=== PATIENT | male | born 1935 | race Caucasian/White ===

== ENCOUNTER → 2016-08-14 | Outpatient (CLI) | payer BC ==
[~2016-08-14] MED LIST: ACET-1257 PO; AMLO-110 PO; ASPI81TA28 PO; CHOL1CAP67 PO; CLOP1TAB15 PO; CYAN10005 PO; DXY100 PO; GLIM1TAB2 PO; KETO1DRO13 OPB; LISI-787 PO; LPT40 PO; NTRGSL/4 UT; NXM/40 PO; RIVA1TAB4 PO; SILD100T PO; TPRSR/50 PO; TPRSR100 PO
[2016-08-14 11:56] LABS: HEMATOCRIT 40.6 % (42-52); MEAN CELL VOLUME 89.2 fL (80-100); MEAN CORPUSCULAR HEMOGLOBIN 30.1 pg (25-34); MEAN CORPUSCULAR HGB CONC 33.7 g/dl (32-36); MEAN PLATELET VOLUME 9.7 fL (7.4-10.4); PLATELET COUNT 181 K/uL (130-400); RED BLOOD COUNT 4.55 M/uL (4.7-6.1); WHITE BLOOD COUNT 7.52 K/uL (4.8-10.8)
[2016-08-14 12:28] LABS: ESTIMATED AVERAGE GLUCOSE 148 mg/dl; HA1C FLAG Normal (Normal)
[2016-08-14 12:29] LABS: BLOOD UREA NITROGEN 26 mg/dl (7-18); BUN/CREATININE RATIO 18.2 (10-20); CALCIUM 8.6 mg/dl (8.5-10.1); CARBON DIOXIDE 28 mmol/L (21-32); CHLORIDE 108 mmol/L (98-107); GLUCOSE 213 mg/dl (70-99); POTASSIUM 4.2 mmol/L (3.5-5.1); SODIUM 144 mmol/L (136-145)
== END | disposition home or self-care (01) ==
LOC: C.LAB 10:25
PROVIDERS: ATTEND Internal Medicine Geriatric Medicine
DX: I48.91 Unspecified atrial fibrillation (principal); Z79.01 Long term (current) use of anticoagulants; I12.9 Hypertensive chronic kidney disease with stage 1 through stage 4 chronic kidney disease, or unspecified chronic kidney disease; N18.3 Chronic kidney disease, stage 3 (moderate); E11.9 Type 2 diabetes mellitus without complications; E55.9 Vitamin D deficiency, unspecified

== ENCOUNTER 2016-08-17 06:31 | Observation (INO) | payer BC ==
[2016-08-14 12:04] LABS: INR 1.3 (0.9-1.1); PARTIAL THROMBOPLASTIN RATIO 1.2; PROTHROMBIN TIME (PATIENT) 14.4 SECONDS (9.0-12.0)
[2016-08-17] VITALS (14 sets, daily range): BP systolic 118–187; BP diastolic 67–90; PULSE 61–102; TEMP 36.5–37.3; O2SAT 94–97; Ht 182.9 cm; Wt 85.4 kg
[~2016-08-17] VITALS: Ht 182.9 cm; Wt 85.4 kg
[~2016-08-17 06:31] MED LIST changes: +CEFAZOLIN 1000MG/55 ML D5W IV SCH; -KETO1DRO13 OPB; +LACTATED RINGER'S 1000ML 1,000 ML IV SCH; -TPRSR100 PO
[2016-08-17] MEDS ORDERED: KETO1DRO13 OPB (07:28)
[2016-08-17] MEDS ORDERED: BACITRACIN OINT 0.9 GM PKT ONE (07:42)
[2016-08-17] MEDS ORDERED: BACITRACIN 50000 UNIT VIAL ONE (07:43)
[2016-08-17] MEDS ORDERED: LIDOCAINE HCL 1% 20 ML VIAL ONE (07:43)
[2016-08-17] MEDS ORDERED: KEFZOL SPECIAL PROCEDURE STOCK 1 GM ADDVIAL IV ONE (08:36)
[2016-08-17] MEDS ORDERED: FENTANYL CITRATE INJ 50 MCG/1 ML 2 ML VIAL ONE ×2 (08:36→09:08)
[2016-08-17] MEDS ORDERED: MIDAZOLAM HCL 1 MG/ML 2ML VIAL ONE (08:36)
--- NOTE | 2016-08-17 08:56 | Procedure Note ---
Pre-Mod Sedation Assessment General Date of Moderate Sedation: Aug 17, 2016. Vital Signs: Vital Signs Past 12 Hours Date Time Temp Pulse Resp B/P Pulse Ox O2 Delivery O2 Flow Rate FiO2 08/17/16 07:05 36.9 20 135/83 96 Room Air Review Cardiovascular: + irregularly irregular Abdomen: normal bowel sounds Lungs: lungs clear Pre-Sedation Airway Assessment Oral Cavity: Chipped Teeth Smoking Status: Never Smoker Procedure Planning Contraindications-for Mod Sed: None Yes Notes The planned sedation has been discussed with the patient and consent obtained. I have identified the patient, determined the appropriateness of sedation and have assessed the patient immediately prior to the procedure. All medicine(s) and interventions are by my order.
--- NOTE | 2016-08-17 08:57 | History & Physical Bridge Note ---
H&P Re-Evaluation Bridge Note: I have examined the patient, reviewed the History & Physical and in the interval since the performance of the History & Physical I have noted the following changes of clinical significance: No changes noted. I reviewed the indications, procedure, risks and alternatives with him and he understands and agrees to proceed. Consent obtained.
--- NOTE | 2016-08-17 09:52 | Procedure Note ---
Post-Mod Sedation Assessment General Date of Moderate Sedation Aug 17, 2016. Vital Signs: Vital Signs Past 12 Hours Date Time Temp Pulse Resp B/P Pulse Ox O2 Delivery O2 Flow Rate FiO2 08/17/16 07:05 36.9 20 135/83 96 Room Air Review - Discharge Criteria Vital Signs Stable: Yes Alert/Oriented/Conversant: Yes Returned to Baseline Mental St: Yes Nausea Absent/Minimal: Yes Pain/Discomfort/Absent/Minimal: Yes Normal/Baseline Respirations: Yes Active Bleeding?: No
--- NOTE | 2016-08-17 09:54 | Cardiology Procedure Brief Nt ---
Preliminary Cardiology Note Procedure Date Aug 17, 2016. Pre-Procedure Diagnosis atrial fibrillation with pauses Post-Procedure Diagnosis same Procedure(s) Performed Single-chamber pacemaker implantation Rating Examiner Dr. Canales Overlock Sleeve Setter(s) none Estimated Blood Loss 50 cc Preliminary Findings Good lead position, good measurements Recommendations Monitor overnight Specimens None Anesthesia local with sedation Complication(s) None Disposition PCU
[2016-08-17] MEDS ORDERED: KETOROLAC TROMETHAMINE 10 MG TAB PO PRN (10:00)
[2016-08-17] MEDS ORDERED: ACETAMINOPHEN 325 MG TAB PO PRN (10:00)
[2016-08-17] MEDS ORDERED: NITROGLYCERIN 0.4 MG SL PER TAB CHARGE UT PRN (10:00)
[2016-08-17] MEDS: METOPROLOL SUCC 50MG EXT REL TAB PO SCH ×2 (10:00→13:36)
--- NOTE | 2016-08-17 11:14 | OPERATIVE REPORT ---
DATE OF OPERATION: 08/17/2016 PREOPERATIVE DIAGNOSIS: Atrial fibrillation with pauses. POSTOPERATIVE DIAGNOSIS: Same. PROCEDURE: Single chamber pacemaker implantation. SURGEON: Lyndon Canales M.D. ANESTHESIA: Local with sedation. HISTORY OF PRESENT ILLNESS: This is an 81-year-old gentleman who has a history of permanent atrial fibrillation and very frequent premature ventricular beats. When treated with beta blockade. The premature beats were suppressed; however, he developed significant pauses of approaching 3 seconds and the concern was to maintain beta blockade in the setting of a slow heart rate. He underwent attempt at PVC ablation, but this was unsuccessful on 06/01/2016. We therefore are going to implant a pacemaker to prevent the pauses and add beta blockade. 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 After obtaining informed consent for the procedure, he was brought to the laboratory on the morning of 08/17/2016 being NPO after midnight. He was identified in the laboratory, prepped and draped in standard sterile manner for a left-sided pacemaker implantation. The left prepectoral region was anesthetized with 1% lidocaine local anesthetic and left subclavian venipuncture was performed by percutaneous technique and a guidewire placed through the left subclavian vein into the superior vena cava. The area was further infiltrated with 1% lidocaine local anesthetic and a 5 cm incision was made parallel to the left clavicle and 2 cm below it and carried down to the anterior pectoralis fascia. A pacemaker pocket was formed by blunt dissection anterior to the pectoralis fascia and a bacitracin-soaked sponge (50,000 units in 50 mL normal saline solution) was placed in the pocket. An 8-[place] Medtronic lead introducer was placed over the guidewire into the left subclavian vein, the dilator and guidewire were removed and a bipolar active fixation steroid-tipped ventricular lead was advanced through the introducer into the superior vena cava. The guidewire was placed through the introducer and introducer stripped away from lead and guidewire. Using a curved stylette, the ventricular lead was advanced through the right ventricular outflow tract into the pulmonary artery and then using a straight stylette was positioned in the right ventricular apex. Once in position, the ventricular pacing threshold was evaluated in bipolar configuration at a pulse width of 0.5 milliseconds. Final ventricular pacing threshold was 0.4 volts with a current of 0.5 milliamp, 5-volt lead impedance was 749 ohms and R-waves were sensed at 4.1 millivolts. Diaphragmatic pacing was not present with a 10 volt bipolar output. Once leads were in position, it was attached to the anterior pectoralis fascia using 2 sutures of 2-0 silk around the lead collar. The bacitracin-soaked sponge was removed from the pocket, the guidewire was removed from left subclavian vein and hemostasis was obtained. There was a fair amount of oozing as the patient is on aspirin and Plavix, which were not held, he was also on Xarelto, which was held. The pacemaker was placed in the pocket with the lead coiled beneath it and the incision was closed with a running double subcutaneous closure of 3-0 Vicryl, followed by a running subcuticular skin closure of 4-0 Vicryl. Bacitracin ointment was placed on incision and a pressure dressing applied. The patient tolerated the procedure well, there were no complications and estimated blood loss was 50 mL. The patient was transferred to the holding area and subsequently will go to the telemetry unit. The ventricular lead is a Medtronic model 5076, serial number [id number] and is a bipolar active fixation steroid-tipped MRI compatible lead. The pacemaker is a Medtronic Advisa SR MRI SureScan, model A3SR01 serial number [id number]. This device was reprogrammed in the laboratory to final settings. This is an MRI compatible system. SHERINE
[2016-08-17] MEDS ORDERED: IV FLUIDS COMPLETED PRN (14:30)
[2016-08-17] MEDS: CEFAZOLIN IV 2,000 MG in DEXTROSE 5% 50ML 50 ML IV SCH (17:28)
[2016-08-17] MEDS ORDERED: ATORVASTATIN 40 MG TAB PO SCH (21:00)
[2016-08-18 00:20] VITALS: O2SAT 96
[2016-08-18] MEDS: CEFAZOLIN IV 2,000 MG in DEXTROSE 5% 50ML 50 ML IV SCH ×2 (01:55→09:33)
[2016-08-18 03:04] VITALS: BP 166/86; PULSE 70; TEMP 36.6; O2SAT 96
[2016-08-18 04:20] VITALS: O2SAT 96
[2016-08-18 06:39] LABS: CREATININE 1.4 mg/dl (0.60-1.40)
--- NOTE | 2016-08-18 07:52 | DIAGNOSTIC IMAGING REPORT ---
CHEST 2 VIEWS ROUTINE HISTORY: EXACT TIME ORDERED Evaluate for pneumothorax and lead placement COMPARISON: Chest 02/12/2007. FINDINGS: Interval placement of a left-sided single lead pacemaker. The lead appears intact. No pneumothorax. No pleural effusions. The heart remains mildly enlarged. The lungs are clear. IMPRESSION: Left-sided single lead pacemaker. The lead is intact. No pneumothorax. Electronically signed by: Marquez Khan M.D. 08/18/2016 7:50 AM Dictated Date/Time: 08/18/2016 7:48 AM
[2016-08-18 08:03] VITALS: BP 142/73; PULSE 63; TEMP 36.8; O2SAT 96
[2016-08-18] MEDS ORDERED: TPRSR100 PO (08:53)
--- NOTE | 2016-08-18 08:56 | Cardiology Follow-Up ---
Subjective Date of Service: Aug 18, 2016. Pt evaluation today including: conversation w/ patient, physical exam, lab review, review of studies, review of inpatient medication list History of Present Illness Doing well post pacemaker yesterday, no significant incisional discomfort. No palpitations. Social History Smoking Status: Never Smoker History of Alcohol Use: Yes (1 a week) Review of Systems Respiratory: No shortness of breath Cardiac: No chest pain Objective Vital Signs Past 12 Hours Date Time Temp Pulse Resp B/P Pulse Ox O2 Delivery O2 Flow Rate FiO2 08/18/16 08:03 36.8 63 20 142/73 96 Room Air 08/18/16 04:20 96 Room Air 08/18/16 03:04 36.6 70 20 166/86 96 Room Air 08/18/16 00:20 96 Room Air 08/17/16 23:33 36.6 88 18 160/68 96 Room Air Last Recorded Weight-Kilograms: 85.400 Intake & Output 8-Hour Column 08/17/16 08/18/16 08/18/16 16:00 00:00 08:00 Intake Total 40 ml 375 ml 60 ml Output Total 375 ml 500 ml 650 ml Balance -335 ml -125 ml -590 ml 24-Hour Column 08/18/16 08:00 Intake Total 475 ml Output Total 1525 ml Balance -1050 ml Physical Exam Constitutional: Level of Distress: NAD Lungs: Auscultation: breath sounds normal Cardiovascular: Heart Auscultation: no rubs, irregular rate rhythm Pacer site is clean and dry, no hematoma. Data Laboratory Results: Last 24 Hours Test 08/18/16 05:31 Creatinine 1.40 mg/dl Est Creatinine Clear Calc Drug Dose 44.7 ml/min Estimated GFR () 53.8 Estimated GFR (Non- 46.5 Imaging: Chest x-ray shows good lead position, no pneumothorax EKG: Atrial fibrillation with PVCs and occasional ventricular pacing. Telemetry reviewed: Atrial fibrillation with frequent PVCs, intermittent ventricular pacing, appropriate function. Pacemaker evaluation: Excellent pacing and sensing characteristics. Assessment and Plan #1. Postop pacemaker: The device is functioning well, he is stable for discharge today. He should have his last dose of antibiotic which could be given slightly early if desired. I will arrange follow-up for Sunday. We will send him home on an increased dose of beta blockade and monitor his arrhythmia as an outpatient using his pacemaker.
--- NOTE | 2016-08-18 08:56 | Discharge Instructions ---
Discharge Instructions Admission Atrial Fibrillation With Slow Ventricular Response Discharge Discharge Diagnosis / Problem: S/P Single-chamber pacemaker implantation Discharge Goals Goal(s): Improve disease control Activity Recommendations Activity Limitations: as noted below . Instructions / Follow-Up Instructions / Follow-Up ACTIVITY RECOMMENDATIONS: * Do not raise affected arm over head for 2 weeks. SPECIAL CARE INSTRUCTIONS: * If bleeding occurs, apply direct pressure to area for 5 minutes. * Call your doctor if you have severe pain, fever, drainage or bleeding at site. * Keep dressing on and dry for 48 hours then remove. * Keep any scheduled doctor's appointment. * Implant Card - hand held device with website information given. SKIN IRRITATION: * You may experience some redness and/or swelling in the area where radiation was administered. If any skin irritation occurs, please contact your family physician. FOLLOW UP VISIT: 08/21/16 @ 10:15 am for incision check Current Hospital Diet Patient's current hospital diet: AHA Diet (Heart Healthy) Discharge Diet Recommended Diet: AHA Diet (Heart Healthy) Pending Studies Studies pending at discharge: no Laboratory Results Hemoglobin A1c Test 08/14/16 10:35 Range/Units Estimated Average Glucose 148 mg/dl Hemoglobin A1c 6.8 H 4.5-5.6 % Medical Emergencies . Who to Call and When: Medical Emergencies: If at any time you feel your situation is an emergency, please call 911 immediately. . Non-Emergent Contact Non-Emergency issues call your: Sped Teacher . . "Provider Documentation" section prepared by Jennifer Roth. VTE Core Measure Inpt VTE Proph given/why not?: Treatment not indicated
[2016-08-18] MEDS ORDERED: CLOPIDOGREL BISULFATE 75 MG TAB PO SCH (09:00)
[2016-08-18] MEDS: METOPROLOL SUCC 50MG EXT REL TAB PO SCH (09:00)
[2016-08-18] MEDS ORDERED: GLIMEPIRIDE 2 MG TAB PO SCH (09:00)
[2016-08-18] MEDS ORDERED: ASPIRIN 81 MG ECTAB PO SCH (09:00)
[2016-08-18] MEDS ORDERED: CYANOCOBALAMIN 500 MCG TAB (VIT B-12) PO SCH (09:00)
[2016-08-18] MEDS ORDERED: AMLODIPINE BESYLATE 5 MG TAB PO SCH (09:00)
[2016-08-18] MEDS ORDERED: LISINOPRIL/HCTZ 20/12.5MG TAB PO SCH (09:00)
[2016-08-18 09:58] VITALS: BP 142/73; PULSE 63; TEMP 36.8; O2SAT 96
[2016-08-18] MEDS ORDERED: RIVAROXABAN 10 MG TAB PO SCH (16:45)
--- NOTE | 2016-08-18 17:23 | Discharge Summary ---
Discharge Summary Admission Date: Aug 17, 2016 at 09:59 Discharge Date: Aug 18, 2016 Discharge Disposition: Home Primary Diagnosis: Atrial fibrillation with slow ventricular response Procedures: Single chamber pacemaker implantation Discharge Instructions Last Recorded Wt (Kilograms): 85.400 Activity Recommendations: limitations as noted below Allergies: Coded Allergies: No Known Allergies (Verified , 08/17/16) Additional Instructions: ACTIVITY RECOMMENDATIONS: * Do not raise affected arm over head for 2 weeks. SPECIAL CARE INSTRUCTIONS: * If bleeding occurs, apply direct pressure to area for 5 minutes. * Call your doctor if you have severe pain, fever, drainage or bleeding at site. * Keep dressing on and dry for 48 hours then remove. * Keep any scheduled doctor's appointment. * Implant Card - hand held device with website information given. SKIN IRRITATION: * You may experience some redness and/or swelling in the area where radiation was administered. If any skin irritation occurs, please contact your family physician. FOLLOW UP VISIT: Keep any scheduled doctor appointments. Special Care: Call your doctor if: * Temperature above 101 degrees * Pain not relieved by pain medicine ordered * There is increased drainage or redness from any incision * You have any unanswered questions or concerns. Avoid all tobacco products. If you need help to stop smoking, call [place]'s FREE QUITLINE at . This is a free call. Admission HPI This is an 81-year-old gentleman who has a history of permanent atrial fibrillation and very frequent premature ventricular beats. When treated with beta blockade. The premature beats were suppressed; however, he developed significant pauses of approaching 3 seconds and the concern was to maintain beta blockade in the setting of a slow heart rate. He underwent attempt at PVC ablation, but this was unsuccessful on 06/01/2016. We therefore are going to implant a pacemaker to prevent the pauses and add beta blockade. 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 Admission Physical Exam Additional Comments: Constitutional: Alert, cooperative and in no distress. HEENT: Unremarkable Neck: No jugular venous distention, carotid pulses are irregular but otherwise normal and equal bilaterally without bruits. Pulmonary: Clear to auscultation bilaterally. Cardiac: Irregular rhythm with no murmur, gallop or rub. Abdomen: Soft, nontender with normal bowel sounds. Extremities: No edema. Distal pulses intact. Neurologic: No focal findings. Gait is steady. Skin: No rash, ecchymoses or petechiae. Hospital Course Patient with atrial fibrillation with pauses underwent single-chamber pacemaker implantation on 08/18/[address] Canales. He tolerated the procedure well. Device check the following day showed excellent sensing and pacing characteristics. CXR showed good lead placement and no evidence of pneumothorax. He was deemed stable for discharge home and will have a follow-up appointment on 08/21/16 for a wound check. His Metoprolol was increased to 100 mg daily upon discharge. Total time spent on discharge = This includes examination of the patient, discharge planning, medication reconciliation, and communication with other providers.
== END 2016-08-18 10:45 | disposition home or self-care (01) ==
LOC: C.ACU 06:31 → C.2T 09:59
PROVIDERS: ADMIT Internal Medicine Cardiovascular Disease; ATTEND Internal Medicine Cardiovascular Disease
DX: I48.2 Chronic atrial fibrillation (principal); I42.9 Cardiomyopathy, unspecified; Z79.01 Long term (current) use of anticoagulants; I49.5 Sick sinus syndrome

== ENCOUNTER → 2017-01-18 | Outpatient (CLI) | payer BC ==
[~2017-01-18] MED LIST changes: -CEFAZOLIN 1000MG/55 ML D5W IV SCH; -DXY100 PO; +KETO1DRO13 OPB; -LACTATED RINGER'S 1000ML 1,000 ML IV SCH; -TPRSR/50 PO; +TPRSR100 PO
[2017-01-18 10:44] LABS: BASO % 0.5 %; BASO ABS # 0.04 K/uL (0-0.2); COMPLETE YES; EOS % 2.5 %; HEMATOCRIT 40.1 % (42-52); IG% 0.1 %; LYMPH % 23.7 %; LYMPH ABS # 1.96 K/uL (1.2-3.4); MEAN CELL VOLUME 89.3 fL (80-100); MEAN CORPUSCULAR HEMOGLOBIN 29.2 pg (25-34); MEAN CORPUSCULAR HGB CONC 32.7 g/dl (32-36); MEAN PLATELET VOLUME 9.8 fL (7.4-10.4); MONO % 8.1 %; NEUT % 65.1 %; PLATELET COUNT 158 K/uL (130-400); RED BLOOD COUNT 4.49 M/uL (4.7-6.1); WHITE BLOOD COUNT 8.27 K/uL (4.8-10.8)
[2017-01-18 11:11] LABS: ESTIMATED AVERAGE GLUCOSE 177 mg/dl; HA1C FLAG Normal (Normal)
[2017-01-18 11:15] LABS: BLOOD UREA NITROGEN 28 mg/dl (7-18); BUN/CREATININE RATIO 18.8 (10-20); CALCIUM 8.8 mg/dl (8.5-10.1); CARBON DIOXIDE 28 mmol/L (21-32); CHLORIDE 106 mmol/L (98-107); GLUCOSE 144 mg/dl (70-99); POTASSIUM 4.7 mmol/L (3.5-5.1); SODIUM 142 mmol/L (136-145)
[2017-01-18 11:52] LABS: URINE PROTIEN/CREAT RATIO 0.2 (0-0.2); URINE TOTAL PROTEIN 27.3 mg/dl (0-11.9)
== END | disposition home or self-care (01) ==
LOC: C.LAB 09:22
PROVIDERS: ATTEND Internal Medicine Geriatric Medicine
DX: E11.29 Type 2 diabetes mellitus with other diabetic kidney complication (principal); N18.3 Chronic kidney disease, stage 3 (moderate); I12.9 Hypertensive chronic kidney disease with stage 1 through stage 4 chronic kidney disease, or unspecified chronic kidney disease; E78.5 Hyperlipidemia, unspecified; E55.9 Vitamin D deficiency, unspecified; R00.1 Bradycardia, unspecified; I42.9 Cardiomyopathy, unspecified

== ENCOUNTER → 2017-04-25 | Outpatient (CLI) | payer BC ==
[2017-04-25 10:09] LABS: ESTIMATED AVERAGE GLUCOSE 163 mg/dl; HA1C FLAG Normal (Normal)
[2017-04-25 10:21] LABS: BLOOD UREA NITROGEN 33 mg/dl (7-18); BUN/CREATININE RATIO 22.1 (10-20); CALCIUM 9.3 mg/dl (8.5-10.1); CARBON DIOXIDE 28 mmol/L (21-32); CHLORIDE 107 mmol/L (98-107); CHOLESTEROL 141 mg/dl (0-200); GLUCOSE 140 mg/dl (70-99); POTASSIUM 4.1 mmol/L (3.5-5.1); SODIUM 142 mmol/L (136-145); TRIGLYCERIDES 125 mg/dl (0-150); VERY LOW DENSITY LIPOPROT CALC 25 mg/dl
[2017-04-25 10:24] LABS: CHOLESTEROL/HDL RATIO 3.4; HDL CHOLESTEROL 41 mg/dl; LDL CHOLESTEROL CALCULATED 75 mg/dl
== END | disposition home or self-care (01) ==
LOC: C.LAB 07:23
PROVIDERS: ATTEND Internal Medicine Geriatric Medicine
DX: I25.10 Atherosclerotic heart disease of native coronary artery without angina pectoris (principal); I12.9 Hypertensive chronic kidney disease with stage 1 through stage 4 chronic kidney disease, or unspecified chronic kidney disease; N18.3 Chronic kidney disease, stage 3 (moderate); E11.22 Type 2 diabetes mellitus with diabetic chronic kidney disease; I48.2 Chronic atrial fibrillation; Z79.01 Long term (current) use of anticoagulants

== ENCOUNTER → 2017-11-14 | Outpatient (CLI) | payer BC ==
--- NOTE | 2017-11-14 09:25 | DIAGNOSTIC IMAGING REPORT ---
L HIP UNILATERAL 2 VIEWS, R HIP UNILATERAL 2 VIEWS CLINICAL HISTORY: 82 years-old Male presenting with PAIN. TECHNIQUE: Frontal and frog-leg lateral views of the right and left hips were obtained. COMPARISON: 09/18/2014. FINDINGS: Left hip: Left hip joint congruent. Normal appearance of the left femoral head. No acute fracture or malalignment. No advanced degenerative change. Joint space preserved. Atherosclerosis. No change since the prior exam. Right hip: Hip joint congruent. Normal appearance of the right femoral head. No acute fracture or malalignment. No advanced degenerative change. Joint spaces preserved. Atherosclerosis. No change since the prior exam. IMPRESSION: No acute osseous injury or advanced degenerative change of the right or left hips. No change since 2014. Electronically signed by: Albaro Alvarez M.D. 11/14/2017 9:23 AM Dictated Date/Time: 11/14/2017 9:22 AM
[2017-11-14 11:35] LABS: BASO % 0.4 %; BASO ABS # 0.04 K/uL (0-0.2); EOS % 3.7 %; EOS ABS # 0.34 K/uL (0-0.5); HEMATOCRIT 40.1 % (42-52); HEMOGLOBIN 13.2 g/dL (14.0-18.0); IG# 0.02 K/uL (0.00-0.02); LYMPH % 17.3 %; MEAN CELL VOLUME 90.5 fL (80-100); MEAN CORPUSCULAR HEMOGLOBIN 29.8 pg (25-34); MEAN CORPUSCULAR HGB CONC 32.9 g/dl (32-36); MEAN PLATELET VOLUME 9.8 fL (7.4-10.4); MONO % 8.9 %; MONO ABS # 0.82 K/uL (0.11-0.59); NEUT % 69.5 %; NEUT ABS # 6.42 K/uL (1.4-6.5); PLATELET COUNT 181 K/uL (130-400); RED CELL DISTRIBUTION WIDTH CV 15.7 % (11.5-14.5); RED CELL DISTRIBUTION WIDTH SD 52.1 fL (36.4-46.3); WHITE BLOOD COUNT 9.24 K/uL (4.8-10.8)
[2017-11-14 11:58] LABS: BLOOD UREA NITROGEN 28 mg/dl (7-18); CALCIUM 8.6 mg/dl (8.5-10.1); CARBON DIOXIDE 28 mmol/L (21-32); CREATININE 1.56 mg/dl (0.60-1.40); GLUCOSE 212 mg/dl (70-99); POTASSIUM 4.4 mmol/L (3.5-5.1); SODIUM 138 mmol/L (136-145)
[2017-11-14 12:16] LABS: HEMOGLOBIN A1C 7.6 % (4.5-5.6)
== END | disposition home or self-care (01) ==
LOC: C.RADBC 07:58
PROVIDERS: ATTEND Internal Medicine Geriatric Medicine
DX: M25.551 Pain in right hip (principal); M25.552 Pain in left hip; I10 Essential (primary) hypertension; D64.9 Anemia, unspecified; E11.9 Type 2 diabetes mellitus without complications; E11.29 Type 2 diabetes mellitus with other diabetic kidney complication; E55.9 Vitamin D deficiency, unspecified; N18.3 Chronic kidney disease, stage 3 (moderate)

== ENCOUNTER → 2017-11-19 | Outpatient (CLI) | payer BC ==
--- NOTE | 2017-11-19 12:28 | DIAGNOSTIC IMAGING REPORT ---
BILATERAL LOWER EXTREMITY ARTERIAL DOPPLER ULTRASOUND CLINICAL HISTORY: Intermittent claudication. Bilateral hip pain. COMPARISON STUDY: Bilateral lower extremity arterial Doppler ultrasound September 21, 2014. FINDINGS: Ankle to brachial indices could not be obtained due to noncompressibility of the vessels. Biphasic flow is identified throughout each lower extremity. Moderate atherosclerotic plaque was noted. An elevated peak systolic velocity of 325 cm/s was noted within the right posterior tibial artery. No additional elevated velocities were identified. Vessels appear patent. IMPRESSION: 1. Moderate atherosclerotic plaque within each lower extremity. 2. 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 3. Biphasic flow throughout each lower extremity. Electronically signed by: Murray Parra M.D. 11/19/2017 12:27 PM Dictated Date/Time: 11/19/2017 12:24 PM
--- NOTE | 2017-11-19 12:34 | DIAGNOSTIC IMAGING REPORT ---
ABDOMINAL AORTIC ANEURYSM CLINICAL HISTORY: Intermittent claudication. COMPARISON STUDY: Abdominal aortic ultrasound September 15, 2014. FINDINGS: The caliber of the abdominal aorta is normal. The proximal abdominal aorta measures 1.6 cm, the mid abdominal aorta measures 1.8 cm and the distal abdominal aorta measures 1.6 cm. 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 IMPRESSION: Normal caliber abdominal aorta. Electronically signed by: Murray Parra M.D. 11/19/2017 12:33 PM Dictated Date/Time: 11/19/2017 12:27 PM
== END | disposition home or self-care (01) ==
LOC: C.ULTR 09:45
PROVIDERS: ATTEND Internal Medicine Geriatric Medicine
DX: I73.9 Peripheral vascular disease, unspecified (principal); M25.551 Pain in right hip; M25.552 Pain in left hip

== ENCOUNTER 2019-11-03 10:53 | Inpatient (IN) ==
[2019-11-03] MEDS ORDERED: SODIUM CHLORIDE 0.9% 500 ML IV ONE (11:16)
[2019-11-03 11:35] LABS: Basophils # (auto) 0.03 K/uL (0-0.2); Basophils % (auto) 0.4 %; Eosinophils # (auto) 0.13 K/uL (0-0.5); Eosinophils % (auto) 1.5 %; Hematocrit (blood only) 35.7 % (42-52); Hemoglobin 11.5 g/dL (14.0-18.0); Immature Granulocytes # (auto) 0.02 K/uL (0.00-0.02); Immature Granulocytes % (auto) 0.2 %; Lymphocytes # (auto) 0.97 K/uL (1.2-3.4); Lymphocytes % (auto) 11.5 %; Mean Corpuscular Hemoglobin 28.8 pg (25-34); Mean Corpuscular Hgb Conc 32.2 g/dL (32-36); Mean Corpuscular Volume 89.5 fL (80-100); Mean Platelet Volume 9.3 fL (7.4-10.4); Monocytes # (auto) 0.71 K/uL (0.11-0.59); Monocytes % (auto) 8.4 %; Neutrophils # (auto) 6.58 K/uL (1.4-6.5); Platelet Count 216 K/uL (130-400); RDW Coefficient of Variation 15.5 % (11.5-14.5); RDW Standard Deviation 50.3 fL (36.4-46.3); Red Blood Count 3.99 M/uL (4.7-6.1); White Blood Count 8.44 K/uL (4.8-10.8)
--- NOTE | 2019-11-03 11:37 | Emergency Department Note ---
Impression & Plan Seizure, Dehydration, Hypomagnesemia, History of subarachnoid hemorrhage, History of intraventricular hemorrhage, CKD (chronic kidney disease), Cardiac pacemaker in situ, Generalized weakness ED Provider Note NAME: CATERINA CARMEN AGE: 84 SEX: M ARRIVES VIA: Ambulance INFORMANT: Patient, ED PROVIDER(S): Vasu Cunningham MD CHIEF COMPLAINT: Generalized weakness MEDICAL DECISION MAKING: The patient is a pleasant 84-year-old gentleman with a past medical history of A. fib (previously on Xarelto but on hold 2 recent SAH), SSS s/p PPM, CKD, ischemic cardiomyopathy, recent spontaneous subarachnoid hemorrhage with intraventricular hemorrhage and associated infarcts several weeks ago, [place] [facility] [place] [facility] from [facility] on 10/27, able to ambulate with a cane but has developed generalized weakness and intermittent confusion over the past several days where he now unable to ambulate due to generalized weakness. On arrival the patient is chronically ill-appearing but no acute distress, afebrile stable vital signs. The patient has no focal neuro deficits but exhib its generalized weakness. EKG was performed which had significant artifact but no overt ST elevation or depression. Chest x-ray with some mild vascular prominence and otherwise no overt cardiopulmonary process. WBC and platelets within normal limits. H/H 11.5/35.7 decreased from prior however in the setting of complicated hospitalization. Chemistry with creatinine of 1.5 approximate to prior range of values in the setting of CKD., There is no acidosis. Calcium 6.9 and magnesium 0.4 with Mg repletion provided. LFTs unremarkable. Troponin 0.025, within normal limits. TSH within normal limits. CT head demonstrates resolution of the patient's prior subarachnoid hemorrhage but with trace intraventricular blood within the posterior right lateral ventricle which is "recurrent versus residual". Given the patient's reassuring exam initial plan was to repeat CT scan for further evaluation of chronicity of CT findings however he subsequently did have a seizure-like episode where RN reported patent began to have tonic-clonic movements with flexion of arms towards his chest and unresponsiveness which lasted approximately 60 seconds, upon my arrival to the bedside the patient exhibited subsequent alertness but postictal-like state with left gaze deviation followed by delirium/agitation and inability to redirect. This gradually resolved over the course of several minutes and additionally improved following 0.5 mg of Ativan. Given this new episode, case was discussed with [facility], Dr. King, stroke neurology who reviewed the patient's record and given description of CT findings today, agrees that findings are most likely related to residual intraventricular blood. Moreover the patient's seizure-like episode is likely related to seizure activity in the setting of his prior subarachnoid hemorrhage. The patient was not discharged on any prophylactic AED. Thus, recommends initiation of Keppra with initial loading dose of 1500 mg followed by 1,000mg twice daily. Additionally recommends repeat MRI to reevaluate for possible new CVA given his history of multifocal infarcts and basilar stenosis. Given small amount of blood noted on CT, he explains that even in the event that MRI continues with suspicion of possible recurrent bleed, he did not believe that this would necessarily require transfer as would not likely require any neurosurgical intervention. Moreover given the current climate with the novel coronavirus pandemic, attempt is being made to limit transfers that are not absolutely necessary. He reports a spot EEG could be considered however this would be unlikely to change the plan as the patient's presentation is consistent with seizure. Dr. King, did attempt to see if Dr. Kay, Neurosurgery, who followed the patient on his [facility] admission was available to discuss when he was going recommend to reinitiate the patient's anticoagulation but he was not on today. Recommends, [facility] admitting reaching out to him during admission to discuss this question. Dr. King's recommendation and plan for admission here was discussed with the patient, who was improved, and his female partner at the bedside and both expressed agreement with this plan. Case was discussed with Dr. Stephens, [facility] hospitalist, who expressed reservations about keeping patient here but agreed to evaluate the patient for admission. Patient was subsequently evaluate by Antonio Sotelo [place] admitting team PAC, who evaluated the patient and reviewed case with Dr. Zonia Rhodes, [place] admitting hospitalist, who also expressed reservations but would agree to admit if patie nt's MRI was reassuring. However, she explains that if MRI shows any evidence of acute process, [facility] would not accept admission and would recommend transfer to [facility]. Patient signed out to Dr. Hope at change of shift. At the time of signout, MRI just being performed after completing necessary steps for clearance ([employer] certified hyperbaric technician to be present, [facility] MRI/MRA-reports to accompany patient chart, etc.) given patient's PPM. Triage Nursing notes reviewed and agree them. Additional history obtained from [facility] discharge summary which he describes the patient's admission for [facility] but not on [facility], MRI/MRA which demonstrated jevon-mesencephalic subarachnoid hemorrhage with multifocal ischemic strokes in the left portia and cerebellum with suspicion for vasculitis. He was discharged to [facility] on 10/15. Prior medical records reviewed Vital Signs: reviewed and remarkable for hypertension. Differential diagnosis: Infection, dehydration, metabolic abnormality, hypo/hyperglycemia, electrolyte disturbance, anemia, hypoxia, cardiac sources, intracerebral event, toxicologic, neurologic, as well as other pathologies. ER treatment provided: See below Diagnostics interpreted by me: ECG: Sinus tachycardia with frequent PVCs, 118 bpm, left axis deviation, no ove rt ST elevation or depression. Cardiac Monitoring: ST, 118 bpm, frequent PVCs, Laboratory studies: See below Imaging studies: CT SCAN OF THE BRAIN WITHOUT IV CONTRAST CLINICAL HISTORY: Generalized weakness. Recent hemorrhage. COMPARISON STUDY: CT of the brain dated 10/09/2019. TECHNIQUE: Unenhanced axial CT scan of the brain is performed from the vertex to the skull base. A dose lowering technique was utilized adhering to the principles of ALARA. CT DOSE: 729.78 mGycm FINDINGS: Brain parenchyma: There are age-related involutional changes noting mild to moderate patchy subcortical and periventricular microangiopathic change. There is no parenchymal hematoma, mass effect, or evidence of acute territorial is chemia by CT criteria. Calhoun-white matter differentiation is preserved. A small chronic lacunar infarct is noted in the right cerebellar hemisphere. No extra- axial fluid collection is seen. Ventricles, sulci, cisterns: Prominent secondary to involutional change. There is trace blood within the posterior horn of the right lateral ventricle (axial image #17). Intracranial vasculature: There is atherosclerotic calcification of the cavernous carotid and vertebral arteries. Calvarium: Unremarkable. Soft tissues: A calcified sialolith is noted in the left parotid gland. Sinuses and mastoids: The visualized paranasal sinuses are clear. The mastoid air cells are well pneumatized. Orbits: The bony orbits are grossly intact. IMPRESSION: 1. The majority of the hemorrhage seen on the 10/09/2019 examination has resolved. 2. There is trace recurrent or residual intraventricular blood within the posterior horn of the right lateral ventricle. 3. There is no parenchymal hematoma, midline shift, or evidence of acute territorial ischemia by CT criteria. --- XR chest 1V portable CLINICAL HISTORY: 84 years-old Male presenting with Chest Pain. TECHNIQUE: Portable upright AP view of the chest was obtained. COMPARISON: 08/18/2016. FINDINGS: Left subclavian pacer with single lead to the right ventricular apex. Atherosclerosis of the aortic arch. Cardiac silhouette mildly enlarged. Mild pulmonary vascular prominence. No focal opacity. No large effusion or pneumothorax. Degenerative changes of the thoracic spine. Degenerative changes of the left glenohumeral joint. Upper abdomen normal. IMPRESSION: 1. Cardiomegaly with mild volume overload. No advanced congestive change or david pulmonary edema Consultation(s): Dr. King, [facility] stroke neurology. See MDM. HPI: The patient is a pleasant 84-year-old gentleman with a past medical history of A. fib, CKD, ischemic cardiomyopathy with recent subarachnoid hemorrhage several weeks ago discharged from [facility] on 10/27 able to ambulate with a cane but has developed generalized weakness over the past several days were now he is unable to ambulate. Patient denies any headache, cough, congestion, fevers, nausea, vomiting, diarrhea. He does admit to having poor oral intake. ROS: See above HPI for pertinent positives & negatives. A total of 10 systems reviewed and were otherwise negative. PAST MEDICAL HISTORY:See Below PAST SURGICAL HISTORY:See Below FAMILY HISTORY:See Below SOCIAL HISTORY:See Below HOME MEDICATIONS:See Below ALLERGIES:See Below VITALS:See Below PHYSICAL EXAMINATION: GENERAL: Awake, alert, fatigued-appearing, in no distress HENT: Normocephalic, atraumatic. Oropharynx with dry mucous membranes and otherwise unremarkable. EYES: Normal conjunctiva. Sclera non-icteric. EOMI. No nystamgus. PEARRL. NECK: Supple. No nuchal rigidity. FROM. No JVD. RESPIRATORY: Clear to auscultation. CARDIAC: Tachycardic rate, normal rhythm. Extremities warm and well perfused. Pulses equal. ABDOMEN: Soft, non-distended. No tenderness to palpation. No rebound or guarding. No masses. RECTAL: Deferred. MUSCULOSKELETAL: Chest examination reveals no tenderness. The back is symmetrical on inspection without obvious abnormality. There is no CVA tenderness to palpation. No joint edema. LOWER EXTREMITIES: Calves are equal size bilaterally and non-tender. No edema. No discoloration. NEURO: Normal sensorium. No sensory or motor deficits noted. 5/5 strength and SILT x 4 extremities. Cerebellar function intact including hvrxwe-[id number], alternating palms, [id number]. SKIN: No rash or jaundice noted. Critical Care: I have personally spent greater than 125 minutes of critical care time in the direct management of this patient. This includes bedside care, interpretation of diagnostic studies, and testing, discussion with consultants, patient, and family members, and other required patient management activities. This 125 min utes is in excess of all separately billable procedures. Vasu Cunningham MD Past Med/Surg History Medical History (Updated 11/05/19 @ 17:08 by Nancy Hampton MD) Actinic keratosis BPH NOS w ur obs/LUTS Bradycardia Diverticulosis Hypocalcemia Inhibited sexual desire Knee pain Lyme disease Paronychia Sick sinus syndrome Tick bite Upper respiratory infection Ventricular tachycardia Surgical History S/P cardiac catheterization S/P cardiac pacemaker procedure S/P carotid endarterectomy Family History Father , age 61 of an MRI Myocardial infarction Daughter Breast cancer Brother Coronary heart disease Diabetes Melanoma of skin Mother , age 81 of lung cancer Lung cancer Social History Preferred Language: Italian Communication Ability: Effective Visual Impairment: No Limitations Hearing Ability: Normal Power Driven Brush Maker Required: No Beliefs That Will Affect Care: None marital status: Life Partner Current Living Situation: Spouse current occupational status: retired 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50, 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 Feels Safe at Home: Yes Smoking Status: Never smoker Hx Alcohol Use: No Hx Substance Use: No Allergies Allergies Allergy/AdvReac Type Severity Reaction Status Date / Time No Known Drug Allergies Allergy Verified 11/03/19 11:16 Home Meds Home Medications Medication Instructions Recorded Confirmed nitroglycerin 0.4 mg sublingual 0.4 mg SL Q5M PRN tab 06/30/19 11/03/19 tablet amlodipine 10 mg tablet 10 mg PO QAM 10/22/19 11/03/19 bisacodyl 10 mg rectal suppository 10 mg ND DAILY PRN 10/22/19 11/03/19 cholecalciferol (vitamin D3) 25 1,000 units PO QAM cap 10/22/19 11/03/19 mcg (1,000 unit) capsule cyanocobalamin (vitamin B-12) 1,000 mcg PO QAM cap 10/22/19 11/03/19 1,000 mcg capsule docusate sodium 100 mg capsule 100 mg PO BID 10/22/19 11/03/19 glucagon HCl 1 mg solution for 1 mg SQ Q20M PRN 10/22/19 11/03/19 injection metformin 500 mg tablet 500 mg PO BIDM 10/22/19 11/03/19 polyethylene glycol 3350 17 17 gm PO DAILY PRN 10/22/19 11/03/19 gram/dose oral powder tamsulosin 0.4 mg capsule 0.4 mg PO QAM 10/22/19 11/03/19 acetaminophen [Tylenol] 325 mg PO QID PRN 11/03/19 11/03/19 atorvastatin 40 mg PO HS 11/03/19 11/03/19 finasteride 5 mg PO QAM 11/03/19 11/03/19 aspirin [Aspirin Low Dose] 81 mg PO DAILY 11/04/19 11/04/19 Previous Rx's Medication Instructions Recorded calcium carbonate [Calcium 500] 500 mg PO BID #60 tab 11/05/19 famotidine 20 mg PO BID #60 tab 11/05/19 levetiracetam [Keppra] 500 mg PO BID #60 tab 11/05/19 magnesium chloride 64 mg PO DAILY #30 tab 11/05/19 metoprolol succinate 100 mg PO DAILY #30 tab 11/05/19 Results & Data (ED) Vital Signs Vital Signs - 24 hr 11/03/19 10:58 11/03/19 10:59 11/03/19 11:04 Temperature 36.6 C Temperature Source Oral Pulse Rate 99 H 106 H 93 H Pulse Rate [Finger] Pulse Rate from SpO2 Sensor 110 H 109 H Pulse Rhythm Regular Pulse Strength Normal Respiratory Rate 20 17 21 Respiratory Effort / Characteristics Non-Labored Spontaneous Respiratory Depth Normal Respiratory Pattern Regular Blood Pressure 157/83 H 157/83 H Blood Pressure [Right Arm] Blood Pressure Mean 107 110 Blood Pressure Mean [Right Arm] Blood Pressure Position Lying Pulse Oximetry 95 97 98 Oxygen Delivery Method Room Air Oxygen Flow Rate Sepsis Recent Fever Within 48 Hours No Sepsis New/Unexplained Change in Mental Status No Sepsis Action Taken by Nursing No Action Required 11/03/19 11:30 11/03/19 12:01 11/03/19 12:30 Temperature Temperature Source Pulse Rate 87 110 H Pulse Rate [Finger] Pulse Rate from SpO2 Sensor 111 H 103 H 124 H Pulse Rhythm Pulse Strength Respiratory Rate 18 19 Respiratory Effort / Characteristics Respiratory Depth Respiratory Pattern Blood Pressure 139/90 Blood Pressure [Right Arm] Blood Pressure Mean 94 Blood Pressure Mean [Right Arm] Blood Pressure Position Pulse Oximetry 97 92 88 L Oxygen Delivery Method Oxygen Flow Rate Sepsis Recent Fever Within 48 Hours Sepsis New/Unexplained Change in Mental Status Sepsis Action Taken by Nursing 11/03/19 13:00 11/03/19 13:30 11/03/19 13:37 Temperature Temperature Source Pulse Rate 96 H 112 H 88 Pulse Rate [Finger] Pulse Rate from SpO2 Sensor 115 H 108 H 103 H Pulse Rhythm Pulse Strength Respiratory Rate 18 15 31 H Respiratory Effort / Characteristics Respiratory Depth Respiratory Pattern Blood Pressure 84/59 L Blood Pressure [Right Arm] Blood Pressure Mean 71 Blood Pressure Mean [Right Arm] Blood Pressure Position Pulse Oximetry 91 93 86 L Oxygen Delivery Method Oxygen Flow Rate Sepsis Recent Fever Within 48 Hours Sepsis New/Unexplained Change in Mental Status Sepsis Action Taken by Nursing 11/03/19 13:40 11/03/19 13:43 11/03/19 13:47 Temperature Temperature Source Pulse Rate 102 H 114 H 133 H Pulse Rate [Finger] Pulse Rate from SpO2 Sensor 147 H 112 H 148 H Pulse Rhythm Pulse Strength Respiratory Rate 20 24 17 Respiratory Effort / Characteristics Respiratory Depth Respiratory Pattern Blood Pressure 201/173 H 202/171 H 202/188 H Blood Pressure [Right Arm] Blood Pressure Mean 176 176 196 Blood Pressure Mean [Right Arm] Blood Pressure Position Pulse Oximetry 91 85 L 91 Oxygen Delivery Method Oxygen Flow Rate Sepsis Recent Fever Within 48 Hours Sepsis New/Unexplained Change in Mental Status Sepsis Action Taken by Nursing 11/03/19 13:54 11/03/19 14:00 11/03/19 14:01 Temperature Temperature Source Pulse Rate 62 117 H 101 H Pulse Rate [Finger] Pulse Rate from SpO2 Sensor 131 H 104 H 122 H Pulse Rhythm Pulse Strength Respiratory Rate 13 14 24 Respiratory Effort / Characteristics Respiratory Depth Respiratory Pattern Blood Pressure 129/55 L 112/69 Blood Pressure [Right Arm] Blood Pressure Mean 72 81 Blood Pressure Mean [Right Arm] Blood Pressure Position Pulse Oximetry 92 Oxygen Delivery Method Oxygen Flow Rate Sepsis Recent Fever Within 48 Hours Sepsis New/Unexplained Change in Mental Status Sepsis Action Taken by Nursing 11/03/19 14:07 11/03/19 15:30 11/03/19 17:44 Temperature Temperature Source Pulse Rate 70 Pulse Rate [Finger] 88 70 Pulse Rate from SpO2 Sensor 106 H Pulse Rhythm Pulse Strength Respiratory Rate 19 25 H 16 Respiratory Effort / Characteristics Respiratory Depth Respiratory Pattern Blood Pressure 129/76 Blood Pressure [Right Arm] 136/62 140/73 Blood Pressure Mean 95 Blood Pressure Mean [Right Arm] 86 95 Blood Pressure Position Pulse Oximetry 90 94 97 Oxygen Delivery Method Nasal Cannula Nasal Cannula Oxygen Flow Rate 2 Sepsis Recent Fever Within 48 Hours Sepsis New/Unexplained Change in Mental Status Sepsis Action Taken by Nursing Laboratory Data Attestation: I reviewed the patient's lab results. Result diagrams: 11/03/19 20:59 11/05/19 12:42 Lab Results 11/03/19 11/03/19 11/03/19 Range/Units 11:30 11:30 11:30 WBC 8.44 (4.8-10.8) K/uL RBC 3.99 L (4.7-6.1) M/uL Hgb 11.5 L (14.0-18.0) g/dL Hct 35.7 L (42-52) % MCV 89.5 (80-100) fL MCH 28.8 (25-34) pg MCHC 32.2 (32-36) g/dL RDW Std Deviation 50.3 H (36.4-46.3) fL RDW Coeff of Crispin 15.5 H (11.5-14.5) % Plt Count 216 (130-400) K/uL MPV 9.3 (7.4-10.4) fL Immature Gran % (Auto) 0.2 % Neut % (Auto) 78.0 % Lymph % (Auto) 11.5 % [place] % (Auto) 8.4 % Eos % (Auto) 1.5 % Baso % (Auto) 0.4 % Immature Gran # (Auto) 0.02 (0.00-0.02) K/uL Neut # (Auto) 6.58 H (1.4-6.5) K/uL Lymph # (Auto) 0.97 L (1.2-3.4) K/uL [place] # (Auto) 0.71 H (0.11-0.59) K/uL Eos # (Auto) 0.13 (0-0.5) K/uL Baso # (Auto) 0.03 (0-0.2) K/uL PT 14.6 H (9.0-12.0) Seconds INR 1.4 H (0.9-1.1) APTT 29.4 (21.0-31.0) Seconds PTT Ratio 1.1 Sodium 139 (136-145) mmol/L Potassium 3.9 (3.5-5.1) mmol/L Chloride 99 (98-107) mmol/L Carbon Dioxide 29 (21-32) mmol/L Anion Gap 11.0 (3-11) BUN 24 H (7-18) mg/dl Creatinine 1.54 H (0.6-1.4) mg/dl Est Cr Clr Drug Dosing 38.5 ml/min Est GFR ( Amer) 47.0 Est GFR (Non-Af Amer) 40.5 BUN/Creatinine Ratio 15.6 (10-20) Glucose 196 H (70-99) mg/dl POC Glucose (70-99) mg/dl Calcium 6.9 L (8.5-10.1) mg/dl Phosphorus 4.3 (2.5-4.9) mg/dl Magnesium 0.4 L* (1.8-2.4) mg/dl Total Bilirubin 1.6 H (0.2-1) mg/dl AST 21 (15-37) U/L ALT 21 (12-78) U/L Alkaline Phosphatase 118 H (45-117) U/L Troponin I 0.025 (0-0.045) ng/ml Total Protein 7.7 (6.4-8.2) gm/dl Albumin 3.7 (3.4-5.0) gm/dl Globulin 4.0 (2.5-4.0) gm/dl Albumin/Globulin Ratio 0.9 (0.9-2) Lipase 198 (73-393) U/L TSH 2.190 (0.300-4.500) uIu/ml 11/03/19 11/03/19 11/03/19 Range/Units 14:06 20:59 20:59 WBC 7.47 (4.8-10.8) K/uL RBC 3.83 L (4.7-6.1) M/uL Hgb 11.1 L (14.0-18.0) g/dL Hct 33.9 L (42-52) % MCV 88.5 (80-100) fL MCH 29.0 (25-34) pg MCHC 32.7 (32-36) g/dL RDW Std Deviation 49.1 H (36.4-46.3) fL RDW Coeff of Crispin 15.3 H (11.5-14.5) % Plt Count 187 (130-400) K/uL MPV 9.0 (7.4-10.4) fL Immature Gran % (Auto) 0.5 % Neut % (Auto) 91.8 % Lymph % (Auto) 6.2 % [place] % (Auto) 1.3 % Eos % (Auto) 0.1 % Baso % (Auto) 0.1 % Immature Gran # (Auto) 0.04 H (0.00-0.02) K/uL Neut # (Auto) 6.85 H (1.4-6.5) K/uL Lymph # (Auto) 0.46 L (1.2-3.4) K/uL [place] # (Auto) 0.10 L (0.11-0.59) K/uL Eos # (Auto) 0.01 (0-0.5) K/uL Baso # (Auto) 0.01 (0-0.2) K/uL PT (9.0-12.0) Seconds INR (0.9-1.1) APTT (21.0-31.0) Seconds PTT Ratio Sodium 137 (136-145) mmol/L Potassium 3.5 (3.5-5.1) mmol/L Chloride 99 (98-107) mmol/L Carbon Dioxide 28 (21-32) mmol/L Anion Gap 9.0 (3-11) BUN 23 H (7-18) mg/dl Creatinine 1.21 D (0.6-1.4) mg/dl Est Cr Clr Drug Dosing 49.0 ml/min Est GFR ( Amer) 62.9 Est GFR (Non-Af Amer) 54.3 BUN/Creatinine Ratio 18.6 (10-20) Glucose 253 H (70-99) mg/dl POC Glucose 229 H (70-99) mg/dl Calcium 6.8 L (8.5-10.1) mg/dl Phosphorus (2.5-4.9) mg/dl Magnesium 1.0 L (1.8-2.4) mg/dl Total Bilirubin 1.2 H (0.2-1) mg/dl AST 19 (15-37) U/L ALT 18 (12-78) U/L Alkaline Phosphatase 114 (45-117) U/L Troponin I (0-0.045) ng/ml Total Protein 7.2 (6.4-8.2) gm/dl Albumin 3.4 (3.4-5.0) gm/dl Globulin 3.8 (2.5-4.0) gm/dl Albumin/Globulin Ratio 0.9 (0.9-2) Lipase (73-393) U/L TSH (0.300-4.500) uIu/ml Administered Medications Discontinued Medications [facility] Stop: 12/04/19 10:29 Last Admin: 11/05/19 08:54 Dose: 10 mg Documented by: [id number] Admin: 11/04/19 11:20 Dose: 10 mg Documented by: [id number] Aspirin (Ecotrin Ectab) 81 mg PO DAILY JOANN Stop: 12/05/19 08:59 Last Admin: 11/05/19 08:55 Dose: 81 mg Documented by: [id number] Aspirin (Ecotrin Ectab) 81 mg PO NOW ONE Stop: 11/04/19 13:31 Last Admin: 11/04/19 13:59 Dose: 81 mg Documented by: [id number] Atorvastatin Calcium (Lipitor) 40 mg PO [facility] Stop: 12/04/19 20:59 Last Admin: 11/04/19 20:44 Dose: 40 mg Documented by: [id number] Cyanocobalamin (Vitamin B-12) 1,000 [facility]cg [facility] [place] Stop: 12/04/19 10:29 Last Admin: 11/05/19 08:55 Dose: 1,000 mcg Documented by: [id number] Admin: 11/04/19 11:20 Dose: 1,000 mcg Documented by: [id number] Dexamethasone Sodium Phosphate (Decadron Pf) Confirm Administered Dose 10 mg .ROUTE .STK-MED ONE Stop: 11/03/19 15:12 Last Admin: 11/03/19 15:17 Dose: 10 mg Documented by: [id number] Docusate Sodium (Colace) 100 mg PO BID [facility] Stop: 12/04/19 10:29 Last Admin: 11/05/19 08:54 Dose: 100 mg Documented by: [id number] Admin: 11/04/19 20:44 Dose: 100 mg Documented by: [id number] Admin: 11/04/19 11:21 Dose: 100 mg Documented by: [id number] Famotidine (Pepcid) 20 mg PO BID [facility] Stop: 12/04/19 20:59 Last Admin: 11/05/19 08:54 Dose: 20 mg Documented by: [id number] Admin: 11/04/19 20:44 Dose: 20 mg Documented by: [id number] Finasteride (Proscar) 5 mg PO QAM [facility] Stop: 12/04/19 10:29 Last Admin: 11/05/19 08:54 Dose: 5 mg Documented by: [id number] Admin: 11/04/19 11:20 Dose: 5 mg Documented by: [id number] Gadobutrol (Gadavist 65ml) 8 ml IV ONCE PRN PRN Reason: Interaction Checking Stop: 11/07/19 19:42 Last Admin: 11/03/19 19:44 Dose: 8 ml Documented by: [id number] Heparin Sodium (Porcine) (Heparin Sodium (Porcine)) 5,000 units SQ Q12 [facility] Stop: 12/04/19 14:14 Last Admin: 11/05/19 09:06 Dose: Not Given Documented by: [id number] Admin: 11/04/19 23:47 Dose: 5,000 units Documented by: [id number] Cosigned by: [id number] Admin: 11/04/19 14:39 Dose: 5,000 units Documented by: [id number] Cosigned by: [id number] Sodium Chloride (Nss) 500 mls @ 999 mls/hr IV .Q31M ONE Stop: 11/03/19 11:46 Last Infusion: 11/03/19 12:15 Dose: 0 mls/hr Documented by: [id number] Admin: 11/03/19 11:34 Dose: 999 mls/hr Documented by: [id number] Magnesium Sulfate/Dextrose (Magnesium Sulfate / D5w) 1 gm in 100 mls @ 100 mls/hr IV Q1H JOANN Stop: 11/03/19 14:44 Last Infusion: 11/03/19 15:10 Dose: 0 mls/hr Documented by: [id number] Admin: 11/03/19 13:51 Dose: 100 mls/hr Documented by: [id number] Infusion: 11/03/19 13:51 Dose: 0 mls/hr Documented by: [id number] Admin: 11/03/19 12:50 Dose: 100 mls/hr Documented by: [id number] Lorazepam (Ativan) 0.5 mg in 1 mls @ 1 mls/min IV NOW STA Stop: 11/03/19 13:52 Last Admin: 11/03/19 14:07 Dose: 1 mls/min Documented by: [id number] Levetiracetam 1,500 mg/ Sodium (Chloride) 115 mls @ 440 mls/hr IV NOW STA Stop: 11/03/19 15:12 Last Infusion: 11/03/19 16:01 Dose: 0 mls/hr Documented by: [id number] Admin: 11/03/19 15:39 Dose: 440 mls/hr Documented by: [id number] Acetaminophen (Ofirmev) 1,000 mg in 100 mls @ 400 mls/hr IV NOW STA Stop: 11/03/19 15:12 Last Infusion: 11/03/19 15:40 Dose: 0 mls/hr Documented by: [id number] Admin: 11/03/19 15:17 Dose: 400 mls/hr Documented by: [id number] Dexamethasone Sodium Phosphate (10 mg/ Syringe) 2.5 mls @ 1 mls/min IV NOW STA Stop: 11/03/19 15:00 Last Admin: 11/03/19 15:17 Dose: Not Given Documented by: [id number] Prochlorperazine 2.5 mg/ (Syringe) 4.5 mls @ 5 mls/min IV NOW STA Stop: 11/03/19 17:55 Last Admin: 11/03/19 22:18 Dose: Not Given Documented by: [id number] Lorazepam (Ativan) 1 mg in 2 mls @ 2 mls/min IV NOW STA Stop: 11/03/19 18:43 Last Admin: 11/03/19 18:51 Dose: 2 mls/min Documented by: [id number] Magnesium Sulfate/Dextrose (Magnesium Sulfate / D5w) 1 gm in 100 mls @ 100 mls/hr IV Q1H JOANN Stop: 11/03/19 23:59 Last Infusion: 11/04/19 02:47 Dose: 0 mls/hr Documented by: [id number] Admin: 11/04/19 01:43 Dose: 100 mls/hr Documented by: [id number] Infusion: 11/04/19 00:46 Dose: 0 mls/hr Documented by: [id number] Infusion: 11/03/19 23:00 Dose: 100 mls/hr Documented by: [id number] Infusion: 11/03/19 22:53 Dose: 0 mls/hr Documented by: [id number] Admin: 11/03/19 22:17 Dose: 100 mls/hr Documented by: [id number] Magnesium Sulfate/Dextrose (Magnesium Sulfate / D5w) 1 gm in 100 mls @ 100 mls/hr IV Q1H JOANN Stop: 11/04/19 02:22 Last Infusion: 11/04/19 09:32 Dose: 0 mls/hr Documented by: [id number] Admin: 11/04/19 08:23 Dose: 100 mls/hr Documented by: [id number] Infusion: 11/04/19 08:23 Dose: 0 mls/hr Documented by: [id number] Admin: 11/04/19 07:13 Dose: 100 mls/hr Documented by: [id number] Infusion: 11/04/19 04:36 Dose: 100 mls/hr Documented by: [id number] Admin: 11/04/19 03:36 Dose: 100 mls/hr Documented by: [id number] Infusion: 11/04/19 03:36 Dose: 100 mls/hr Documented by: [id number] Admin: 11/04/19 02:46 Dose: 100 mls/hr Documented by: [id number] Potassium Chloride/Sodium Chloride (Normal Saline W/20 Meq Kcl) 20 meq in 1,000 mls @ 100 mls/hr IV .Q10H JOANN Stop: 12/03/19 23:41 Last Infusion: 11/04/19 08:44 Dose: 0 mls/hr Documented by: [id number] Admin: 11/04/19 00:52 Dose: 100 mls/hr Documented by: [id number] Levetiracetam 500 mg/ Sodium (Chloride) 105 mls @ 420 mls/hr IV Q12H [facility] Stop: 12/04/19 03:29 Last Infusion: 11/04/19 05:45 Dose: 0 mls/hr Documented by: [id number] Admin: 11/04/19 05:04 Dose: 420 mls/hr Documented by: [id number] Dexamethasone Sodium Phosphate (4 mg/ Syringe) 1 mls @ 1 mls/min IV Q6H [facility] Stop: 12/04/19 03:59 Last Admin: 11/04/19 05:05 Dose: 1 mls/min Documented by: [id number] Famotidine 20 mg/ Syringe 5 mls @ 2.5 mls/min IV Q12H [facility] Stop: 12/04/19 03:59 Last Admin: 11/04/19 05:05 Dose: 2.5 mls/min Documented by: [id number] Insulin Human Regular 5 units/ (Syringe) 5 mls @ 30 mls/min IV 1200 ONE Stop: 11/04/19 12:01 Last Admin: 11/04/19 12:25 Dose: 30 mls/min Documented by: [id number] Cosigned by: [id number] Calcium Gluconate 1,000 mg/ (Sodium Chloride) 60 mls @ 240 mls/hr IV 1430 JOANN Stop: 11/04/19 14:44 Last Infusion: 11/04/19 14:54 Dose: 0 mls/hr Documented by: [id number] Admin: 11/04/19 14:35 Dose: 240 mls/hr Documented by: [id number] Insulin Human Regular 250 (units/ Sodium Chloride) 250 mls @ 1.7 mls/hr IV .Q24H JOANN; Protocol Stop: 12/04/19 17:29 Last Titration: 11/04/19 22:10 Dose: 0 units/hr, 0 mls/hr Documented by: [id number] Cosigned by: [id number] Titration: 11/04/19 21:12 Dose: 1.7 units/hr, 1.7 mls/hr Documented by: [id number] Cosigned by: [id number] Titration: 11/04/19 20:39 Dose: 0 units/hr, 0 mls/hr Documented by: [id number] Cosigned by: [id number] Titration: 11/04/19 19:34 Dose: 2.9 units/hr, 2.9 mls/hr Documented by: [id number] Cosigned by: [id number] Titration: 11/04/19 19:11 Dose: 3.6 units/hr, 3.6 mls/hr Documented by: [id number] Cosigned by: [id number] Titration: 11/04/19 18:34 Dose: 3.6 units/hr, 3.6 mls/hr Documented by: [id number] Cosigned by: [id number] Admin: 11/04/19 18:23 Dose: 3 units/hr, 3 mls/hr Documented by: [id number] Cosigned by: [id number] Insulin Human Regular 3 units/ (Syringe) 3 mls @ 0 mls/min IV TODAY@1745 ONE Stop: 11/04/19 17:46 Last Admin: 11/04/19 18:12 Dose: 3 mls/min Documented by: [id number] Cosigned by: [id number] Sodium Chloride (Nss) 500 mls @ 100 mls/hr IV .Q5H JOANN Stop: 11/05/19 13:29 Last Infusion: 11/05/19 14:28 Dose: 0 mls/hr Documented by: [id number] Admin: 11/05/19 08:55 Dose: 100 mls/hr Documented by: [id number] Calcium Gluconate 1,000 mg/ (Sodium Chloride) 60 mls @ 240 mls/hr IV TODAY@0845 ONE Stop: 11/05/19 08:59 Last Infusion: 11/05/19 09:48 Dose: 0 mls/hr Documented by: [id number] Admin: 11/05/19 08:55 Dose: 240 mls/hr Documented by: [id number] Calcium Gluconate 1,000 mg/ (Sodium Chloride) 60 mls @ 240 mls/hr IV TODAY@1430 ONE Stop: 11/05/19 14:44 Last Infusion: 11/05/19 15:21 Dose: 0 mls/hr Documented by: [id number] Admin: 11/05/19 15:00 Dose: 240 mls/hr Documented by: [id number] Insulin Aspart (Novolog Flexpen) 0 units SC Q6 JOANN Stop: 12/04/19 00:00 Last Admin: 11/04/19 05:50 Dose: 6 units Documented by: [id number] Cosigned by: [id number] Admin: 11/04/19 00:52 Dose: 5 units Documented by: [id number] Cosigned by: [id number] Insulin Aspart (Novolog Flexpen) 0 units SC [facility] Stop: 12/04/19 11:29 Last Admin: 11/04/19 11:41 Dose: Not Given Documented by: [id number] Cosigned by: [id number] Insulin Aspart (Novolog Flexpen) 0 units SC [facility] Stop: 12/04/19 11:29 Last Admin: 11/04/19 19:16 Dose: Not Given Documented by: [id number] Cosigned by: [id number] Insulin Aspart (Novolog Flexpen) 0 units SC [facility] Stop: 12/04/19 20:59 Last Admin: 11/04/19 20:47 Dose: Not Given Documented by: [id number] Cosigned by: [id number] Insulin Aspart (Novolog Flexpen) 0 units SC [facility] Stop: 12/05/19 07:29 Last Admin: 11/05/19 12:09 Dose: Not Given Documented by: [id number] Cosigned by: [id number] Admin: 11/05/19 09:05 Dose: 7 units Documented by: [id number] Cosigned by: [id number] Insulin Aspart (Novolog Flexpen) 0 units SC 0000,0400 [facility] Stop: 11/05/19 04:01 Last Admin: 11/05/19 03:45 Dose: Not Given Documented by: [id number] Cosigned by: [id number] Admin: 11/04/19 23:48 Dose: Not Given Documented by: [id number] Cosigned by: [id number] Insulin Glargine (Lantus Per Unit) 8 units SQ ONE ONE Stop: 11/04/19 09:46 Last Admin: 11/04/19 10:08 Dose: 8 units Documented by: [id number] Cosigned by: [id number] Insulin Glargine (Lantus Solostar Pen) 15 units SC TODAY@1800 [facility] Stop: 11/04/19 18:01 Last Admin: 11/04/19 18:00 Dose: 15 units Documented by: [id number] Cosigned by: [id number] Insulin Glargine (Lantus Solostar Pen) 20 units SC ONE ONE Stop: 11/05/19 08:46 Last Admin: 11/05/19 09:05 Dose: 20 units Documented by: [id number] Cosigned by: [id number] Levetiracetam (Keppra) 500 mg PO BID [facility] Stop: 12/04/19 08:59 Last Admin: 11/05/19 08:54 Dose: 500 mg Documented by: [id number] Admin: 11/04/19 20:44 Dose: 500 mg Documented by: [id number] Admin: 11/04/19 08:59 Dose: 500 mg Documented by: [id number] Lorazepam (Ativan) Confirm Administered Dose 2 mg .ROUTE .STK-MED ONE Stop: 11/03/19 18:44 Last Admin: 11/03/19 22:17 Dose: Not Given Documented by: [id number] Metoclopramide HCl (Reglan) Confirm Administered Dose 10 mg .ROUTE .STK-MED ONE Stop: 11/03/19 18:01 Last Admin: 11/03/19 18:01 Dose: Not Given Documented by: [id number] Metoprolol Su[facility]l) [facility] [place] Stop: 12/05/19 08:59 Last Admin: 11/05/19 08:54 Dose: 100 mg Documented by: [id number] Metoprolol Tartrate (Lopressor) 25 mg PO BID [facility] Stop: 11/04/19 22:00 Last Admin: 11/04/19 20:43 Dose: 25 mg Documented by: [id number] Admin: 11/04/19 11:20 Dose: 25 mg Documented by: [id number] Miscellaneous (Carbohydrates For Hypoglycemia) 15 - 30 gm PO UD PRN PRN Reason: Hypoglycemia Protocol Stop: 12/03/19 23:41 Last Admin: 11/05/19 11:41 Dose: 15 gm Documented by: [id number] Potassium Chloride (Klor-Con M20) 20 meq PO NOW STA Stop: 11/05/19 08:29 Last Admin: 11/05/19 08:55 Dose: 20 meq Documented by: [id number] Tamsulosin HCl (Flomax) [facility] [place] Stop: 12/04/19 10:29 Last Admin: 11/05/19 08:54 Dose: 0.4 mg Documented by: [id number] Admin: 11/04/19 11:20 Dose: 0.4 mg Documented by: [id number] Vitamin D (Vitamin D3) 1,000 units PO QAM [facility] Stop: 04/23/20 10:29 Last Admin: 11/05/19 08:54 Dose: 1,000 units Documented by: [id number] Admin: 11/04/19 11:20 Dose: 1,000 units Documented by: [id number] Blood Pressure Blood Pressure Findings: Elevated blood pressure Blood Pressure Disposition: elevated BP felt to be situational Discharge Plan Visit Data *Final* Discharge Date/Time: 11/03/19 22:51 Chief Complaint: Weakness ED Provider: Vasu Cnuningham Discharge Problem: Seizure, Dehydration, Hypomagnesemia, History of subarachnoid hemorrhage, History of intraventricular hemorrhage, CKD (chronic kidney disease), Cardiac pacemaker in situ, Generalized weakness Patient Disposition: Admitted As Inpatient Condition: Fair Discharge Instructions Interventions: ED Discharge Assessment Last Done: 11/03/19 22:51
--- NOTE | 2019-11-03 12:02 | CT Scan Report ---
CT SCAN OF THE BRAIN WITHOUT IV CONTRAST CLINICAL HISTORY: Generalized weakness. Recent hemorrhage. COMPARISON STUDY: CT of the brain dated 10/09/2019. TECHNIQUE: Unenhanced axial CT scan of the brain is performed from the vertex to the skull base. A do se lowering technique was utilized adhering to the principles of ALARA. CT DOSE: 729.78 mGycm FINDINGS: Brain parenchyma: There are age-related involutional changes noting mild to moderate patchy subcorti heidi and periventricular microangiopathic change. There is no parenchymal hematoma, mass effect, or ev idence of acute territorial ischemia by CT criteria. Calhoun-white matter differentiation is preserved. A small chronic lacunar infarct is noted in the right cerebellar hemisphere. No extra-axial fluid col lection is seen. Ventricles, sulci, cisterns: Prominent secondary to involutional change. There is trace blood within the posterior horn of the right lateral ventricle (axial image #17). Intracranial vasculature: There is atherosclerotic calcification of the cavernous carotid and vertebr al arteries. Calvarium: Unremarkable. Soft tissues: A calcified sialolith is noted in the left parotid gland. Sinuses and mastoids: The visualized paranasal sinuses are clear. The mastoid air cells are well pneu matized. Orbits: The bony orbits are grossly intact. IMPRESSION: 1. The majority of the hemorrhage seen on the 10/09/2019 examination has resolved. 2. There is trace recurrent or residual intraventricular blood within the posterior horn of the right lateral ventricle. 3. There is no parenchymal hematoma, midline shift, or evidence of acute territorial ischemia by CT odin be. ACT 112: Negative or not required by law. Electronically signed by: Antonio Webster M.D. 11/03/2019 12:00 PM
--- NOTE | 2019-11-03 12:21 | XRay Report ---
XR chest 1V portable CLINICAL HISTORY: 84 years-old Male presenting with Chest Pain. TECHNIQUE: Portable upright AP view of the chest was obtained. COMPARISON: 08/18/2016. FINDINGS: Left subclavian pacer with single lead to the right ventricular apex. Atherosclerosis of the aortic a rch. Cardiac silhouette mildly enlarged. Mild pulmonary vascular prominence. No focal opacity. No lar ge effusion or pneumothorax. Degenerative changes of the thoracic spine. Degenerative changes of the left glenohumeral joint. Upper abdomen normal. IMPRESSION: 1. Cardiomegaly with mild volume overload. No advanced congestive change or david pulmonary edema. ACT 112: Negative or not required by law. Electronically signed by: Albaro Alvarez M.D. 11/03/2019 12:20 PM
[2019-11-03 12:27] LABS: Albumin Globulin Ratio 0.9 (0.9-2); Albumin Level 3.7 gm/dl (3.4-5.0); BUN Creatinine Ratio 15.6 (10-20); Bilirubin,Total 1.6 mg/dl (0.2-1); Calcium 6.9 mg/dl (8.5-10.1); Creatinine Clr Calc Pharmacy 38.5 ml/min; Est GFR (Non-African American) 40.5; Magnesium 0.4 mg/dl (1.8-2.4); Phosphorus 4.3 mg/dl (2.5-4.9); Potassium 3.9 mmol/L (3.5-5.1); Thyroid Stimulating Hormone 2.19 uIu/ml (0.300-4.500); Total Protein 7.7 gm/dl (6.4-8.2); Troponin I 0.025 ng/ml (0-0.045)
[2019-11-03 12:28] LABS: INR 1.4 (0.9-1.1); Partial Thromboplastin Ratio 1.1; Partial Thromboplastin Time 29.4 Seconds (21.0-31.0); Prothrombin Time 14.6 Seconds (9.0-12.0)
[2019-11-03] MEDS: MAGNESIUM SULFATE / D5W 1 GM/100 ML BAG IV SCH ×3 (12:50→22:17)
[2019-11-03] MEDS ORDERED: LORazepam 0.5 MG/1 ML VIAL IV STA (13:51)
[2019-11-03] MEDS ORDERED: levETIRAcetam 1,500 MG in 0.9 % SODIUM CHLORIDE 100 ML IV STA (14:58)
[2019-11-03] MEDS ORDERED: ACETAMINOPHEN 1,000 MG/100 ML VIAL IV STA (14:58)
[2019-11-03] MEDS ORDERED: DEXAMETHASONE SOD PHOSPHATE 10 MG in SYRINGE 0 ML IV STA (14:58)
[2019-11-03] MEDS ORDERED: DEXAMETHASONE **PF** INJ 10 MG/ML VIAL ONE (15:11)
--- NOTE | 2019-11-03 16:28 | Electrocardiogram Report ---
Test Reason : Blood Pressure : / mmHG Vent. Rate : 118 BPM Atrial Rate : 060 BPM P-R Int : 136 ms QRS Dur : 080 ms QT Int : 376 ms P-R-T Axes : 089 -51 071 degrees QTc Int : 527 ms Poor data quality, interpretation may be adversely affected Probably atrial fibrillation with aberrant conduction Left axis deviation Low voltage QRS Inferior infarct (cited on or before 12-FEB-2007) Anterolateral infarct (cited on or before 12-FEB-2007) Prolonged QT Abnormal ECG When compared with ECG of 09-OCT-2019 14:37, Nonspecific T wave abnormality no longer evident in Inferior leads Confirmed by Joseph Ag ([id number]) on 11/03/2019 4:27:47 PM Referred By: REFERRED SELF Confirmed By:Grant Ag
[2019-11-03] MEDS ORDERED: PROCHLORPERAZINE 2.5 MG in SYRINGE 4 ML IV STA (17:54)
[2019-11-03] MEDS ORDERED: METOCLOPRAMIDE HCL INJ 5 MG/ML 2 ML VIAL ONE (18:00)
--- NOTE | 2019-11-03 18:27 | Emergency Department Note ---
ED Visit Note 1824: Signout from Dr. hughes. 84-year-old male with history of A. fib, CKD, recent subarachnoid hemorrhage and stroke who was treated at [facility] presented with weakness. CT of the head showed trace recurrent or residual intraventricular blood in the majority of the hemorrhage from October 09 had resolved. Patient's magnesium was 0.4 in the emergency department. Patient had one seizure in the emergency department. Dr. hughes treated the patient with Keppra 1 g IV piggyback and load the patient with magnesium sulfate [address] hughes spoke with neurology Dr. King who stated the patient could have a spot EEG but it would be "unlikely to change the plan" he recommended repeat MRI. Patient was to be admitted to [facility] hospitalist team at 1458. Currently [place] hospitalist team Brent Sotelo and attending Zonia Rhodes is stating that they want the results of an MRI before they agreed to admit the patient because they are afraid that there could be new findings of new blood and if so they would not feel comfortable admitting the patient. MRI is pending. Follow-up MRI and MRA to decide if not any hospitalist team will admit the patient. Patient is an MRI at this time. 1899: Patient still an MRI. 2152: MRI and MRA of the brain negative. MRA of the neck showed possible artifact versus dissection. I discussed these findings with the family at bedside. I directly asked him if they are requesting/demanding transfer to [facility] and they stated no as long as the brain bleed has improved or stayed constant they do not wish to be transferred to [facility] and are okay being admitted to [facility]. We will plan on admitting the patient to [facility]. I discussed this with the nighttime hospitalist Dr. Hurst who agreed to the admission.Dr. Hurst discussed with the patient's family and they state he is DNR/DNI. Dr. Hurst requested the repeat labs to be done. Patient's repeat magnesium was 1.0. We will give an additional 2 g of magnesium. It is thought that his seizure was due to the hypomagnesemia. .
[2019-11-03] MEDS ORDERED: LORazepam 1 MG/2 ML VIAL IV STA (18:42)
[2019-11-03] MEDS ORDERED: LORazepam 2 MG/4 ML VIAL ONE (18:43)
--- NOTE | 2019-11-03 19:18 | Magnetic Resonance Report ---
MR angio head wo con HISTORY: Seizures sz activity, SAH/cva 3wks ago TECHNIQUE: 3-D [id number] MRA of the brain was performed without contrast. COMPARISON STUDY: None. FINDINGS: Visualized intracranial internal carotid arteries, distal vertebral arteries, and basilar a rtery are patent. There is no significant stenosis, occlusion, or aneurysm seen within the bilateral ACAs, MCAs, or supervisor line department. There are findings of moderate multifocal narrowing of the peripheral vasculatur e. Components of this are age-related. IMPRESSION: 1. The major central vasculature shows no significant stenosis or aneurysm formation. 2. The extreme peripheral vasculature of both cerebral hemispheres demonstrates moderate arterial occ lusive change. ACT 112: Negative or not required by law. The above report was generated using voice recognition software. It may contain grammatical, syntax or spelling errors. Electronically signed by: Brandt Vogel M.D. 11/03/2019 7:16 PM
[2019-11-03] MEDS ORDERED: GADOBUTROL 65ML VIAL IV PRN (19:43)
--- NOTE | 2019-11-03 19:53 | Magnetic Resonance Report ---
MR brain wo/w con CLINICAL HISTORY: seizures, eval residual IVH, ?new cva COMPARISON STUDY: No prior MRIs. These have been performed at an outside institution. TECHNIQUE: Utilizing a 1.5 Gisela magnet and dedicated coil, multiplanar, multiecho imaging of the br ain was performed pre and postcontrast administration. IV administration of 8 mL of Gadavist contras t was uneventful. FINDINGS: Diffusion images show no evidence for an acute ischemic event. Ventricular system is midlin e. Obtained images demonstrate essentially resolution of previously described hemorrhage. There potentia lly is a trace amount of blood within the right lateral ventricle although this is not well seen on M RI is better appreciated on CT finding. The MRI of the brain does not suggest a significant interval change. The there are components of chromosomal disorders counselor tyson small vessel change. There is a small old right peripheral cerebellar infarct. There is chronic s mall vessel change of the pontine medullary region. Ventricular system is midline. IMPRESSION: No additional information compared to this prior CT evaluation of the brain. No evidence for an acute ischemic event. The ventricular blood previously described on CT isn't not well seen on MRI ACT 112: Negative or not required by law. The above report was generated using voice recognition software. It may contain grammatical, syntax or spelling errors. Electronically signed by: Brandt Vogel M.D. 11/03/2019 7:52 PM
--- NOTE | 2019-11-03 20:31 | Magnetic Resonance Report ---
MR angio neck wo/w con HISTORY: Status change sz activity, SAH/cva 3wks ago TECHNIQUE: Multiaxial CT angiography of the neck was performed IV contrast: None. All measurements w ere calculated based on NASCET criteria. Maximum intensity projection images were also obtained. A dose lowering technique was utilized adhering to the principles of ALARA. COMPARISON STUDY: CT angiogram of the neck 10/09/2019 FINDINGS: This examination is severely compromised due to patient motion.. Patient now potentially de monstrates a a 1.2 cm length of the the proximal right internal carotid artery which may be secondary to motion artifact, thrombus, with both findings potentially associated with a small dissection. CTA of the neck renal arteries is again suggested. There continues to be components of vascular atherosclerotic change of the left carotid system. It do es not appear to be a significant left-sided stenotic process. Vertebral basilar system appears to be unremarkable. IMPRESSION: 1. Very limited/near nondiagnostic study due to patient motion. 2. Plaque formation is seen involving the left carotid system but there is no significant left-sided stenosis. 3. Artifact versus potential thrombus and associated small dissection of the proximal right internal carotid artery. The 2 cannot be adequately differentiated by this MRI. A repeat CTA of the neck carot id vasculature is suggested. ACT 112: Negative or not required by law. The above report was generated using voice recognition software. It may contain grammatical, syntax or spelling errors. Electronically signed by: Brandt Vogel M.D. 11/03/2019 8:30 PM
[2019-11-03 21:08] LABS: Basophils # (auto) 0.01 K/uL (0-0.2); Basophils % (auto) 0.1 %; Eosinophils # (auto) 0.01 K/uL (0-0.5); Eosinophils % (auto) 0.1 %; Hematocrit (blood only) 33.9 % (42-52); Hemoglobin 11.1 g/dL (14.0-18.0); Immature Granulocytes # (auto) 0.04 K/uL (0.00-0.02); Immature Granulocytes % (auto) 0.5 %; Lymphocytes # (auto) 0.46 K/uL (1.2-3.4); Lymphocytes % (auto) 6.2 %; Mean Corpuscular Hgb Conc 32.7 g/dL (32-36); Mean Corpuscular Volume 88.5 fL (80-100); Monocytes % (auto) 1.3 %; Neutrophils # (auto) 6.85 K/uL (1.4-6.5); Neutrophils % (auto) 91.8 %; Platelet Count 187 K/uL (130-400); RDW Coefficient of Variation 15.3 % (11.5-14.5); RDW Standard Deviation 49.1 fL (36.4-46.3); Red Blood Count 3.83 M/uL (4.7-6.1); White Blood Count 7.47 K/uL (4.8-10.8)
[2019-11-03 21:47] LABS: Albumin Level 3.4 gm/dl (3.4-5.0); Bilirubin,Total 1.2 mg/dl (0.2-1); Calcium 6.8 mg/dl (8.5-10.1); Est GFR (African American) 62.9; Est GFR (Non-African American) 54.3; Potassium 3.5 mmol/L (3.5-5.1)
[2019-11-03 21:48] LABS: Albumin Globulin Ratio 0.9 (0.9-2); BUN Creatinine Ratio 18.6 (10-20); Globulin 3.8 gm/dl (2.5-4.0); Total Protein 7.2 gm/dl (6.4-8.2)
[2019-11-03] MEDS ORDERED: NSS + 20MEQ KCL 20 MEQ/1,000 ML BAG IV SCH (23:42)
[2019-11-03] MEDS ORDERED: DEXTROSE 50% 50 ML SYRINGE IV PRN (23:42)
[2019-11-03] MEDS ORDERED: ONDANSETRON INJ 2 MG/ML 2 ML VIAL IV PRN (23:42)
[2019-11-03] MEDS ORDERED: GLUCOSE 40% GEL 15 GM TUBE PO PRN (23:42)
[2019-11-03] MEDS ORDERED: CARBOHYDRATES FOR HYPOGLYCEMIA PO PRN (23:42)
[2019-11-03] MEDS ORDERED: GLUCOSE 10 TABS/TUBE PO PRN (23:42)
[2019-11-03] MEDS ORDERED: GLUCAGON FOR INJ 1 MG VIAL SQ PRN (23:42)
[2019-11-04 00:11] LABS: Appearance Urine Clear (Clear); Bilirubin Urine Negative (Negative); Blood Urine 1+ (Negative); Color Urine Yellow; Glucose Urine UA Negative (Negative); Ketones Urine Negative (Negative); Leukocyte Esterase Urine 2+ (Negative); Nitrite Urine Negative (Negative); Protein Urine Trace (Negative); Urobilinogen Urine Negative (Negative)
[2019-11-04 00:22] LABS: Bacteria Urine 1+ (Negative); Epithelial Cell Urine 0-5 /lpf (0-5); RBC Urine 0-4 /hpf (0-4); WBC Urine >30 /hpf (0-5)
[2019-11-04] MEDS: INSULIN ASPART 100 UNITS/ML 3 ML PEN SC SCH ×3 (00:52→23:48)
[2019-11-04] MEDS: MAGNESIUM SULFATE / D5W 1 GM/100 ML BAG IV SCH ×6 (01:43→08:23)
--- NOTE | 2019-11-04 02:42 | History & Physical Report ---
Date of Service November 04, 2019 The patient was seen and examined on November 03, 2019 Assessment & Plan (1) Seizure: Single episode reported by family at home. Patient was in the emergency department over 11 hours, without any additional activity. He did receive a single loading dose of Keppra 1500 mg IV, and will continue at 500 mg IV every 12 hours. He did also receive a single loading dose of Decadron 10 mg IV, which will be continued at 4 mg IV every 6 hours Seizure precautions. Consult neurology. Patient is a DNR/DNI per discussion with significant other Present on Admission?: Yes (2) Dehydration: Continue IV fluid rehydration Present on Admission?: Yes (3) Hypomagnesemia: Magnesium level was 0.4 upon admission. He received 2 g magnesium sulfate IV by the ED. He will receive an additional 4 g IV, and then have follow-up laboratories in the a.m. Present on Admission?: Yes (4) History of subarachnoid hemorrhage: Imaging today does not demonstrate any additional bleeding. Present on Admission?: Yes (5) History of intraventricular hemorrhage: Small amount of residual hematoma noted on CT. Present on Admission?: Yes (6) CKD (chronic kidney disease): Creatinine upon admission 1.54, with follow-up after hydration 1.21, with previous range 1.37-2.00. Continue to follow serial laboratories Present on Admission?: Yes (7) Cardiac pacemaker in situ: Target potassium 4 and magnesium 2. Present on Admission?: Yes (8) Atrial fibrillation: Anticoagulation on hold due to previous subarachnoid and intraventricular hemorrhage Present on Admission?: Yes (9) GERD (gastroesophageal reflux disease): Hold p.o. Nexium. Famotidine 20 mg IV every 12 hours Present on Admission?: Yes (10) Carotid artery stenosis: MRA of neck was limited, and suggestion from radiology was to possibly consider repeat CTA. Per patient significant other, he would not want any more aggressive therapy done, and would be a poor interventional risk. We will hold on any further imaging, can be reassessed in the a.m. Present on Admission?: Yes (11) Diabetes mellitus, type II: N.p.o. Placed on Accu-Cheks before meals and at bedtime/every 6 hours with NovoLog coverage per scale. Present on Admission?: Yes History of Present Illness Chief Complaint: The patient was brought to the emergency department due to generalized weakness, intermittent confusion, and today developed seizure like activity. Primary Care Provider: Garcia Simms DO The patient is an 84-year-old male with a past medical history including recent subarachnoid hemorrhage, and intraventricular hemorrhage, CKD stage III, cardiac pacemaker in situ, atrial fibrillation previously on Xarelto, diabetes mellitus type 2, carotid artery stenosis, GERD, ischemic cardiomyopathy, hypertension, hyperlipidemia, sick sinus syndrome and coronary artery disease. He has been seen at [facility] for subarachnoid hemorrhage, his route had been stopped, and after a stay at [place], he was transferred to [facility] rehab, and then returned home on 10/27. His work-up in the ED today, initially consisted of appropriate laboratories, and CT scan of brain without IV contrast, which reported the majority of the hemorrhage seen on 10/09/2019 had been resolved. There was trace recurrent or residual intraventricular blood within the posterior horn of the right lateral ventricle. There was no parenchymal hematoma, midline shift, or evidence of acute territorial ischemia by CT criteria. His case was discussed by the ED with stroke neurology at [place], who suggested the patient get an MRI of the brain. Brain MRI showed no additional information compared to the prior CT evaluation of the brain. there was no evidence for an acute ischemic event. There were the ventricular blood seen previously described on CT was not well seen on MRI. The MRA of the head without contrast showed the major central vasculature with no significant stenosis or aneurysm formation. The extreme peripheral vasculature of both cerebral hemispheres demonstrates moderate arterial occlusive change. MRA of the neck with and without contrast was very limited/near nondiagnostic due to patient motion. Plaque formation seen involving the left carotid system but there was no significant left-sided stenosis. Artifact versus potential thrombus and associated small dissection of the proximal right ICA. The 2 cannot be adequately differentiated by this MRI. A repeat CTA of the neck carotid vasculature is suggested. Discussion with the patient's significant other reports that the patient is a DNR/DNI, and would not want any other significant intervention done. The patient will therefore be admitted to telemetry for further observation. Allergies Allergy/AdvReac Type Severity Reaction Status Date / Time No Known Drug Allergies Allergy Verified 11/03/19 11:16 Home Medications Home Medications Medication Instructions Recorded Confirmed Type aspirin 81 mg tablet,delayed 81 mg PO QAM 06/15/19 11/03/19 History release nitroglycerin 0.4 mg sublingual 0.4 mg SL Q5M PRN tab 06/30/19 11/03/19 History tablet amlodipine 10 mg tablet 10 mg PO QAM 10/22/19 11/03/19 History bisacodyl 10 mg rectal suppository 10 mg UT DAILY PRN 10/22/19 11/03/19 History cholecalciferol (vitamin D3) 25 1,000 units PO QAM cap 10/22/19 11/03/19 History mcg (1,000 unit) capsule cyanocobalamin (vitamin B-12) 1,000 mcg PO QAM cap 10/22/19 11/03/19 History 1,000 mcg capsule docusate sodium 100 mg capsule 100 mg PO BID 10/22/19 11/03/19 History glucagon HCl 1 mg solution for 1 mg SQ Q20M PRN 10/22/19 11/03/19 History injection metformin 500 mg tablet 500 mg PO BIDM 10/22/19 11/03/19 History metoprolol tartrate 25 mg tablet 25 mg PO BID 10/22/19 11/03/19 History polyethylene glycol 3350 17 17 gm PO DAILY PRN 10/22/19 11/03/19 History gram/dose oral powder tamsulosin 0.4 mg capsule 0.4 mg PO QAM 10/22/19 11/03/19 History esomeprazole magnesium 40 mg 40 mg PO QAM 10/29/19 11/03/19 History capsule,delayed release furosemide 40 mg tablet 40 mg PO QAM 10/29/19 11/03/19 History acetaminophen [Tylenol] 325 mg PO QID PRN 11/03/19 11/03/19 History atorvastatin 40 mg PO HS 11/03/19 11/03/19 History finasteride 5 mg PO QAM 11/03/19 11/03/19 History Past Med/Surg History Medical History Actinic keratosis Bradycardia Diverticulosis Inhibited sexual desire Knee pain Lyme disease Paronychia Sick sinus syndrome Tick bite Upper respiratory infection Surgical History S/P cardiac catheterization Family History Father Myocardial infarction Daughter Breast cancer Brother Coronary heart disease Diabetes Melanoma of skin Mother Lung cancer Social History Preferred Language: Tunisian Communication Ability: Effective Visual Impairment: No Limitations Hearing Ability: Normal 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 HEENT--PERRL, EOMI, mucous membranes and oropharynx dry. Neck--supple. No JVD. No bruits. Thyroid normal, trachea midline, no adenopathy. Heart--normal S1 and S2. No murmurs, rubs or gallops. Lungs--clear bilaterally, no respiratory distress, no accessory muscle use. Abdomen--normal bowel sounds and soft. Nontender. Nondistended. Extremities--no cyanosis or clubbing. No edema. Dermatologic--normal skin turgor, normal color, no abnormal lymph nodes, no rash. Neurologic--limited exam Rheumatologic--limited exam Psychiatric--obtunded Results & Data Vital Signs (Past 12 Hours) Vital Signs Temp Pulse Resp BP Pulse Ox 11/03/19 23:00 97.5 F L 98 H 18 150/74 H 92 11/03/19 22:36 83 22 138/81 93 11/03/19 21:18 83 16 112/67 99 11/03/19 20:30 70 20 118/68 95 11/03/19 19:54 88 19 145/76 H 95 11/03/19 17:44 70 16 140/73 97 11/03/19 15:30 88 25 H 136/62 94 Laboratory Results Laboratory Results WBC 7.47 K/uL (4.8-10.8) 11/03/19 20:59 RBC 3.83 M/uL (4.7-6.1) L 11/03/19 20:59 Hgb 11.1 g/dL (14.0-18.0) L 11/03/19 20:59 Hct 33.9 % (42-52) L 11/03/19 20:59 MCV 88.5 fL (80-100) 11/03/19 20:59 MCH 29.0 pg (25-34) 11/03/19 20:59 MCHC 32.7 g/dL (32-36) 11/03/19 20:59 RDW Std Deviation 49.1 fL (36.4-46.3) H 11/03/19 20:59 RDW Coeff of Crispin 15.3 % (11.5-14.5) H 11/03/19 20:59 Plt Count 187 K/uL (130-400) 11/03/19 20:59 MPV 9.0 fL (7.4-10.4) 11/03/19 20:59 Immature Gran % (Auto) 0.5 % 11/03/19 20:59 Neut % (Auto) 91.8 % 11/03/19 20:59 Lymph % (Auto) 6.2 % 11/03/19 20:59 Sevier % (Auto) 1.3 % 11/03/19 20:59 Eos % (Auto) 0.1 % 11/03/19 20:59 Baso % (Auto) 0.1 % 11/03/19 20:59 Immature Gran # (Auto) 0.04 K/uL (0.00-0.02) H 11/03/19 20:59 Neut # (Auto) 6.85 K/uL (1.4-6.5) H 11/03/19 20:59 Lymph # (Auto) 0.46 K/uL (1.2-3.4) L 11/03/19 20:59 Sevier # (Auto) 0.10 K/uL (0.11-0.59) L 11/03/19 20:59 Eos # (Auto) 0.01 K/uL (0-0.5) 11/03/19 20:59 Baso # (Auto) 0.01 K/uL (0-0.2) 11/03/19 20:59 PT 14.6 Seconds (9.0-12.0) H 11/03/19 11:30 INR 1.4 (0.9-1.1) H 11/03/19 11:30 APTT 29.4 Seconds (21.0-31.0) 11/03/19 11:30 PTT Ratio 1.1 11/03/19 11:30 Sodium 137 mmol/L (136-145) 11/03/19 20:59 Potassium 3.5 mmol/L (3.5-5.1) 11/03/19 20:59 Chloride 99 mmol/L (98-107) 11/03/19 20:59 Carbon Dioxide 28 mmol/L (21-32) 11/03/19 20:59 Anion Gap 9.0 (3-11) 11/03/19 20:59 BUN 23 mg/dl (7-18) H 11/03/19 20:59 Creatinine 1.21 mg/dl (0.6-1.4) D 11/03/19 20:59 Est Cr Clr Drug Dosing 49.0 ml/min 11/03/19 20:59 Est GFR ( Amer) 62.9 11/03/19 20:59 Est GFR (Non-Af Amer) 54.3 11/03/19 20:59 BUN/Creatinine Ratio 18.6 (10-20) 11/03/19 20:59 Glucose 253 mg/dl (70-99) H 11/03/19 20:59 POC Glucose 275 mg/dl (70-99) H 11/03/19 23:58 Calcium 6.8 mg/dl (8.5-10.1) L 11/03/19 20:59 Phosphorus 4.3 mg/dl (2.5-4.9) 11/03/19 11:30 Magnesium 1.0 mg/dl (1.8-2.4) L 11/03/19 20:59 Total Bilirubin 1.2 mg/dl (0.2-1) H 11/03/19 20:59 AST 19 U/L (15-37) 11/03/19 20:59 ALT 18 U/L (12-78) 11/03/19 20:59 Alkaline Phosphatase 114 U/L (45-117) 11/03/19 20:59 Troponin I 0.025 ng/ml (0-0.045) 11/03/19 11:30 Total Protein 7.2 gm/dl (6.4-8.2) 11/03/19 20:59 Albumin 3.4 gm/dl (3.4-5.0) 11/03/19 20:59 Globulin 3.8 gm/dl (2.5-4.0) 11/03/19 20:59 Albumin/Globulin Ratio 0.9 (0.9-2) 11/03/19 20:59 Lipase 198 U/L (73-393) 11/03/19 11:30 TSH 2.190 uIu/ml (0.300-4.500) 11/03/19 11:30 Urine Color Yellow 11/03/19 23:45 Urine Appearance Clear (Clear) 11/03/19 23:45 Urine pH 5.0 (4.5-7.5) 11/03/19 23:45 Ur Specific Gilbert 1.020 (1.000-1.030) 11/03/19 23:45 Urine Protein Trace (Negative) H 11/03/19 23:45 Urine Glucose (UA) Negative (Negative) 11/03/19 23:45 Urine Ketones Negative (Negative) 11/03/19 23:45 Urine Blood 1+ (Negative) H 11/03/19 23:45 Urine Nitrite Negative (Negative) 11/03/19 23:45 Urine Bilirubin Negative (Negative) 11/03/19 23:45 Urine Urobilinogen Negative (Negative) 11/03/19 23:45 Ur Leukocyte Esterase 2+ (Negative) H 11/03/19 23:45 Urine RBC 0-4 /hpf (0-4) 11/03/19 23:45 Urine WBC >30 /hpf (0-5) H 11/03/19 23:45 Ur Epithelial Cells 0-5 /lpf (0-5) 11/03/19 23:45 Urine Bacteria 1+ (Negative) H 11/03/19 23:45 Diagnostic Findings [facility], [place] [phone] XRay Report Patient: CATERINA CARMEN Date: 11/03/19 MR#: [id number]: [address] Acct ID:[id number]: [facility] Zip: [facility] [place] [address] Age: 84Location: ED Sex: M Room/Bed: Att Phy:Diagnosis: WEAKNESS Prachi Phy: Garcia Simms, DOService Date: 11/03/19 Fam Phy:Interpreting Phy: Albaro Alvarez MD Admit Phy: Ordering Phy: Vasu Cunningham M.D. cc: ~ XR chest 1V portable CLINICAL HISTORY: 84 years-old Male presenting with Chest Pain. TECHNIQUE: Portable upright AP view of the chest was obtained. COMPARISON: 08/18/2016. FINDINGS: Left subclavian pacer with single lead to the right ventricular apex. Atherosclerosis of the aortic arch. Cardiac silhouette mildly enlarged. Mild pulmonary vascular prominence. No focal opacity. No large effusion or pneumothorax. Degenerative changes of the thoracic spine. Degenerative changes of the left glenohumeral joint. Upper abdomen normal. IMPRESSION: 1. Cardiomegaly with mild volume overload. No advanced congestive change or david pulmonary edema. ACT 112: Negative or not required by law. Electronically signed by: Albaro Alvarez M.D. 11/03/2019 12:20 PM Dictated: 11/03/19 1218 Transcribed: 11/03/19 1218 [place], [place] [phone] CT Scan Report Patient: CATERINA CARMEN Date: 11/03/19 MR#: [id number]: [address] Acct ID:[id number]: Date: [address] [place] [address] Zip: [place] [address] Age: 84Location: ED Sex: M Room/Bed: Att Phy:Diagnosis: WEAKNESS Prachi Phy: Garcia Simms, DOService Date: 11/03/19 Fam Phy:Interpreting Phy: Antonio Webster MD Admit Phy: Ordering Phy: Vasu Cunningham M.D. cc: ~ CT SCAN OF THE BRAIN WITHOUT IV CONTRAST CLINICAL HISTORY: Generalized weakness. Recent hemorrhage. COMPARISON STUDY: CT of the brain dated 10/09/2019. TECHNIQUE: Unenhanced axial CT scan of the brain is performed from the vertex to the skull base. A dose lowering technique was utilized adhering to the principles of ALARA. CT DOSE: 729.78 mGycm FINDINGS: Brain parenchyma: There are age-related involutional changes noting mild to moderate patchy subcortical and periventricular microangiopathic change. There is no parenchymal hematoma, mass effect, or evidence of acute territorial ischemia by CT criteria. Calhoun-white matter differentiation is preserved. A small chronic lacunar infarct is noted in the right cerebellar hemisphere. No extra- axial fluid collection is seen. Ventricles, sulci, cisterns: Prominent secondary to involutional change. There is trace blood within the posterior horn of the right lateral ventricle (axial image #17). Intracranial vasculature: There is atherosclerotic calcification of the cavernous carotid and vertebral arteries. Calvarium: Unremarkable. Soft tissues: A calcified sialolith is noted in the left parotid gland. Sinuses and mastoids: The visualized paranasal sinuses are clear. The mastoid air cells are well pneumatized. Orbits: The bony orbits are grossly intact. IMPRESSION: 1. The majority of the hemorrhage seen on the 10/09/2019 examination has resolved. 2. There is trace recurrent or residual intraventricular blood within the posterior horn of the right lateral ventricle. 3. There is no parenchymal hematoma, midline shift, or evidence of acute territorial ischemia by CT criteria. ACT 112: Negative or not required by law. Electronically signed by: Antonio Webster M.D. 11/03/2019 12:00 PM Dictated: 11/03/19 1154 Transcribed: 11/03/19 1154 [place], [place] [phone] Magnetic Resonance Report Patient: CATERINA CARMEN LAdmit Date: 11/03/19 MR#: [id number]: [address] Acct ID:[id number]: Date: [address] [place] [address] Zip: [place] [address] Age: 84Location: ED Sex: M Room/Bed: Att Phy:Diagnosis: WEAKNESS Prachi Phy: Garcia Simms, DOService Date: 11/03/19 Fam Phy:Interpreting Phy: Brandt Vogel MD Admit Phy: Ordering Phy: Vasu Cunningham M.D. cc: ~ MR brain wo/w con CLINICAL HISTORY: seizures, eval residual IVH, ?new cva COMPARISON STUDY: No prior MRIs. These have been performed at an outside institution. TECHNIQUE: Utilizing a 1.5 Gisela magnet and dedicated coil, multiplanar, multiecho imaging of the brain was performed pre and postcontrast administration. IV administration of 8 mL of Gadavist contrast was uneventful. FINDINGS: Diffusion images show no evidence for an acute ischemic event. Ventricular system is midline. Obtained images demonstrate essentially resolution of previously described hemorrhage. There potentially is a trace amount of blood within the right lateral ventricle although this is not well seen on MRI is better appreciated on CT finding. The MRI of the brain does not suggest a significant interval change. The there are components of chronic small vessel change. There is a small old right peripheral cerebellar infarct. There is chronic small vessel change of the pontine medullary region. Ventricular system is midline. IMPRESSION: No additional information compared to this prior CT evaluation of the brain. No evidence for an acute ischemic event. The ventricular blood previously described on CT isn't not well seen on MRI ACT 112: Negative or not required by law. The above report was generated using voice recognition software. It may contain grammatical, syntax or spelling errors. Electronically signed by: Brandt Vogel M.D. 11/03/2019 7:52 PM Dictated: 11/03/191948 Transcribed: 11/03/191948 [place], [place] [phone] Magnetic Resonance Report Patient: CATERINA CARMEN Date: 11/03/19 MR#: [id number]: [address] Acct ID:[id number]: Date: [address] [place] [address] Zip: [place] [address] Age: 84Location: ED Sex: M Room/Bed: Att Phy:Diagnosis: WEAKNESS Prachi Phy: Garcia Simms, DOService Date: 11/03/19 Fam Phy:Interpreting Phy: Brandt Vogel MD Admit Phy: Ordering Phy: Vasu Cunningham M.D. cc: ~ MR angio head wo con HISTORY: Seizures sz activity, SAH/cva 3wks ago TECHNIQUE: 3-D [id number] MRA of the brain was performed without contrast. COMPARISON STUDY: None. FINDINGS: Visualized intracranial internal carotid arteries, distal vertebral arteries, and basilar artery are patent. There is no significant stenosis, occlusion, or aneurysm seen within the bilateral ACAs, MCAs, or fowl blood tester. There are findings of moderate multifocal narrowing of the peripheral vasculature. Components of this are age-related. IMPRESSION: 1. The major central vasculature shows no significant stenosis or aneurysm formation. 2. The extreme peripheral vasculature of both cerebral hemispheres demonstrates moderate arterial occlusive change. ACT 112: Negative or not required by law. The above report was generated using voice recognition software. It may contain grammatical, syntax or spelling errors. Electronically signed by: Brandt Vogel M.D. 11/03/2019 7:16 PM [facility], [place] [phone] Magnetic Resonance Report Patient: CATERINA CARMEN Date: 11/03/19 MR#: [id number]: [address] Acct ID:[id number]: [facility] Zip: [place] [address] Age: 84Location: ED Sex: M Room/Bed: Att Phy:Diagnosis: WEAKNESS Prachi Phy: Garcia Simms, DOService Date: 11/03/19 Fam Phy:Interpreting Phy: Brandt Vogel MD Admit Phy: Ordering Phy: Vasu Cunningham M.D. cc: ~ MR angio neck wo/w con HISTORY: Status change sz activity, SAH/cva 3wks ago TECHNIQUE: Multiaxial CT angiography of the neck was performed IV contrast: None. All measurements were calculated based on NASCET criteria. Maximum intensity projection images were also obtained. A dose lowering technique was utilized adhering to the principles of ALARA. COMPARISON STUDY: CT angiogram of the neck 10/09/2019 FINDINGS: This examination is severely compromised due to patient motion.. Patient now potentially demonstrates a a 1.2 cm length of the the proximal right internal carotid artery which may be secondary to motion artifact, thrombus, with both findings potentially associated with a small dissection. CTA of the neck renal arteries is again suggested. There continues to be components of vascular atherosclerotic change of the left carotid system. It does not appear to be a significant left-sided stenotic process. Vertebral basilar system appears to be unremarkable. IMPRESSION: 1. Very limited/near nondiagnostic study due to patient motion. 2. Plaque formation is seen involving the left carotid system but there is no significant left-sided stenosis. 3. Artifact versus potential thrombus and associated small dissection of the proximal right internal carotid artery. The 2 cannot be adequately differentiated by this MRI. A repeat CTA of the neck carotid vasculature is suggested. ACT 112: Negative or not required by law. The above report was generated using voice recognition software. It may contain grammatical, syntax or spelling errors. Electronically signed by: Brandt Vogel M.D. 11/03/2019 8:30 PM Dictated: 11/03/192012 Transcribed: 11/03/192012 Dictated: 11/03/191914 Transcribed: 11/03/191914 Code Status & VTE Plan Code Status DNR/DNI VTE Prophylaxis Plan VTE Prophylaxis will be ordered: Yes PG Care Time/CCT Total # of Minutes Spent Total Time Spent with Patient: Total time spent is greater than 50% in coordination of care (as documented) at patient's floor/unit and/or counseling patient: Coding Level of Care Code 53676 Initial Inpt Care Lvl 3 Diagnoses Seizure R56.9 Dehydration E86.0 Hypomagnesemia E83.42 History of subarachnoid hemorrhage Z86.79 History of intraventricular hemorrhage Z86.79 CKD (chronic kidney disease) N18.9 Cardiac pacemaker in situ Z95.0 Atrial fibrillation I48.91 GERD (gastroesophageal reflux disease) K21.9 Carotid artery stenosis I65.29 Diabetes mellitus, type II E11.9
[2019-11-04] MEDS ORDERED: levETIRAcetam 500 MG in 0.9 % SODIUM CHLORIDE 100 ML IV SCH (03:30)
[2019-11-04] MEDS ORDERED: DEXAMETHASONE SOD PHOSPHATE 4 MG in SYRINGE 0 ML IV SCH (04:00)
[2019-11-04] MEDS ORDERED: FAMOTIDINE 20 MG in SYRINGE 3 ML IV SCH (04:00)
[2019-11-04] MEDS ORDERED: Nursing to Pharmacy Communication ONE (08:47)
--- NOTE | 2019-11-04 08:47 | Neurology Consultation ---
Date of Consultation November 04, 2019 Assessment & Plan (1) Seizure: (2) History of subarachnoid hemorrhage: (3) History of intraventricular hemorrhage: (4) Generalized weakness: (5) History of stroke: The patient has a history (sometime between October 02 through October 09) of spontaneous subarachnoid hemorrhage in the posterior fossa (perimesencephalic) with extension and layering in the occipital horns bilaterally. He was also discovered to have 2 small infarcts in the left pontine and right cerebellar hemispheric areas. He was felt to have no focal neurologic findings but was weak in general. After a stay at [facility], he was transferred to [facility] and made improvements. Patient returned to the emergency room November 02 with intermittent confusion and had a witnessed generalized tonic-clonic seizure with postictal state in the emergency room. He was given a Keppra 1000 mg loading dose and has been seizure-free since. His mental status is improved and clinically he is doing much better. On neurologic examination today he has some very mild right-sided weakness proximally compared to the left side which I believe is residual from his left pontine stroke. He does have short-term memory issues particularly from medical fax over the last 24 hours and even the last month, but his long- term memory is fairly good. 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 MRI of the brain November 02 showed no acute stroke and moderate old small vessel ischemic changes. There was minimal residual hemorrhage. CT scan showed market improvement in the blood as well. There is some residual blood in the occipital horns but improved compared to October 09. I do not believe there is any new bleeding. MR angiography of the head neck is unremarkable for any significant stenoses or dissection. I reviewed all of these films mentioned in this summary with Dr. Webster. Patient has a history of atrial fibrillation, now off anticoagulation due to recent subarachnoid hemorrhage, which is stable. He has a history of hypertension, dyslipidemia, and type 2 diabetes. His glucose is not very well controlled. Recommendations: 1. Control blood pressure as you are doing aiming for a mean arterial pressure between 95 and 100. 2. Lipids are controlled and high-dose statins are contraindicated. 3. Control glucose a meeting for a knee hemoglobin A1c of less than 8. 4. Keep off anticoagulants because of recent subarachnoid hemorrhage. Once blood is completely resorbed put back on 81 mg aspirin tablet daily. 5. Continue levetiracetam 500 mg twice daily. 6. There is no indication for EEG or other neurologic testing at this time. Otherwise, I spent a total of 105 minutes with this case including review of records, review of CT and MRI films, direct evaluation the patient bedside, and discussion of the case with the patient at bedside, RN at bedside, Dr. Hampton, and Dr. Webster, including differential diagnosis and treatment options. History of Present Illness Attending Physician: Nancy Hampton MD History of Present Illness Patient has a history of right carotid endarterectomy about 10 years ago for internal carotid stenosis. He has had 3 heart stents placed for coronary artery disease. He also carries a diagnosis of atrial fibrillation with pauses, sick sinus syndrome and ischemic cardiomyopathy. Pacer was placed in August of 2016. He also carries a history of hypertension, dyslipidemia, chronic kidney disease, and type 2 diabetes. He has been on Xarelto at least for 1 year and 81 mg aspirin tablet daily for years. Sometime around October 02 patient had the sudden onset of severe headache lasting 2 minutes. He does not typically get headaches. On October 09 after speaking to his primary care physician a CT scan of the head showed perimesencephalic subarachnoid hemorrhage (posterior) with some layering in the right posterior ventricle. In the emergency room, CTA of the head and neck were largely unremarkable. He was transferred to [facility]. There, a neurologic examination showed no focal neurologic findings. 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 MRI of the brain showed small right cerebellar and left pontine acute infarcts (as well as the hemorrhage) and echocardiogram revealed biatrial enlargement. Xarelto and aspirin were discontinued and he was discharged on no anticonvulsant. He had no seizure activity. He was sent to [facility], was given therapy and discharged on October 27. He was walking with a cane but still felt somewhat weak. He has had some weakness in general but this has been worse over the last several days. He has had some intermittent confusion as well, which is unusual for him. He arrived to the emergency room November 02 at 1058 with a temperature of 36.6, pulse 99 and irregular, respiratory rate 20 uncomfortable, blood pressure 157/83, and O2 saturation 95%. He was initially described as having no focal neurologic findings or confusion. A CT scan of the head showed that the hemorrhage was mostly resolved and there was a trace amount of hemorrhage in the right occipital horn. This was less than the CT of October 09. While in the ER he was witnessed to have a 60 second episode of being unresponsive with generalized tonic-clonic movements (arms bilaterally flexing) followed by some post event confusion and deviation of the eyes to the left. There was some agitation. He was given 0.5 mg of Ativan then given 1000 mg of IV Keppra. He has had no further seizures. MRI of the brain showed no acute stroke and the old ischemic changes as before. Hemorrhage was less. He was discussed via telestroke with Dr. Hernandez at [place]. There was a decision not to transfer the patient to [place] and remain at [facility]. MR angiography of the head neck was somewhat compromised by motion but showed no significant vessel stenosis. There is an artifact versus possible dissection area in the right internal carotid artery. CBC showed some mild anemia. Glucose was elevated to 150. Chemistry profile was otherwise unremarkable. This morning, he is afebrile and blood pressure is 117/67. Patient denies headaches, pain, speech problems, confusion or incontinence of urine. He does feel weak in general and 1 side is any weaker than the other. Patient is in atrial fibrillation chronically with a fairly controlled rate. He had a 15 beat of V-tach last night without symptoms. Allergies Allergy/AdvReac Type Severity Reaction Status Date / Time No Known Drug Allergies Allergy Verified 11/03/19 11:16 Home Medications Home Medications Medication Instructions Recorded Confirmed Type aspirin 81 mg tablet,delayed 81 mg PO QAM 06/15/19 11/03/19 History release nitroglycerin 0.4 mg sublingual 0.4 mg SL Q5M PRN tab 06/30/19 11/03/19 History tablet amlodipine 10 mg tablet 10 mg PO QAM 10/22/19 11/03/19 History bisacodyl 10 mg rectal suppository 10 mg NV DAILY PRN 10/22/19 11/03/19 History cholecalciferol (vitamin D3) 25 1,000 units PO QAM cap 10/22/19 11/03/19 History mcg (1,000 unit) capsule cyanocobalamin (vitamin B-12) 1,000 mcg PO QAM cap 10/22/19 11/03/19 History 1,000 mcg capsule docusate sodium 100 mg capsule 100 mg PO BID 10/22/19 11/03/19 History glucagon HCl 1 mg solution for 1 mg SQ Q20M PRN 10/22/19 11/03/19 History injection metformin 500 mg tablet 500 mg PO BIDM 10/22/19 11/03/19 History metoprolol tartrate 25 mg tablet 25 mg PO BID 10/22/19 11/03/19 History polyethylene glycol 3350 17 17 gm PO DAILY PRN 10/22/19 11/03/19 History gram/dose oral powder tamsulosin 0.4 mg capsule 0.4 mg PO QAM 10/22/19 11/03/19 History esomeprazole magnesium 40 mg 40 mg PO QAM 10/29/19 11/03/19 History capsule,delayed release furosemide 40 mg tablet 40 mg PO QAM 10/29/19 11/03/19 History acetaminophen [Tylenol] 325 mg PO QID PRN 11/03/19 11/03/19 History atorvastatin 40 mg PO HS 11/03/19 11/03/19 History finasteride 5 mg PO QAM 11/03/19 11/03/19 History rivaroxaban [Xarelto] 15 mg PO DAILY 11/04/19 11/04/19 History Patient History Medical History (Updated 11/04/19 @ 08:55 by Kun Steward III, MD) Actinic keratosis Bradycardia Diverticulosis Inhibited sexual desire Knee pain Lyme disease Paronychia Sick sinus syndrome Tick bite Upper respiratory infection Surgical History S/P cardiac catheterization S/P cardiac pacemaker procedure S/P carotid endarterectomy Family History Father , age 61 of an MRI Myocardial infarction Daughter Breast cancer Brother Coronary heart disease Diabetes Melanoma of skin Mother , age 81 of lung cancer Lung cancer Social History (Updated 11/04/19 @ 08:50 by Kun Steward III, MD) Preferred Language: Occitan Communication Ability: Effective Visual Impairment: No Limitations Hearing Ability: Normal [employer] Pro[employer] Required: No Beliefs That Will Affect Care: None marital status: Current Living Situation: Spouse current occupational status: retired 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 Other Information That Helps Us Care for You: No other: 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50, 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 Feels Safe at Home: Yes Safety Concerns: Feels Safe At This Time Smoking Status: Never smoker Hx Alcohol Use: No Hx Substance Use: No Review of Systems Constitutional: + fatigue and + weakness; no fever Eyes: no diplopia, no eye pain and no worsening vision Ear, Nose, Mouth, Throat: no ear pain, no tinnitus, no hearing loss, no dizziness, no snoring, no hoarseness and no dysphagia Respiratory: no cough and no dyspnea Cardiovascular: no chest pain, no palpitations and no lightheadedness Gastrointestinal: no abdominal pain, no nausea and no vomiting Genitourinary: no dysuria and no urinary incontinence Musculoskeletal: no back pain, no neck pain, no radicular pain, no joint pain and no myalgia Integumentary: no rash and no lesions Neurologic: + generalized weakness and + confusion; no gait abnormality, no localized weakness, no tingling, no numbness, no tremor(s), no abnormal movements, no headache(s), no abnormal speech and no memory loss Psychiatric: no depression, no irritability, no anxiety, no difficulty concen trating, no confusion and no hallucinations Endocrine: + fatigue; no flushing Hematologic / Lymphatic: no easy bleeding and no easy bruising Allergy / Immunological: no urticaria and no problem reported Physical Exam Physical Exam: The patient is right-handed. The patient is awake, alert, and attentive. Speech is normal without any aphasia or dysarthria. he can name objects, repeat phrases, and has normal spontaneous speech. Thought processes are intact and he is oriented fully to person, place, and time. Long-term memory is very good and he converses nicely. He has considerable short-term memory issues with his medical details and the last month or so. Mood is normal and affect is appropriate. Appearance and grooming is unremarkable. The discs are sharp bilaterally. Pupils are 3 mm bilaterally and reactive to light. Extraocular eye muscles are intact without nystagmus. Visual acuity and visual reed seem normal grossly to confrontation. There are no deficits to sensation in the face in all 3 distributions of the fifth cranial nerve bilaterally. Corneal reflexes are positive bilaterally. Facial strength and symmetry was normal bilaterally. Hearing seems normal to whisper and finger rub bilaterally. Palate moves well without asymmetry. There is normal sternocleidomastoid and trapezius (shoulder shrug) strength bilaterally. Tongue is midline with good strength bilaterally. Neck has a full range of motion without discomfort. There are no cervical bruits bilaterally. There are no cranial or ocular bruits. Heart is without murmur. There is irregular rhythm. Cervical, thoracic, and lumbar spine are nontender to palpation. Gait was not tested but stance sitting up in bed is normal. With outstretched arms there is no drift. There are no resting, postural, or action tremors. There is no ataxia with finger to nose testing. There is good facility in the hands. No other abnormal involuntary movements are noted. Motor strength is 5/5 diffusely in the left arm and leg both proximally and distally. The right upper extremity is 5/5 diffusely except for the biceps which is 4+/5. The right lower extremity in the hip flexors and quadriceps are 4+/5 but distally in the tibialis anterior and gastrocnemius muscles are 5/5. The limbs have good tone without rigidity or spasticity. There is no atrophy noted in the muscles. Muscle bulk is normal, there is no tenderness to palpation, no myotonia to percussion, and no fasciculations seen. Sensory examination is intact to touch and pin throughout all 4 limbs diffusely. Reflexes are 1/4 in the biceps, triceps, brachioradialis, quadriceps, and A chilles tendons bilaterally. There is no clonus bilaterally. Toes are downgoing with plantar stimulation bilaterally. Peripheral pulses are present and of normal quality distally in all 4 limbs. T here is no peripheral edema noted in the limbs. Results & Data Vital Signs (Past 12 Hours) Vital Signs Temp Pulse Pulse Resp BP Pulse Ox 11/04/19 07:09 36.4 C L 88 16 117/67 98 11/04/19 04:16 36.4 C L 75 20 123/74 97 11/04/19 00:00 92 H 11/03/19 23:00 36.4 C L 98 H 18 150/74 H 92 11/03/19 22:36 83 22 138/81 93 11/03/19 21:18 83 16 112/67 99 03/23/20 20:30 70 20 118/68 95 PG Care Time/CCT Total # of Minutes Spent Total Time Spent with Patient: Total time spent is greater than 50% in coordination of care (as documented) at patient's floor/unit and/or counseling patient: Coding Level of Care Code 53843 Initial Inpt Care Lvl 3 Diagnoses Seizure R56.9 History of subarachnoid hemorrhage Z86.79 History of intraventricular hemorrhage Z86.79 Generalized weakness R53.1 History of stroke Z86.73 Time Spent (min) 105 Comment Add [id number] to the [id number]
[2019-11-04] MEDS: levETIRAcetam 500 MG TAB PO SCH ×2 (08:59→20:44)
[2019-11-04] MEDS ORDERED: PANTOprazole 40 MG TAB PO SCH (09:30)
[2019-11-04] MEDS ORDERED: LANTUS PER UNIT CHARGE SQ ONE (09:45)
[2019-11-04 09:53] LABS: BUN Creatinine Ratio 20.5 (10-20); Calcium 6.8 mg/dl (8.5-10.1); Creatinine Clr Calc Pharmacy 45.6 ml/min; Est GFR (African American) 57.7; Est GFR (Non-African American) 49.8; Magnesium 2.5 mg/dl (1.8-2.4); Phosphorus 4.8 mg/dl (2.5-4.9); Potassium 3.8 mmol/L (3.5-5.1)
[2019-11-04 10:04] LABS: Beta-Hydroxybutyrate 20.81 mg/dl (0.2-2.81)
[2019-11-04] MEDS ORDERED: NITROGLYCERIN SL 0.4 MG/TAB TAB SL PRN (10:26)
[2019-11-04] MEDS: CHOLECALCIFEROL 1,000 UNITS 25 MCG TAB PO SCH (11:20)
[2019-11-04] MEDS: TAMSULOSIN HCL 0.4 MG CAP PO SCH (11:20)
[2019-11-04] MEDS: FINASTERIDE 5 MG TAB PO SCH (11:20)
[2019-11-04] MEDS: METOPROLOL TARTRATE 25 MG TAB PO SCH ×2 (11:20→20:43)
[2019-11-04] MEDS: CYANOCOBALAMIN 500 MCG TABLET (VITAMIN B-12) PO SCH (11:20)
[2019-11-04] MEDS: AMLODIPINE BESYLATE 5 MG TAB PO SCH (11:20)
[2019-11-04] MEDS: DOCUSATE SODIUM 100 MG CAP PO SCH ×2 (11:21→20:44)
[2019-11-04] MEDS ORDERED: INSULIN ASPART 100 UNITS/ML 3 ML PEN SC SCH ×3 (11:30→21:00)
[2019-11-04] MEDS ORDERED: INSULIN HUMAN REGULAR PER UNIT 5 UNITS in SYRINGE 0 ML IV STA (11:35)
[2019-11-04] MEDS ORDERED: INSULIN HUMAN REGULAR PER UNIT 5 UNITS in SYRINGE 4.95 ML IV ONE (12:00)
[2019-11-04] MEDS ORDERED: ASPIRIN 81 MG ECTAB PO ONE (13:30)
--- NOTE | 2019-11-04 13:59 | Hospitalist Progress Note ---
Date of Service November 04, 2019 Assessment & Plan (1) Seizure: Brought to hospital due to increased confusion at home, then subsequently had a witnessed generalized seizure in the ER. 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 Initial question of artifact vs carotid artery dissection but review with Neuro and Radiology today confirm no dissection Now mental status much improved. Neuro consult appreciated -seizure likely secondary to recent ICH and CVA -Convert IV Keppra to po 500 mg q12 -dc IV Decadron started on admission -no need for any further imaging or EEG as per Neuro -continue Seizure precautions. -will ensure no driving and form submitted to [facility] recommending as such (2) Hypomagnesemia: Magnesium level was 0.4 upon admission. He received 2 g magnesium sulfate IV by the ED and repeat Mag still only 0.4 Unclear etiology but has been on PPI he states for 30 years which may be contributing. Then received an additional 4 g IV, and now Mag up to 2.5 -follow BMP, Mag level in AM (3) History of subarachnoid hemorrhage: Imaging on admission does not demonstrate any additional bleeding and in fact is much improved from previous (4) History of intraventricular hemorrhage: Small amount of residual hematoma noted on CT as above (5) Ventricular tachycardia: With 15 beat run of NSVT, asymptomatic on AM of 11/03 -with a h/o reduced EF but most recent LVEF 50% in 09/2019 at [place] -metoprolol was held on admission for AMS--> will now restart -has pacer but not ICD--> Consult Cardio--> no indication for ICD at this time -continue tele monitoring -replace lytes as needed (6) Diabetes mellitus, type II: Restarted ADA diet With severe hyperglycemia here secondary to corticosteroids started initially for suspected recurrent bleed due to seizure -dc Decadron -added Lantus 8 units this AM, tightened SSI with Novolog and gave Reg insulin 5 units IV x 1 at noon--> still with glucose in mid to high 300s--> start insulin gtt and taper off overnight Last HgbA1C 10% in 09/2019 and was recently started on metformin with glimiperide dcd at [facility] 2 weeks ago -holding metformin from home due to contrast given for imaging -check A1C in AM -Consult Pharmacy for Glycemic management appreciated (7) CKD (chronic kidney disease): With Acute renal failure on admission with creatinine 1.54, with follow-up after hydration 1.21, with previous range 1.37-2.00 in the recent past may have been secondary to starting Entresto on 10/03/19 Now stable at 1.3 -dc IVFs -follow BMP (8) Cardiac pacemaker in situ: for SSS (9) Atrial fibrillation: Anticoagulation on hold due to previous subarachnoid and intraventricular hemorrhage -continue metoprolol but chnage to Toprol XL in the AM (10) GERD (gastroesophageal reflux disease): Dc p.o. Nexium due to hypomagnesemia. 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 Occurred simultaneously with spontaneous SAH--> possibly hypertensive bleed and then vasospasm causing ischemic CVAs? -continue ASA 81mg daily-restarted now that no recurrent bleed is present -continue statin -continue BP control and needs improved BP control (13) Ischemic cardiomyopathy: never got put back on ACEi/ARB /Entresto or lasix or Toprol XL after hospitalization at [facility] [place] 50% at [facility] recently but worse here prior to that -convert metoprolol tartrate to previous Toprol XL 100mg daily in the AM -eventually restart ACEi -Entresto started a few weeks ago briefly but had UZMA, and then admitted for CVA and SAH and was discontinued -daily weights, I/Os (14) Hypertension: BPs not well controlled overall -could be from decadron -restarted all home BP meds (15) Sick sinus syndrome: with PPM as above (16) Coronary artery disease: with h/o remote stent placement -continue ASA, statin, beta neno Recent Nuc Stress 09/2019 completed for [facility] and was neg for inducible ischemia (17) BPH NOS w ur obs/LUTS: -restart home FLomax and finasteride Had urinary retention at last hospitalization, now improved (18) DVT prophylaxis: start SQ heparin Dispo-remain overnight for improved glucose control Admission and Anticipated Discharge Date Admission Date: November 03, 2019 Anticipated date of discharge: 11/05/19 Subjective Pt reports feeling much better today. Denies headache or lightheadedness. States that he cannot remember much about yesterday's events. He remembers coming to the ER and being confused, but then doesn't remember anything after that. Denies chest pain or SOB, no nausea or vomiting, no abd pain, no weakness. I discussed his case at length with Neurology and Cardiology. Tele with Afib with PVCs, rates in the 80s, some couplets and a 15 beat run of VT Review of Systems Review of Systems: All systems reviewed & are unremarkable except as noted in HPI & below Physical Exam Constitutional: WD/WN, vitals as above Eyes: PERRL, conjunctivae normal, anicteric sclerae ENMT: external ear and nose normal, oropharynx normal Neck: trachea midline, no thyromegaly Respiratory: normal respiratory effort, lungs clear to auscultation Cardiovascular: Rate/Rhythm: regular rate and + irregularly irregular Heart Sounds: no murmur Extremities: no edema Chest (Breasts): Chest: + pacemaker Gastrointestinal (Abdomen): normal bowel sounds, soft, nontender, no hepatosplenomegaly Musculoskeletal: Extremities: extremities normal to inspection; no cyanosis and no clubbing Skin: no rashes, warm and dry Neurologic: moves all extremities and awake; no focal motor deficits Psychiatric: A+Ox3, euthymic affect Lymphatic: no lymphedema Results & Data ([facility]) Vital Signs (Past 12 Hours) Vital Signs Temp Pulse Resp BP Pulse Ox 11/04/19 13:29 96 11/04/19 11:41 36.8 C 95 H 18 133/77 95 11/04/19 07:09 36.4 C L 88 16 117/67 98 11/04/19 04:16 36.4 C L 75 20 123/74 97 Laboratory Results 11/04/19 11/04/19 11/04/19 Range/Units 22:10 20:38 19:33 Sodium (136-145) mmol/L Potassium (3.5-5.1) mmol/L Chloride (98-107) mmol/L Carbon Dioxide (21-32) mmol/L Anion Gap (3-11) BUN (7-18) mg/dl Creatinine (0.6-1.4) mg/dl Est Cr Clr Drug Dosing ml/min Est GFR ( Amer) Est GFR (Non-Af Amer) BUN/Creatinine Ratio (-20) Glucose (70-99) mg/dl POC Glucose 83 126 H 194 H (70-99) mg/dl Calcium (8.5-10.1) mg/dl Phosphorus (2.5-4.9) mg/dl Magnesium (1.8-2.4) mg/dl Beta-Hydroxybutyric Acd (0.2-2.81) mg/dl Urine Color Urine Appearance (Clear) Urine pH (4.5-7.5) Ur Specific [place] (1.000-1.030) Urine Protein (Negative) Urine Glucose (UA) (Negative) Urine Ketones (Negative) Urine Blood (Negative) Urine Nitrite (Negative) Urine Bilirubin (Negative) Urine Urobilinogen (Negative) Ur Leukocyte Esterase (Negative) Urine RBC (0-4) /hpf Urine WBC (0-5) /hpf Ur Epithelial Cells (0-5) /lpf Urine Bacteria (Negative) 11/04/19 11/04/19 11/04/19 Range/Units 18:22 16:32 16:31 Sodium (136-145) mmol/L Potassium (3.5-5.1) mmol/L Chloride (98-107) mmol/L Carbon Dioxide (21-32) mmol/L Anion Gap (3-11) BUN (7-18) mg/dl Creatinine (0.6-1.4) mg/dl Est Cr Clr Drug Dosing ml/min Est GFR ( Amer) Est GFR (Non-Af Amer) BUN/Creatinine Ratio (-20) Glucose (70-99) mg/dl POC Glucose 343 H* 348 H* 351 H* (70-99) mg/dl Calcium (8.5-10.1) mg/dl Phosphorus (2.5-4.9) mg/dl Magnesium (1.8-2.4) mg/dl Beta-Hydroxybutyric Acd (0.2-2.81) mg/dl Urine Color Urine Appearance (Clear) Urine pH (4.5-7.5) Ur Specific [place] (1.000-1.030) Urine Protein (Negative) Urine Glucose (UA) (Negative) Urine Ketones (Negative) Urine Blood (Negative) Urine Nitrite (Negative) Urine Bilirubin (Negative) Urine Urobilinogen (Negative) Ur Leukocyte Esterase (Negative) Urine RBC (0-4) /hpf Urine WBC (0-5) /hpf Ur Epithelial Cells (0-5) /lpf Urine Bacteria (Negative) 11/04/19 11/04/19 11/04/19 Range/Units 13:26 11:33 11:32 Sodium (136-145) mmol/L Potassium (3.5-5.1) mmol/L Chloride (98-107) mmol/L Carbon Dioxide (21-32) mmol/L Anion Gap (3-11) BUN (7-18) mg/dl Creatinine (0.6-1.4) mg/dl Est Cr Clr Drug Dosing ml/min Est GFR ( Amer) Est GFR (Non-Af Amer) BUN/Creatinine Ratio (10-20) Glucose (70-99) mg/dl POC Glucose 348 H* 399 H* 391 H* (70-99) mg/dl Calcium (8.5-10.1) mg/dl Phosphorus (2.5-4.9) mg/dl Magnesium (1.8-2.4) mg/dl Beta-Hydroxybutyric Acd (0.2-2.81) mg/dl Urine Color Urine Appearance (Clear) Urine pH (4.5-7.5) Ur Specific [place] (1.000-1.030) Urine Protein (Negative) Urine Glucose (UA) (Negative) Urine Ketones (Negative) Urine Blood (Negative) Urine Nitrite (Negative) Urine Bilirubin (Negative) Urine Urobilinogen (Negative) Ur Leukocyte Esterase (Negative) Urine RBC (0-4) /hpf Urine WBC (0-5) /hpf Ur Epithelial Cells (0-5) /lpf Urine Bacteria (Negative) 11/04/19 11/04/19 11/03/19 Range/Units 09:05 05:38 23:58 Sodium 135 L (136-145) mmol/L Potassium 3.8 (3.5-5.1) mmol/L Chloride 100 (98-107) mmol/L Carbon Dioxide 25 (21-32) mmol/L Anion Gap 11.0 (3-11) BUN 27 H (7-18) mg/dl Creatinine 1.30 (0.6-1.4) mg/dl Est Cr Clr Drug Dosing 45.6 ml/min Est GFR ( Amer) 57.7 Est GFR (Non-Af Amer) 49.8 BUN/Creatinine Ratio 20.5 H (10-20) Glucose 321 H* (70-99) mg/dl POC Glucose 282 H 275 H (70-99) mg/dl Calcium 6.8 L (8.5-10.1) mg/dl Phosphorus 4.8 (2.5-4.9) mg/dl Magnesium 2.5 H (1.8-2.4) mg/dl Beta-Hydroxybutyric Acd 20.81 H (0.2-2.81) mg/dl Urine Color Urine Appearance (Clear) Urine pH (4.5-7.5) Ur Specific [place] (1.000-1.030) Urine Protein (Negative) Urine Glucose (UA) (Negative) Urine Ketones (Negative) Urine Blood (Negative) Urine Nitrite (Negative) Urine Bilirubin (Negative) Urine Urobilinogen (Negative) Ur Leukocyte Esterase (Negative) Urine RBC (0-4) /hpf Urine WBC (0-5) /hpf Ur Epithelial Cells (0-5) /lpf Urine Bacteria (Negative) 11/03/19 Range/Units 23:45 Sodium (136-145) mmol/L Potassium (3.5-5.1) mmol/L Chloride (98-107) mmol/L Carbon Dioxide (21-32) mmol/L Anion Gap (3-11) BUN (7-18) mg/dl Creatinine (0.6-1.4) mg/dl Est Cr Clr Drug Dosing ml/min Est GFR ( Amer) Est GFR (Non-Af Amer) BUN/Creatinine Ratio (10-20) Glucose (70-99) mg/dl POC Glucose (70-99) mg/dl Calcium (8.5-10.1) mg/dl Phosphorus (2.5-4.9) mg/dl Magnesium (1.8-2.4) mg/dl Beta-Hydroxybutyric Acd (0.2-2.81) mg/dl Urine Color Yellow Urine Appearance Clear (Clear) Urine pH 5.0 (4.5-7.5) Ur Specific [place] 1.020 (1.000-1.030) Urine Protein Trace H (Negative) Urine Glucose (UA) Negative (Negative) Urine Ketones Negative (Negative) Urine Blood 1+ H (Negative) Urine Nitrite Negative (Negative) Urine Bilirubin Negative (Negative) Urine Urobilinogen Negative (Negative) Ur Leukocyte Esterase 2+ H (Negative) Urine RBC 0-4 (0-4) /hpf Urine WBC >30 H (0-5) /hpf Ur Epithelial Cells 0-5 (0-5) /lpf Urine Bacteria 1+ H (Negative) PG Care Time/CCT Total # of Minutes Spent Total Time Spent with Patient: Total time spent is greater than 50% in coordination of care (as documented) at patient's floor/unit and/or counseling patient: Coding Level of Care Code 45636 Subseq Hosp Care Lvl 3 Diagnoses Seizure R56.9 Hypomagnesemia E83.42 History of subarachnoid hemorrhage Z86.79 History of intraventricular hemorrhage Z86.79 Ventricular tachycardia I47.2 Diabetes mellitus, type II E11.9 CKD (chronic kidney disease) N18.9 Cardiac pacemaker in situ Z95.0 Atrial fibrillation I48.91 GERD (gastroesophageal reflux disease) K21.9 Carotid artery stenosis I65.29 History of stroke Z86.73 Ischemic cardiomyopathy I25.5 Hypertension I10 Sick sinus syndrome I49.5 Coronary artery disease I25.10 BPH NOS w ur obs/LUTS N40.1 DVT prophylaxis Z29.9
[2019-11-04] MEDS ORDERED: CALCIUM GLUCONATE 10% 1,000 MG in SODIUM CHLORIDE 0.9% 50 ML IV SCH (14:30)
[2019-11-04] MEDS: HEPARIN SOD 5,000 UNIT/0.5 ML VIAL SQ SCH ×2 (14:39→23:47)
[2019-11-04] MEDS ORDERED: PHARMACY GLYCEMIC MGMT CONSULT PRN (16:51)
--- NOTE | 2019-11-04 17:12 | Cardiology Consultation ---
Date of Consultation November 04, 2019 Assessment & Plan (1) Ventricular tachycardia: He had nonsustained ventricular tachycardia. This lasted just a few seconds. He is not symptomatic. I interrogated his pacemaker today and this did not record other events of ventricular tachycardia recently. He has no other symptoms suggestive of more malignant ventricular arrhythmias. His most recent echocardiogram demonstrated improved LV systolic function. No indication for an ICD as primary prevention. No other indication currently for an ICD. Continue medical therapy with beta-blockade. (2) Cardiac pacemaker in situ: Single-chamber device. Normal function. Less pacing recently likely due to higher heart rates overall. This is likely due to a reduction in his metoprolol dose. (3) Atrial fibrillation: Permanent. Previously on Xarelto. This has been discontinued since his subarachnoid hemorrhage. (4) Ischemic cardiomyopathy: Our last office visit we added Entresto to his medical regimen. This appears to been discontinued. Not currently on Carlos inhibitor either. I suspect this was all discontinued due to transient renal dysfunction. Once were con fident his renal function is stabilized re-initiation of this medication would be advisable. He appears well compensated currently. Continue on metoprolol and Lasix. (5) Coronary artery disease: History of Present Illness Reason for Consultation: Nonsustained ventricular tachycardia Requesting Physician: Memo Attending Physician: Nancy Hampton MD History of Present Illness Patient is a 4-year-old gentleman known to me from the outpatient setting where he is followed for remote history of coronary disease, a mild ischemic cardiomyopathy, permanent atrial fibrillation and prior implantation of single- chamber permanent pacemaker. Seems that around October 03 the patient suffered an acute intracranial hemorrhage identified a few days later in resulting in hospitalization [facility]. Patient's anticoagulation was stopped at that time. His symptoms of headache, dizziness and nausea eventually improved and he was discharged to rehabilitation. Patient had some difficulty with ambulation and weakness at that time. This seemed to improved an x-ray was discharged home where he became acutely more weak and apparently suffered a witnessed seizure. Patient was started on anti epileptic medication and admitted for observation. This included telemetry. He was noted to have nonsustained ventricular tachycardia on telemetry. Currently the patient claims to be feeling well. He states he feels better today than he has in several days. He admits to an element of confusion recently. He does not remember much regarding the events of last evening and in fact remembers coming to the hospital but waking up this morning in his hospital room. He recalls little else of a coarsely yesterday evening. He appears to have some difficulty remembering details over the past few weeks, but does remember feeling somewhat weak at times and having difficulty with ambulation currently. No current headaches. No current dizziness. No other episodes of syncope. Allergies Allergy/AdvReac Type Severity Reaction Status Date / Time No Known Drug Allergies Allergy Verified 11/03/19 11:16 Home Medications Home Medications Medication Instructions Recorded Confirmed Type nitroglycerin 0.4 mg sublingual 0.4 mg SL Q5M PRN tab 06/30/19 11/03/19 History tablet amlodipine 10 mg tablet 10 mg PO QAM 10/22/19 11/03/19 History bisacodyl 10 mg rectal suppository 10 mg MI DAILY PRN 10/22/19 11/03/19 History cholecalciferol (vitamin D3) 25 1,000 units PO QAM cap 10/22/19 11/03/19 History mcg (1,000 unit) capsule cyanocobalamin (vitamin B-12) 1,000 mcg PO QAM cap 10/22/19 11/03/19 History 1,000 mcg capsule docusate sodium 100 mg capsule 100 mg PO BID 10/22/19 11/03/19 History glucagon HCl 1 mg solution for 1 mg SQ Q20M PRN 10/22/19 11/03/19 History injection metformin 500 mg tablet 500 mg PO BIDM 10/22/19 11/03/19 History metoprolol tartrate 25 mg tablet 25 mg PO BID 10/22/19 11/03/19 History polyethylene glycol 3350 17 17 gm PO DAILY PRN 10/22/19 11/03/19 History gram/dose oral powder tamsulosin 0.4 mg capsule 0.4 mg PO QAM 10/22/19 11/03/19 History esomeprazole magnesium 40 mg 40 mg PO QAM 10/29/19 11/03/19 History capsule,delayed release furosemide 40 mg tablet 40 mg PO QAM 10/29/19 11/03/19 History acetaminophen [Tylenol] 325 mg PO QID PRN 11/03/19 11/03/19 History atorvastatin 40 mg PO HS 11/03/19 11/03/19 History finasteride 5 mg PO QAM 11/03/19 11/03/19 History aspirin [Aspirin Low Dose] 81 mg PO DAILY 11/04/19 11/04/19 History Patient History Medical History Actinic keratosis Bradycardia Diverticulosis Inhibited sexual desire Knee pain Lyme disease Paronychia Sick sinus syndrome Tick bite Upper respiratory infection Ventricular tachycardia Surgical History S/P cardiac catheterization S/P cardiac pacemaker procedure S/P carotid endarterectomy Family History Father , age 61 of an MRI Myocardial infarction Daughter Breast cancer Brother Coronary heart disease Diabetes Melanoma of skin Mother , age 81 of lung cancer Lung cancer Social History Preferred Language: Lao Communication Ability: Effective Visual Impairment: No Limitations Hearing Ability: Normal General Education Professor Required: No Beliefs That Will Affect Care: None marital status: Life Partner Current Living Situation: Spouse current occupational status: retired 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 No current chest pain. No sense of palpitation. Physical Exam Physical Exam: The patient is alert and oriented. Mood and affect appeared normal. He answered all questions appropriately. HEENT: Pupils are equal and reactive to light and accommodation. Extraocular movements are intact. The sclerae are anicteric. Neuro: Cranial nerves intact Neck: Patient's neck is supple. He has palpable carotid pulses bilaterally without bruits on auscultation. There is no evidence of jugular venous distention. The thyroid is not enlarged. Lungs: Clear to auscultation bilaterally. He has good air movement without use of accessory muscles. No rales wheezes or rhonchi. Cardiac: Heart demonstrates a regular rate and rhythm. Normal S1 and S2. No murmurs on examination. Pulses: The patient has palpable radial pulses bilaterally that are equal in intensity Extremities: There was no evidence of hypoperfusion. There is no cyanosis or clubbing. There is no edema. Skin: I did not appreciate any rashes on examination today. Results & Data ([facility]) Vital Signs (Past 12 Hours) Vital Signs Temp Pulse Pulse Resp BP BP Pulse Ox 11/04/19 15:45 68 11/04/19 15:24 36.4 C L 66 18 155/61 H 91 11/04/19 13:29 96 11/04/19 11:41 36.8 C 95 H 18 133/77 95 11/04/19 07:09 36.4 C L 88 16 117/67 98 Laboratory Results Abnormal Lab Results 11/03/19 11/03/19 11/03/19 20:59 20:59 23:45 WBC 7.47 RBC 3.83 L Hgb 11.1 L Hct 33.9 L MCV 88.5 MCH 29.0 MCHC 32.7 RDW Std Deviation 49.1 H RDW Coeff of Crispin 15.3 H Plt Count 187 MPV 9.0 Immature Gran % (Auto) 0.5 Neut % (Auto) 91.8 Lymph % (Auto) 6.2 Gray % (Auto) 1.3 Eos % (Auto) 0.1 Baso % (Auto) 0.1 Immature Gran # (Auto) 0.04 H Neut # (Auto) 6.85 H Lymph # (Auto) 0.46 L Gray # (Auto) 0.10 L Eos # (Auto) 0.01 Baso # (Auto) 0.01 Sodium 137 Potassium 3.5 Chloride 99 Carbon Dioxide 28 Anion Gap 9.0 BUN 23 H Creatinine 1.21 D Est Cr Clr Drug Dosing 49.0 Est GFR ( Amer) 62.9 Est GFR (Non-Af Amer) 54.3 BUN/Creatinine Ratio 18.6 Glucose 253 H POC Glucose Calcium 6.8 L Phosphorus Magnesium 1.0 L Total Bilirubin 1.2 H AST 19 ALT 18 Alkaline Phosphatase 114 Total Protein 7.2 Albumin 3.4 Globulin 3.8 Albumin/Globulin Ratio 0.9 Beta-Hydroxybutyric Acd Urine Color Yellow Urine Appearance Clear Urine pH 5.0 Ur Specific [place] 1.020 Urine Protein Trace H Urine Glucose (UA) Negative Urine Ketones Negative Urine Blood 1+ H Urine Nitrite Negative Urine Bilirubin Negative Urine Urobilinogen Negative Ur Leukocyte Esterase 2+ H Urine RBC 0-4 Urine WBC >30 H Ur Epithelial Cells 0-5 Urine Bacteria 1+ H 11/03/19 11/04/19 11/04/19 23:58 05:38 09:05 WBC RBC Hgb Hct MCV MCH MCHC RDW Std Deviation RDW Coeff of Crispin Plt Count MPV Immature Gran % (Auto) Neut % (Auto) Lymph % (Auto) Gray % (Auto) Eos % (Auto) Baso % (Auto) Immature Gran # (Auto) Neut # (Auto) Lymph # (Auto) Gray # (Auto) Eos # (Auto) Baso # (Auto) Sodium 135 L Potassium 3.8 Chloride 100 Carbon Dioxide 25 Anion Gap 11.0 BUN 27 H Creatinine 1.30 Est Cr Clr Drug Dosing 45.6 Est GFR ( Amer) 57.7 Est GFR (Non-Af Amer) 49.8 BUN/Creatinine Ratio 20.5 H Glucose 321 H* POC Glucose 275 H 282 H Calcium 6.8 L Phosphorus 4.8 Magnesium 2.5 H Total Bilirubin AST ALT Alkaline Phosphatase Total Protein Albumin Globulin Albumin/Globulin Ratio Beta-Hydroxybutyric Acd 20.81 H Urine Color Urine Appearance Urine pH Ur Specific [place] Urine Protein Urine Glucose (UA) Urine Ketones Urine Blood Urine Nitrite Urine Bilirubin Urine Urobilinogen Ur Leukocyte Esterase Urine RBC Urine WBC Ur Epithelial Cells Urine Bacteria 11/04/19 11/04/19 11/04/19 11:32 11:33 13:26 WBC RBC Hgb Hct MCV MCH MCHC RDW Std Deviation RDW Coeff of Crispin Plt Count MPV Immature Gran % (Auto) Neut % (Auto) Lymph % (Auto) Gray % (Auto) Eos % (Auto) Baso % (Auto) Immature Gran # (Auto) Neut # (Auto) Lymph # (Auto) Gray # (Auto) Eos # (Auto) Baso # (Auto) Sodium Potassium Chloride Carbon Dioxide Anion Gap BUN Creatinine Est Cr Clr Drug Dosing Est GFR ( Amer) Est GFR (Non-Af Amer) BUN/Creatinine Ratio Glucose POC Glucose 391 H* 399 H* 348 H* Calcium Phosphorus Magnesium Total Bilirubin AST ALT Alkaline Phosphatase Total Protein Albumin Globulin Albumin/Globulin Ratio Beta-Hydroxybutyric Acd Urine Color Urine Appearance Urine pH Ur Specific [place] Urine Protein Urine Glucose (UA) Urine Ketones Urine Blood Urine Nitrite Urine Bilirubin Urine Urobilinogen Ur Leukocyte Esterase Urine RBC Urine WBC Ur Epithelial Cells Urine Bacteria 11/04/19 11/04/19 16:31 16:32 WBC RBC Hgb Hct MCV MCH MCHC RDW Std Deviation RDW Coeff of Crispin Plt Count MPV Immature Gran % (Auto) Neut % (Auto) Lymph % (Auto) Gray % (Auto) Eos % (Auto) Baso % (Auto) Immature Gran # (Auto) Neut # (Auto) Lymph # (Auto) Gray # (Auto) Eos # (Auto) Baso # (Auto) Sodium Potassium Chloride Carbon Dioxide Anion Gap BUN Creatinine Est Cr Clr Drug Dosing Est GFR ( Amer) Est GFR (Non-Af Amer) BUN/Creatinine Ratio Glucose POC Glucose 351 H* 348 H* Calcium Phosphorus Magnesium Total Bilirubin AST ALT Alkaline Phosphatase Total Protein Albumin Globulin Albumin/Globulin Ratio Beta-Hydroxybutyric Acd Urine Color Urine Appearance Urine pH Ur Specific [place] Urine Protein Urine Glucose (UA) Urine Ketones Urine Blood Urine Nitrite Urine Bilirubin Urine Urobilinogen Ur Leukocyte Esterase Urine RBC Urine WBC Ur Epithelial Cells Urine Bacteria Diagnostic Findings Echocardiogram performed 10/02/2019. Ejection fraction 50 percent. Mild mitral regurgitation. Severe biatrial dilation. Moderate pulmonary hypertension Nuclear stress test 09/24/2019: No evidence of ischemia. ECG Additional Comments: EKG at the time of admission revealed atrial fibrillation with frequent ventricular ectopy and aberrant conduction. PG Care Time/CCT Total # of Minutes Spent Total Time Spent with Patient: Total time spent is greater than 50% in coordination of care (as documented) at patient's floor/unit and/or counseling patient: Coding Level of Care Code 59978 Initial Inpt Care Lvl 3 Diagnoses Ventricular tachycardia I47.2 Cardiac pacemaker in situ Z95.0 Atrial fibrillation I48.91 Ischemic cardiomyopathy I25.5 Coronary artery disease I25.10
[2019-11-04] MEDS ORDERED: INSULIN PROTOCOL GOAL RANGE ONE (17:18)
[2019-11-04] MEDS ORDERED: INSULIN REGULAR 250 UNITS in SODIUM CHLORIDE 0.9% 247.5 ML IV SCH (17:30)
[2019-11-04] MEDS ORDERED: INSULIN HUMAN REGULAR IV BOLUS 3 UNITS in SYRINGE 0 ML IV ONE ×2 (17:30→17:45)
[2019-11-04] MEDS ORDERED: INSULIN GLARGINE SOLOSTAR 100 UNITS/ML 3 ML PEN SC SCH (18:00)
[2019-11-04] MEDS: FAMOTIDINE 20 MG TAB PO SCH (20:44)
[2019-11-04] MEDS ORDERED: ATORVASTATIN 40 MG TAB PO SCH (21:00)
[2019-11-05] MEDS: INSULIN ASPART 100 UNITS/ML 3 ML PEN SC SCH ×3 (03:45→12:09)
[2019-11-05 06:19] LABS: Estimated Average Glucose 203 mg/dl; Hemoglobin A1C 8.7 % (4.5-5.6)
[2019-11-05 06:23] LABS: BUN Creatinine Ratio 24.9 (10-20); Calcium 7.1 mg/dl (8.5-10.1); Creatinine Clr Calc Pharmacy 33.3 ml/min; Est GFR (African American) 39.4; Magnesium 2.3 mg/dl (1.8-2.4); Potassium 3.6 mmol/L (3.5-5.1)
[2019-11-05] MEDS ORDERED: POTASSIUM CHLORIDE 20 MEQ TABCR PO STA (08:28)
[2019-11-05] MEDS ORDERED: SODIUM CHLORIDE 0.9% 500 ML IV SCH (08:30)
[2019-11-05] MEDS ORDERED: CALCIUM GLUCONATE 10% 1,000 MG in SODIUM CHLORIDE 0.9% 50 ML IV ONE ×2 (08:45→14:30)
[2019-11-05] MEDS ORDERED: INSULIN GLARGINE SOLOSTAR 100 UNITS/ML 3 ML PEN SC ONE (08:45)
[2019-11-05] MEDS: CHOLECALCIFEROL 1,000 UNITS 25 MCG TAB PO SCH (08:54)
[2019-11-05] MEDS: levETIRAcetam 500 MG TAB PO SCH (08:54)
[2019-11-05] MEDS: FINASTERIDE 5 MG TAB PO SCH (08:54)
[2019-11-05] MEDS: FAMOTIDINE 20 MG TAB PO SCH (08:54)
[2019-11-05] MEDS: TAMSULOSIN HCL 0.4 MG CAP PO SCH (08:54)
[2019-11-05] MEDS: DOCUSATE SODIUM 100 MG CAP PO SCH (08:54)
[2019-11-05] MEDS: AMLODIPINE BESYLATE 5 MG TAB PO SCH (08:54)
[2019-11-05] MEDS: CYANOCOBALAMIN 500 MCG TABLET (VITAMIN B-12) PO SCH (08:55)
[2019-11-05] MEDS ORDERED: METOPROLOL SUCC 50MG EXT REL TAB PO SCH (09:00)
[2019-11-05] MEDS ORDERED: ASPIRIN 81 MG ECTAB PO SCH (09:00)
[2019-11-05] MEDS: HEPARIN SOD 5,000 UNIT/0.5 ML VIAL SQ SCH (09:06)
--- NOTE | 2019-11-05 09:22 | Pharmacy Report ---
Glycemic Control Consultation - Date of Service November 05, 2019 - Scope Scope: Glycemic Pharmacist consulted for glycemic control and to write orders per [facility] inpatient glycemic control protocol. - Objective Weight: 82.2 kg Accuchecks BSG (last 24hrs): 11/04/19 11/04/19 11/04/19 09:05 11:32 11:33 Glucose 321 H* POC Glucose 391 H* 399 H* 11/04/19 11/04/19 11/04/19 13:26 16:31 16:32 Glucose POC Glucose 348 H* 351 H* 348 H* 11/04/19 11/04/19 11/04/19 18:22 19:33 20:38 Glucose POC Glucose 343 H* 194 H 126 H 11/04/19 11/04/19 11/05/19 22:10 23:47 03:42 Glucose POC Glucose 83 73 76 11/05/19 11/05/19 05:08 07:35 Glucose 70 POC Glucose 222 H Laboratory Data (last 24hrs): 11/04/19 11/05/19 09:05 05:08 Potassium 3.8 3.6 Carbon Dioxide 25 28 Anion Gap 11.0 6.0 Creatinine 1.30 1.78 H D Est Cr Clr Drug Dosing 45.6 33.3 Beta-Hydroxybutyric Acd 20.81 H HbA1c: Hemoglobin A1c 8.7 % (4.5-5.6) H 11/05/19 05:08 - Recent Pertinent Medications Outpatient Anti-diabetic Regimen: * Metformin 500 mg PO BIDM * A1c = 8.7% on 11/05/2019 The patient is currently receiving: * Basal insulin: Lantus 8 units SQ AM x 1, 15 units SQ PM x 1 * Correctional Insulin: Novolog Correction per scale ACHS Goal Range: Low 110 mg/dL - High 140 mg/dL Correction Factor: 30 mg/dL/unit * Prandial insulin: Per carb ratio of 1 unit per 10 grams CHO consumed * Oral Agents: on hold while admitted Risk Factors for Insulin Resistance: * Steroids: * Received Dexamethasone 10 mg x 1 on 11/02 & 4 mg x 1 on 11/03 * Diet: * T2DM - Assessment & Plan Assessment & Plan: ASSESSMENT: * 84 yo M admitted secondary to confusion with witnessed seizure upon admission * PMHx significant for Afib, CKD, h/o SAH/IVH * Patient with severe hyperglycemia yesterday likely secondary to dexamethasone use * Fasting BSG was 282 mg/dL yesterday, given 8 units of Lantus and 6 units of Novolog. Lunchtime BSG was 399 mg/dL at which point patient received 5 unit IV insulin bolus. Dinner BSG continued to be elevated so patient started on IV insulin infusion and given 15 units of Lantus with plan for insulin gtt to taper overnight. * Insulin gtt was tapered off overnight and patient was started on novolog with overnight checks ranging 73 - 83 mg/dL * This AM's fasting BSG was elevated at 222 mg/dL, likely related to longer half-life of dexamethasone * Lunchtime BSG was 68 mg/dL, treated with 15 g CHO, will reduce CF and CR PLAN FOR INPATIENT GLYCEMIC CONTROL: * Pt is maintained on oral antidiabetic agents as an outpatient * Oral agents are not recommended for inpatient use d/t drug interactions, changing PO intake, and difficulty titrating for acute hyper/hypoglycemia. ADA recommends re-initiating outpatient oral agents 1-2 days prior to discharge if/when appropriate if they were held on admission. * Will hold oral agents for admission and utilize SQ basal bolus insulin regimen which is the recommended regimen for inpatient glycemic control. * Will initiate weight based insulin dosing for insulin joey patient and titrate based on BSG trends. * Basal insulin * Lantus 20 units SQ x 1 * Bolus insulin * NovoLog per scale ACHS or Q6hrs while NPO * Goal Range: Low 110 mg/dL - High 140 mg/dL * Correction Factor: 30 mg/dL/unit * Nutritional / Prandial insulin per carb ratio of 1 unit per 10 grams CHO consumed * Please note that the plan above was derived based on current level of insulin resistance and hospital stress. These recommendations are appropriate for inpatient admission only. Plan of care upon discharge will need to be reassessed to avoid potential outpatient hypo/hyperglycemia. Thank you.
--- NOTE | 2019-11-05 10:10 | Neurology Progress Note ---
Date of Service November 05, 2019 Assessment & Plan (1) Seizure: (2) History of subarachnoid hemorrhage: (3) History of intraventricular hemorrhage: (4) Generalized weakness: (5) History of stroke: The patient has a history (sometime between October 02 through October 09) of spontaneous subarachnoid hemorrhage in the posterior fossa (perimesencephalic) with extension and layering in the occipital horns bilaterally. He was also discovered to have 2 small infarcts in the left pontine and right cerebellar hemispheric areas. He was felt to have no focal neurologic findings but was weak in general. After a stay at [facility], he was transferred to [facility] and made improvements. Patient returned to the emergency room November 02 with intermittent confusion and had a witnessed generalized tonic-clonic seizure with postictal state in the emergency room. He was given a Keppra 1000 mg loading dose and has been seizure-free since. His mental status is improved and clinically he is doing much better. On neurologic examination today he has some very mild right-sided weakness proximally compared to the left side which I believe is residual from his left pontine stroke. He does have short-term memory issues particularly from medical fax over the last 24 hours and even the last month, but his long- term memory is fairly good. 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 MRI of the brain November 02 showed no acute stroke and moderate old small vessel ischemic changes. There was minimal residual hemorrhage. CT scan showed market improvement in the blood as well. There is some residual blood in the occipital horns but improved compared to October 09. I do not believe there is any new bleeding. MR angiography of the head neck is unremarkable for any significant stenoses or dissection. I reviewed all of these films mentioned in this summary with Dr. Webster. Patient has a history of atrial fibrillation, now off anticoagulation due to recent subarachnoid hemorrhage, which is stable. He has a history of hypertension, dyslipidemia, and type 2 diabetes. His glucose is not very well controlled. This morning, I believe the patient's limb ataxia is improved and his gait is unstable but not ataxic. Recommendations: 1. Control blood pressure as you are doing aiming for a mean arterial pressure between 95 and 100. 2. Lipids are controlled and high-dose statins are contraindicated. 3. Control glucose a meeting for a knee hemoglobin A1c of less than 8. 4. Keep off anticoagulants because of recent subarachnoid hemorrhage. Agree with continuing 81 milligram aspirin tablet daily. 5. Continue levetiracetam 500 mg twice daily for now. 6. I see no indication for EEG or other neurologic testing at this time. Otherwise, I spent a total of 35 minutes with this case including review of records, direct evaluation the patient bedside, and discussion of the case with the patient at bedside, RN at bedside, and Dr. Hampton, including differential diagnosis and treatment options. Subjective Patient has no complaint of headache or pain. He is not dizzy and he does not feel that he is confused. Nursing reports no seizures or seizure activity since admission. BUN and creatinine are elevated but his glucose is improved to 222. He saw Cardiology because of his brief episode of V-tach and background of AFib. Cap Machine Operator felt that the pacemaker was working well. He is tolerating levetiracetam 500 milligrams twice daily fairly well. He is off dexamethasone. Add blood pressure is 107/60. Physical Exam Physical Exam: He is awake and alert. Speech is without obvious aphasia or dysarthria. Mood is reasonable affect is appropriate and he is pleasant and cooperative. Extraocular eye muscles are intact without nystagmus. There is no facial droop. With outstretched arms, there is no drift. There is no tremor. With f [id number] testing there is some slight dysmetria on the right and not on the left. This seems improved compared to yesterday. Heel to suh testing does not show any obvious dysmetria bilaterally. The patient can sit up and does not sway. He can stand on his own but he is a little unstable. Gait is narrow based and very unsteady meeting the assistance of 1. Results & Data Vital Signs (Past 12 Hours) Vital Signs Temp Pulse Pulse Resp BP BP Pulse Ox 11/05/19 07:48 92 H 11/05/19 06:39 36.4 C L 54 L 20 107/60 92 11/05/19 03:15 36.9 C 84 20 114/61 92 11/05/19 00:02 76 11/04/19 22:53 36.7 C 64 18 123/62 94 PG Care Time/CCT Total # of Minutes Spent Total Time Spent with Patient: Total time spent is greater than 50% in coordination of care (as documented) at patient's floor/unit and/or counseling patient: Coding Level of Care Code 39155 Subseq Hosp Care Lvl 3 Diagnoses Seizure R56.9 History of subarachnoid hemorrhage Z86.79 History of intraventricular hemorrhage Z86.79 Generalized weakness R53.1 History of stroke Z86.73
[2019-11-05 13:22] LABS: BUN Creatinine Ratio 26.6 (10-20); Calcium 7.2 mg/dl (8.5-10.1); Creatinine Clr Calc Pharmacy 36.8 ml/min; Est GFR (African American) 44.5; Est GFR (Non-African American) 38.4; Potassium 3.5 mmol/L (3.5-5.1)
--- NOTE | 2019-11-05 17:08 | Discharge Summary ---
Date of Service November 05, 2019 Admission HPI Per Admitting Provider The patient is an 84-year-old male with a past medical history including recent subarachnoid hemorrhage, and intraventricular hemorrhage, CKD stage III, cardiac pacemaker in situ, atrial fibrillation previously on Xarelto, diabetes mellitus type 2, carotid artery stenosis, GERD, ischemic cardiomyopathy, hypertension, hyperlipidemia, sick sinus syndrome and coronary artery disease. He has been seen at [facility] for subarachnoid hemorrhage, his route had been stopped, and after a stay at [place], he was transferred to [facility] rehab, and then returned home on 10/27. His work-up in the ED today, initially consisted of appropriate laboratories, and CT scan of brain without IV contrast, which reported the majority of the hemorrhage seen on 10/09/2019 had been resolved. There was trace recurrent or residual intraventricular blood within the posterior horn of the right lateral ventricle. There was no parenchymal hematoma, midline shift, or evidence of acute territorial ischemia by CT criteria. His case was discussed by the ED with stroke neurology at [place], who suggested the patient get an MRI of the brain. Brain MRI showed no additional information compared to the prior CT evaluation of the brain. there was no evidence for an acute ischemic event. There were the ventricular blood seen previously described on CT was not well seen on MRI. The MRA of the head without contrast showed the major central vasculature with no significant stenosis or aneurysm formation. The extreme peripheral vasculature of both cerebral hemispheres demonstrates moderate arterial occlusive change. MRA of the neck with and without contrast was very limited/near nondiagnostic due to patient motion. Plaque formation seen involving the left carotid system but there was no significant left-sided stenosis. Artifact versus potential thrombus and associated small dissection of the proximal right ICA. The 2 cannot be adequately differentiated by this MRI. A repeat CTA of the neck carotid vasculature is suggested. Discussion with the patient's significant other reports that the patient is a DNR/DNI, and would not want any other significant intervention done. The patient will therefore be admitted to telemetry for further observation. Principal Diagnosis Seizure, hypocalcemia, hypomagnesemia Discharge Exam Constitutional WD/WN, vitals as above Eyes PERRL, conjunctivae normal, anicteric sclerae ENMT external ear and nose normal, oropharynx normal Neck trachea midline, no thyromegaly Respiratory normal respiratory effort, lungs clear to auscultation Cardiovascular RRR, no murmur, no edema Rate/Rhythm: regular rate and + irregularly irregular Heart Sounds: no murmur Extremities: no edema Chest (Breasts) Chest: + pacemaker Gastrointestinal (Abdomen) normal bowel sounds, soft, nontender, no hepatosplenomegaly Musculoskeletal Extremities: extremities normal to inspection; no cyanosis and no clubbing Skin no rashes, warm and dry Neurologic moves all extremities and awake; no focal motor deficits Psychiatric A+Ox3, euthymic affect Lymphatic no lymphedema Discharge Data Allergies Allergy/AdvReac Type Severity Reaction Status Date / Time No Known Drug Allergies Allergy Verified 11/03/19 11:16 Consultations 11/03/19 14:58 ED Decision to Admit Stat 11/03/19 23:42 Consult Case Management - Discharge Planning Routine 11/04/19 03:24 Consult Neurology Routine 11/04/19 14:14 Consult Cardiology Routine Ordered Studies 11/03/19 11:19 CT head/brain wo con Stat 11/03/19 15:30 MR brain wo/w con Stat 11/03/19 16:50 MR angio head wo con Stat MR angio neck wo/w con Stat CXR Hospital Course (1) Seizure: Brought to hospital due to increased confusion at home, then subsequently had a witnessed generalized seizure in the ER. Had a very recent hospitalization at [place] for spontaneous SAH and Rt cerebellar and left pontine ischemic CVAs In ER, he was given IV ativan and loaded with Keppra 1500 mg IV, then became somewhat lethargic followed by combativeness and post-ictal period in ER CT head initially showed a question of residual vs recurrent intraventricular hemorrhage Subsequent MRI brain, MRA Head/Neck showed NO new stroke and no significant stenosis. Initial question of artifact vs carotid artery dissection but review with Neuro and Radiology today confirm no dissection Now mental status much improved. Neuro consult appreciated -seizure likely secondary to recent ICH and CVA, but could be from severe hypocalcemia -Converted IV Keppra to po 500 mg q12 and will continue on this after discharge -f/u with Neuro after discharge as scheduled at [place] -dcd IV Decadron started on admission -no need for any further imaging or EEG as per Neuro -continue Seizure precautions. -will ensure no driving and form submitted to DM[employer] recommending as such (2) Hypomagnesemia: Magnesium level was 0.4 upon admission. He received 2 g magnesium sulfate IV by the ED and repeat Mag still only 0.4 Unclear etiology but has been on PPI he states for 30 years which may be contributing. Also has severe hypocalcemia which is also likely contributing Then received an additional 4 g IV, and now Mag up to 2.5 -follow BMP, Mag level as outpatient in 1 week -remain on po Magnesium replacement and OFF the PPI on discharge (3) Hypocalcemia: severe hypocalcemia on admission may have led to seizure -replaced with IV calcium 1000mg x 2 doses -restart po calcium supplement he has at home -check iPTH, Vit D levels--> pending at time of discharge -check BMP with Ca++ level,and Magnesium levels in 1 week as outpt Follow up with PCP (4) History of subarachnoid hemorrhage: Imaging on admission does not demonstrate any additional bleeding and in fact is much improved from previous (5) History of intraventricular hemorrhage: Small amount of residual hematoma noted on CT as above (6) Ventricular tachycardia: With 15 beat run of NSVT, asymptomatic on AM of 11/03 -with a h/o reduced EF but most recent LVEF 50% in 09/2019 at [place] -metoprolol was held on admission for AMS-->was then restarted and had no additional VT -has pacer but not ICD--> Consult Cardio--> no indication for ICD at this time Pacer interrogated and no other concerning arrhythmias noted -replace lytes as needed -f/u with Cardio routinely as outpt (7) Diabetes mellitus, type II: Restarted ADA diet With severe hyperglycemia here secondary to corticosteroids started initially for suspected recurrent bleed due to seizure -dcd Decadron -added Lantus and Novolog and then was briefly on insulin gtt--> tapered off and much improved prior to discharge -would expect glucose to be improved at home now that off steroids, no insulin needed on discharge Last HgbA1C 10% in 09/2019 and was recently started on metformin with glimiperide dcd at [place] 2 weeks ago -holding metformin from home due to contrast given for imaging and preforms laminator slight rise--> can restart metformin on discharge and watch renal function closely -HgbA1C here now improved already down to 8.7% -f/u with PCP as outpt (8) CKD (chronic kidney disease): With Acute renal failure on admission with creatinine 1.54, with follow-up after hydration 1.21, with previous range 1.37-2.00 in the recent past may have been secondary to starting Entresto on 10/03/19 Now increased here due to dehydration from hyperglycemia but improved down to 1.6 by discharge time. Is making urine and feeling well -follow BMP as outpt in 1 week (9) Cardiac pacemaker in situ: for SSS (10) Atrial fibrillation: Anticoagulation on hold due to previous subarachnoid and intraventricular hemorrhage -continue metoprolol but change to Toprol XL which was his original medication for his cardiomyopathy (11) GERD (gastroesophageal reflux disease): Dc p.o. Nexium due to hypomagnesemia. -start Famotidine 20 mg po bid (12) Carotid artery stenosis: MRA of neck was limited, and possible dissection, but Neuro review with Radiology points towards no dissection -continue ASA, statin (13) History of stroke: With right cerebellar and left pontine ischemic CVAs in 09/2019, possibly cardioembolic although was on Xarelto at the time. Occurred simultaneously with spontaneous SAH--> possibly hypertensive bleed and then vasospasm causing ischemic CVAs? -continue ASA 81mg daily -continue statin -continue BP control and needs improved BP control -is currently OFF his Xarelto due to recent SAH and this may be restarted once cleared by Neuro at [place] at follow up visit in 1-2 weeks (14) Ischemic cardiomyopathy: never got put back on ACEi/ARB /Entresto or lasix or Toprol XL after hospitalization at [facility] EF 50% at [place] recently but worse here prior to that -converted metoprolol tartrate to previous Toprol XL 100mg daily in the AM -eventually restart ACEi as an outpt with Cardio once renal function stabilizes -Entresto started a few weeks ago briefly but had UZMA, and then admitted for CVA and SAH and was discontinued (15) Hypertension: BPs not well controlled overall initially likely from decadron but then improved prior to dc -restarted all home BP meds and changed to Toprol XL as above (16) Sick sinus syndrome: with PPM as above (17) Coronary artery disease: with h/o remote stent placement -continue ASA, statin, beta neno Recent Nuc Stress 09/2019 completed for [facility] and was neg for inducible ischemia (18) BPH NOS w ur obs/LUTS: -continue home FLomax and finasteride Had urinary retention at last hospitalization, now improved (19) DVT prophylaxis: SQ heparin Dispo-stable for dc to home with home health and 05/03 care Total Time Total Time Spent Total Time Spent (In Minutes): 45 min Total Time Includes: Examination of the Patient, Discharge Planning, Medication Reconciliation and Communication With Other Providers (Neurology) Discharge Plan Discharge Items Patient Disposition: Home - Home Health Services Reason For Visit: SEIZURE ACTIVITY,HYPOMAGNESEMIA Discharge Diagnosis: Seizure, Altered mental status from seizure, hypomagnesemia, hypocalcemia, Diabetes with severe hyperglycemia Condition on Discharge: Fair Activity: As commented below Lifting: Gradually increase as tolerated Bathing: No limitations Exercise/Sports: Gradually increase as tolerated Exercise Comment: with rolling walker, home PT/OT Driving/Machine Use: No driving for 6 months Weightbearing: Full weightbearing Non-emergency contact: Primary Care Provider, [facility] Manager and Neurologist Call non-emergency contact if: you have any medication questions and your symptoms worsen Follow-up/Referrals: Garcia Simms, DO [Primary Care Provider] - (Please follow up within 2 weeks.) Diet: Carb Consistent or DM2 and Heart Healthy Addtl Attending Provider Instructions: You were admitted with confusion and then had a seizure in the ER. Your seizure may be due to your recent bleeding in the brain and stroke, but may have also been due to your low calcium and magnesium levels. You were started on an anti-seizure medication called Keppra to be taken twice a day. 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 Your magnesium levels may be low due to taking Nexium for many years. Please STOP taking Nexium and take Pepcid instead for heartburn. You should restart your home calcium supplement you had from previous. Please have your blood work checked on Sunday to see if your magnesium and calcium levels are remaining in the normal range. Your metoprolol tartrate was changed back to your original once daily long acting metoprolol succinate 100mg daily. You also had some high blood sugars due to the IV steroids you received upon admission--> these improved prior to discharge. Please check your blood sugar at home before each meal and at bedtime and you can restart your metformin tomorrow. You had some kidney failure from dehydration that was improving with IV fluid hydration. Please have your blood work repeated on Sunday to check your kidney function. Please keep your previously scheduled appointments with your Neurologist at [place] and with Cardiology at [facility]. Pending Studies at Discharge: Yes (intact Parathyroid hormone, Vit D level) Studies:: Your PCP can follow up on the results of these pending studies at your follow up visit. Stand-Alone Forms: My [facility] Medications and DC Order Prescriptions: New metoprolol succinate 100 mg tablet extended release 24 hr 100 mg PO DAILY Qty: 30 RF: 0 levetiracetam [Keppra] 500 mg Tablet 500 mg PO BID Qty: 60 RF: 0 famotidine 20 mg Tablet 20 mg PO BID Qty: 60 RF: 0 calcium carbonate [Calcium 500] 500 mg calcium (1,250 mg) tablet 500 mg PO BID Qty: 60 RF: 0 magnesium chloride 64 mg tablet,delayed release (DR/EC) 64 mg PO DAILY Qty: 30 RF: 0 Continued nitroglycerin 0.4 mg tablet, sublingual 0.4 mg SL Q5M PRN (Reason: Chest Pain) RF: 0 amlodipine 10 mg tablet 10 mg PO QAM RF: 0 docusate sodium 100 mg capsule 100 mg PO BID RF: 0 bisacodyl 10 mg suppository 10 mg IN DAILY PRN (Reason: constipation) RF: 0 glucagon HCl 1 mg recon soln 1 mg SQ Q20M PRN (Reason: hypoglycemia) RF: 0 polyethylene glycol 3350 [Miralax] 17 gram/dose powder 17 gm PO DAILY PRN (Reason: constipation) RF: 0 tamsulosin 0.4 mg capsule 0.4 mg PO QAM RF: 0 metformin 500 mg tablet 500 mg PO BIDM RF: 0 cholecalciferol (vitamin D3) 25 mcg (1,000 unit) capsule 1,000 units PO QAM RF: 0 cyanocobalamin (vitamin B-12) 1,000 mcg capsule 1,000 mcg PO QAM RF: 0 acetaminophen [Tylenol] 325 mg Tablet 325 mg PO QID PRN (Reason: Pain) RF: 0 finasteride 5 mg tablet 5 mg PO QAM RF: 0 atorvastatin 40 mg tablet 40 mg PO HS RF: 0 aspirin [Aspirin Low Dose] 81 mg Tablet,Delayed Release (Dr/Ec) 81 mg PO DAILY RF: 0 Discontinued metoprolol tartrate 25 mg tablet 25 mg PO BID RF: 0 furosemide [Lasix] 40 mg tablet 40 mg PO QAM RF: 0 esomeprazole magnesium [Nexium] 40 mg capsule,delayed release(DR/EC) 40 mg PO QAM RF: 0 Discharge Orders: Discharge Order (Routine); Ordered 11/05/19 Ordered By: Nancy Hampton Admission Data Admit Date/Time: 11/03/19 22:20 Attending Provider: Nancy Hampton Admit Provider: Maksim Espinoza Primary Care Provider: Garcia Simms Other Providers: Earl Ag Emile Pierre III Other Interventions: Discharge Summary Assessment (RN) Last Done: 11/05/19 13:56 DC Date/Time DO NOT enter until pt leaves facility: 11/05/19 17:47 Coding Level of Care Code D/C Day Management >30 mins Diagnoses Seizure R56.9 Hypomagnesemia E83.42 Hypocalcemia E83.51 History of subarachnoid hemorrhage Z86.79 History of intraventricular hemorrhage Z86.79 Ventricular tachycardia I47.2 Diabetes mellitus, type II E11.9 CKD (chronic kidney disease) N18.9 Cardiac pacemaker in situ Z95.0 Atrial fibrillation I48.91 GERD (gastroesophageal reflux disease) K21.9 Carotid artery stenosis I65.29 History of stroke Z86.73 Ischemic cardiomyopathy I25.5 Hypertension I10 Sick sinus syndrome I49.5 Coronary artery disease I25.10 BPH NOS w ur obs/LUTS N40.1 DVT prophylaxis Z29.9
== END 2019-11-05 17:47 | disposition home health service (06) | DRG 101 ==
LOC: ED 10:53 → SUATTDRO 22:20 → 2W 22:20

== ENCOUNTER 2022-01-20 11:26 | Inpatient (IN) ==
[2022-01-20] MEDS ORDERED: LORazepam 2 MG/1 ML VIAL ONE ×2 (12:14→13:54)
--- NOTE | 2022-01-20 12:14 | Emergency Department Note ---
History of Present Illness General Chief complaint: Altered Mental Status Time Seen by Provider: 01/20/22 11:54 Source: EMS and RN notes reviewed Mode of arrival: EMS Limitations: altered mental status History of Present Illness Provider complaint: Altered Mental status This is an 86-year-old female presents emergency department via EMS due to concern for 3 to 4 days of altered mental status. EMS reports patient has had difficulty controlling bowels and was has been having frequent bowel movements. He has had difficulty walking in addition, no reported falls. Patient nonverbal at this time. Patient does have a prior history of CVA. Pt seen during a time of high acuity and national emergency pandemic while wearing PPE. Home Medications Medication Instructions Recorded Confirmed Type nitroglycerin 0.4 mg sublingual 0.4 mg SL Q5M PRN tab 06/30/19 01/20/22 History tablet cholecalciferol (vitamin D3) 25 1,000 units PO QAM cap 10/22/19 01/20/22 History mcg (1,000 unit) capsule acetaminophen 325 mg tablet 325 mg PO QID PRN 11/03/19 01/20/22 History (Tylenol) metformin 500 mg tablet 500 mg PO BIDM #180 tab 10/26/20 01/20/22 Rx famotidine 20 mg tablet 20 mg PO BID #180 tab 06/14/21 01/20/22 Rx metoprolol succinate 100 mg 100 mg PO QAM 08/01/21 01/20/22 History tablet,extended release 24 hr atorvastatin 40 mg tablet 40 mg PO HS #90 tab 11/18/21 01/20/22 Rx amlodipine 10 mg tablet 10 mg PO QAM #90 tab 11/24/21 01/20/22 Rx levetiracetam 500 mg tablet 500 mg PO BID #180 tab 11/24/21 01/20/22 Rx (Keppra) furosemide 20 mg tablet 20 mg PO QAM 01/20/22 01/20/22 History Allergies Allergy/AdvReac Type Severity Reaction Status Date / Time No Known Drug Allergies Allergy Verified 01/20/22 13:31 Past Med/Surg History Medical History Arthritis Atrial fibrillation ? DETAILS BPH (benign prostatic hyperplasia) Carotid artery stenosis CKD (chronic kidney disease), stage III Coronary artery disease s/p stent 2008 Diabetes mellitus, type II Diverticulosis GERD (gastroesophageal reflux disease) History of anesthesia reaction SLOW TO WAKE UP History of skin cancer History of stroke 10/2019 [facility] [place] [facility] History of subarachnoid hemorrhage 10/2019 [facility] [place] [facility] Hyperlipidemia Hypertension Ischemic cardiomyopathy Poor historian WITH CONFUSION Premature ventricular contractions Presence of Watchman left atrial appendage closure device (~08/2020) IMPLANTED 2019 >FOLLOWS WITH PSU TAMMY/DR. POWERS Seizure ONLY ONE EPISODE>10/2019 Sick sinus syndrome Ventricular tachycardia Surgical History History of heart artery stent 2009 STENT x 4 History of right cataract surgery 04/04/21 [facility] [place] S/P cardiac pacemaker procedure IMPLANTED 4 YEARS AGO/[place]. 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 Business Development 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 Required: No Beliefs That Will Affect Care: None marital status: Life Partner Current Living Situation: Family current occupational status: retired 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 Unobtainable due to cognitive status Physical Exam Vital Signs Vital Signs - 24 hr 01/20/22 11:26 01/20/22 11:34 01/20/22 12:00 Temperature 36.7 C Temperature Source Oral Pulse Rate 58 L 59 L 52 L Pulse Rate [Apical] Pulse Rate from SpO2 Sensor 54 L 52 L Pulse Rhythm Respiratory Rate 17 13 12 Respiratory Effort / Characteristics Non-Labored Respiratory Depth Normal Respiratory Pattern Regular Blood Pressure 172/77 H Blood Pressure [Right Arm] Blood Pressure Mean 108 Blood Pressure Mean [Right Arm] Pulse Oximetry 97 98 98 Oxygen Delivery Method Room Air Sepsis Recent Fever Within 48 Hours No Sepsis New/Unexplained Change in Mental Status N/A Sepsis Action Taken by Nursing No Action Required 01/20/22 12:09 01/20/22 12:30 01/20/22 12:39 Temperature Temperature Source Pulse Rate 58 L 60 Pulse Rate [Apical] Pulse Rate from SpO2 Sensor Pulse Rhythm Regular Respiratory Rate 17 20 12 Respiratory Effort / Characteristics Non-Labored Non-Labored Respiratory Depth Respiratory Pattern Blood Pressure Blood Pressure [Right Arm] Blood Pressure Mean Blood Pressure Mean [Right Arm] Pulse Oximetry 97 95 Oxygen Delivery Method Room Air Room Air Sepsis Recent Fever Within 48 Hours Sepsis New/Unexplained Change in Mental Status Sepsis Action Taken by Nursing 01/20/22 13:09 01/20/22 13:22 01/20/22 13:23 Temperature Temperature Source Pulse Rate 54 L 59 L Pulse Rate [Apical] Pulse Rate from SpO2 Sensor 67 60 Pulse Rhythm Respiratory Rate 12 20 16 Respiratory Effort / Characteristics Non-Labored Respiratory Depth Respiratory Pattern Blood Pressure 154/59 H Blood Pressure [Right Arm] Blood Pressure Mean 90 Blood Pressure Mean [Right Arm] Pulse Oximetry 95 97 96 Oxygen Delivery Method Room Air Sepsis Recent Fever Within 48 Hours Sepsis New/Unexplained Change in Mental Status Sepsis Action Taken by Nursing 01/20/22 13:25 01/20/22 13:30 01/20/22 13:39 Temperature Temperature Source Pulse Rate 54 L Pulse Rate [Apical] 58 L Pulse Rate from SpO2 Sensor 55 L Pulse Rhythm Respiratory Rate 17 12 12 Respiratory Effort / Characteristics Non-Labored Respiratory Depth Respiratory Pattern Blood Pressure Blood Pressure [Right Arm] 154/59 H Blood Pressure Mean Blood Pressure Mean [Right Arm] 90 Pulse Oximetry 95 95 95 Oxygen Delivery Method Room Air Room Air Sepsis Recent Fever Within 48 Hours Sepsis New/Unexplained Change in Mental Status Sepsis Action Taken by Nursing 01/20/22 14:00 01/20/22 14:01 Temperature Temperature Source Pulse Rate 60 Pulse Rate [Apical] Pulse Rate from SpO2 Sensor 62 Pulse Rhythm Respiratory Rate 12 13 Respiratory Effort / Characteristics Non-Labored Respiratory Depth Respiratory Pattern Blood Pressure 142/64 H Blood Pressure [Right Arm] Blood Pressure Mean 90 Blood Pressure Mean [Right Arm] Pulse Oximetry 95 99 Oxygen Delivery Method Room Air Room Air Sepsis Recent Fever Within 48 Hours Sepsis New/Unexplained Change in Mental Status Sepsis Action Taken by Nursing GENERAL: alert, unwell appearing, well nourished, no distress, non-toxic EYE EXAM: normal conjunctiva, PERRL and EOM's grossly intact OROPHARYNX: no exudate, no erythema, lips, buccal mucosa, and tongue normal and mucous membranes are moist NECK: supple, no nuchal rigidity, no adenopathy, non-tender LUNGS: Clear to auscultation. Normal chest wall mechanics, no w/r/r HEART: no murmurs, S1 normal and S2 normal ABDOMEN: abdomen soft, non-tender, normo-active bowel sounds, no masses, no rebound or guarding. BACK: Back is symmetrical on inspection and there is no deformity, no midline tenderness, no CVA tenderness. SKIN: no rashes and no bruising UPPER EXTREMITIES: upper extremities are grossly normal. FROM, nml pulses b/l. LOWER EXTREMITIES: No pitting edema. FROM, nml pulses b/l. NEURO EXAM: altered mentation, cranial nerves II-XII grossly intact, nonverbal, will not follow commands Course Course 1215: I was called urgently to the pt's room by nursing staff bc he was seizing. Upon entering, she had stopped seizing, was alert, we try to speak but had expressive aphasia. Patient appeared to be moving all extremities. 1345: Pt mumbles. Recurrent seizure. 1352: Attempted to contact friend, Amaya. No answer and no voicemail. Contacted Rudy, son. States he is the POA and trustee of his will. DNR/DNI. States he would not want any aggressive interventions or surgery. Like patient kept here if possible and made comfortable as they know that there is risk he could deteriorate from this new finding. Administered Medications Levetiracetam 750 mg/ Sodium (Chloride) 107.5 mls @ 430 mls/hr IV Q12H JOANN Stop: 02/20/22 01:59 Last Infusion: 01/21/22 15:16 Dose: 0 mls/hr Documented by: [id number] Admin: 01/21/22 14:55 Dose: 430 mls/hr Documented by: [id number] Infusion: 01/21/22 02:10 Dose: 0 mls/hr Documented by: [id number] Admin: 01/21/22 01:53 Dose: 430 mls/hr Documented by: [id number] Sodium Chloride (Nss 1000ml) 1,000 mls @ 100 mls/hr IV .Q10H JOANN Stop: 02/19/22 16:15 Last Admin: 01/21/22 14:33 Dose: 100 mls/hr Documented by: [id number] Infusion: 01/21/22 13:28 Dose: 100 mls/hr Documented by: [id number] Admin: 01/21/22 03:28 Dose: 100 mls/hr Documented by: [id number] Infusion: 01/21/22 03:28 Dose: 100 mls/hr Documented by: [id number] Admin: 01/20/22 17:28 Dose: 100 mls/hr Documented by: [id number] Nimodipine (Nimodipine 30 Mg Cap) 30 mg PO Q4 JOANN Stop: 02/20/22 19:59 Last Admin: 01/21/22 20:29 Dose: 30 mg Documented by: [id number] Discontinued Medications Sodium Chloride (Nss 1000ml) 1,000 mls @ 125 mls/hr IV .Q8H JOANN Stop: 02/19/22 12:14 Last Infusion: 01/20/22 17:26 Dose: 0 mls/hr Documented by: [id number] Admin: 01/20/22 13:24 Dose: 125 mls/hr Documented by: [id number] Magnesium Sulfate/Dextrose (Magnesium Sulfate / D5w) 1 gm in 100 mls @ 100 mls/hr IV Q1H JOANN Stop: 01/20/22 14:40 Last Infusion: 01/20/22 15:48 Dose: 0 mls/hr Documented by: [id number] Admin: 01/20/22 14:40 Dose: 100 mls/hr Documented by: [id number] Infusion: 01/20/22 14:22 Dose: 0 mls/hr Documented by: [id number] Admin: 01/20/22 13:25 Dose: 100 mls/hr Documented by: [id number] Levetiracetam 1,000 mg/ Sodium (Chloride) 110 mls @ 440 mls/hr IV NOW STA Stop: 01/20/22 14:14 Last Infusion: 01/20/22 14:40 Dose: 0 mls/hr Documented by: [id number] Admin: 01/20/22 14:22 Dose: 440 mls/hr Documented by: [id number] Ioversol (Optiray 320 100ml) 94 ml IV ONCE ONE Stop: 01/20/22 13:20 Last Admin: 01/20/22 13:20 Dose: 94 ml Documented by: [id number] Lorazepam (Lorazepam 2 Mg/1 Ml Vial) Confirm Administered Dose 2 mg .ROUTE .STK- MED ONE Stop: 01/20/22 12:15 Last Admin: 01/20/22 13:24 Dose: Not Given Documented by: [id number] Lorazepam (Lorazepam 2 Mg/1 Ml Vial) Confirm Administered Dose 2 mg .ROUTE .STK- MED ONE Stop: 01/20/22 13:55 Last Admin: 01/20/22 13:55 Dose: 1 mg Documented by: [id number] Nimodipine (Nimodipine 30 Mg Cap) 30 mg PO ONE ONE Stop: 01/21/22 16:22 Last Admin: 01/21/22 17:26 Dose: 30 mg Documented by: [id number] Medical Decision Making Differential Diagnosis Differential diagnoses includes but is not limited to toxic, metabolic, infectious, traumatic, cardiac, neurologic, hematologic, psychiatric and inflammatory etiologies. Medical Records Attestation: I reviewed the patient's medical records. Home Medications Current Medication List: was personally reviewed by me Laboratory Data Attestation: I reviewed the patient's lab results. Result diagrams: 01/21/22 05:26 01/21/22 05:26 Lab Results 01/20/22 01/20/22 01/20/22 Range/Units 11:35 11:35 11:35 WBC 9.61 (4.8-10.8) K/uL RBC 4.39 L (4.7-6.1) M/uL Hgb 13.0 L (14.0-18.0) g/dL Hct 37.7 L (42-52) % MCV 85.9 (80-100) fL MCH 29.6 (25-34) pg MCHC 34.5 (32-36) g/dL RDW Std Deviation 43.4 (36.4-46.3) fL RDW Coeff of Crispin 13.7 (11.5-14.5) % Plt Count 203 (130-400) K/uL MPV 9.5 (7.4-10.4) fL Immature Gran % (Auto) 0.3 % Neut % (Auto) 65.7 % Lymph % (Auto) 21.4 % [place] % (Auto) 10.0 % Eos % (Auto) 2.4 % Baso % (Auto) 0.2 % Neut # (Auto) 6.31 (1.4-6.5) K/uL Lymph # (Auto) 2.06 (1.2-3.4) K/uL [place] # (Auto) 0.96 H (0.11-0.59) K/uL Eos # (Auto) 0.23 (0-0.5) K/uL Baso # (Auto) 0.02 (0-0.2) K/uL Immature Gran # (Auto) 0.03 H (0.00-0.02) K/uL PT 11.9 (9.0-12.0) Seconds INR 1.1 (0.9-1.1) Sodium (136-145) mmol/L Potassium (3.5-5.1) mmol/L Chloride (98-107) mmol/L Carbon Dioxide (21-32) mmol/L Anion Gap (3-11) BUN (6-23) mg/dl Creatinine (0.6-1.4) mg/dl Est Cr Clr Drug Dosing ml/min Est GFR ( Amer) ml/min Est GFR (Non-Af Amer) ml/min BUN/Creatinine Ratio (10-20) Glucose (70-99(Fasting)) mg/dl Lactate (0.4-2.0) mmol/L Calcium (8.5-10.1) mg/dl Phosphorus (2.5-4.9) mg/dl Magnesium (1.7-2.4) mg/dl Total Bilirubin (0.2-1.0) mg/dl AST (13-39) U/L ALT (7-52) U/L Alkaline Phosphatase (34-104) U/L Troponin I High Sens (0-20) pg/ml Total Protein (6.0-8.3) gm/dl Albumin (3.4-5.0) gm/dl Globulin (2.5-4.0) gm/dl Albumin/Globulin Ratio (0.9-2) Procalcitonin 0.05 (0-0.5) ng/ml SARS-CoV-2 (PCR) (Negative) Influenza Type A (PCR) (Neg) Influenza Type B (PCR) (Neg) RSV (RT-PCR) (Neg) 01/20/22 01/20/22 01/20/22 Range/Units 11:35 11:35 12:36 WBC (4.8-10.8) K/uL RBC (4.7-6.1) M/uL Hgb (14.0-18.0) g/dL Hct (42-52) % MCV (80-100) fL MCH (25-34) pg MCHC (32-36) g/dL RDW Std Deviation (36.4-46.3) fL RDW Coeff of Crispin (11.5-14.5) % Plt Count (130-400) K/uL MPV (7.4-10.4) fL Immature Gran % (Auto) % Neut % (Auto) % Lymph % (Auto) % [place] % (Auto) % Eos % (Auto) % Baso % (Auto) % Neut # (Auto) (1.4-6.5) K/uL Lymph # (Auto) (1.2-3.4) K/uL [place] # (Auto) (0.11-0.59) K/uL Eos # (Auto) (0-0.5) K/uL Baso # (Auto) (0-0.2) K/uL Immature Gran # (Auto) (0.00-0.02) K/uL PT (9.0-12.0) Seconds INR (0.9-1.1) Sodium 137 (136-145) mmol/L Potassium 3.7 (3.5-5.1) mmol/L Chloride 99 (98-107) mmol/L Carbon Dioxide 26 (21-32) mmol/L Anion Gap 12 H (3-11) BUN 23 (6-23) mg/dl Creatinine 1.62 H (0.6-1.4) mg/dl Est Cr Clr Drug Dosing 33.2 ml/min Est GFR ( Amer) 43.6 ml/min Est GFR (Non-Af Amer) 37.6 ml/min BUN/Creatinine Ratio 14.2 (10-20) Glucose 142 H (70-99(Fasting)) mg/dl Lactate 2.3 H* (0.4-2.0) mmol/L Calcium 9.2 (8.5-10.1) mg/dl Phosphorus 3.9 Cancelled (2.5-4.9) mg/dl Magnesium 1.2 L (1.7-2.4) mg/dl Total Bilirubin 1.5 H (0.2-1.0) mg/dl AST 17 (13-39) U/L ALT 9 (7-52) U/L Alkaline Phosphatase 97 (34-104) U/L Troponin I High Sens 45.7 H (0-20) pg/ml Total Protein 8.0 (6.0-8.3) gm/dl Albumin 4.5 (3.4-5.0) gm/dl Globulin 3.5 (2.5-4.0) gm/dl Albumin/Globulin Ratio 1.3 (0.9-2) Procalcitonin (0-0.5) ng/ml SARS-CoV-2 (PCR) (Negative) Influenza Type A (PCR) (Neg) Influenza Type B (PCR) (Neg) RSV (RT-PCR) (Neg) 01/20/22 01/20/22 Range/Units 13:26 14:33 WBC (4.8-10.8) K/uL RBC (4.7-6.1) M/uL Hgb (14.0-18.0) g/dL Hct (42-52) % MCV (80-100) fL MCH (25-34) pg MCHC (32-36) g/dL RDW Std Deviation (36.4-46.3) fL RDW Coeff of Crispin (11.5-14.5) % Plt Count (130-400) K/uL MPV (7.4-10.4) fL Immature Gran % (Auto) % Neut % (Auto) % Lymph % (Auto) % [place] % (Auto) % Eos % (Auto) % Baso % (Auto) % Neut # (Auto) (1.4-6.5) K/uL Lymph # (Auto) (1.2-3.4) K/uL [place] # (Auto) (0.11-0.59) K/uL Eos # (Auto) (0-0.5) K/uL Baso # (Auto) (0-0.2) K/uL Immature Gran # (Auto) (0.00-0.02) K/uL PT (9.0-12.0) Seconds INR (0.9-1.1) Sodium (136-145) mmol/L Potassium (3.5-5.1) mmol/L Chloride (98-107) mmol/L Carbon Dioxide (21-32) mmol/L Anion Gap (3-11) BUN (6-23) mg/dl Creatinine (0.6-1.4) mg/dl Est Cr Clr Drug Dosing ml/min Est GFR ( Amer) ml/min Est GFR (Non-Af Amer) ml/min BUN/Creatinine Ratio (10-20) Glucose (70-99(Fasting)) mg/dl Lactate 5.2 H* (0.4-2.0) mmol/L Calcium (8.5-10.1) mg/dl Phosphorus (2.5-4.9) mg/dl Magnesium (1.7-2.4) mg/dl Total Bilirubin (0.2-1.0) mg/dl AST (13-39) U/L ALT (7-52) U/L Alkaline Phosphatase (34-104) U/L Troponin I High Sens (0-20) pg/ml Total Protein (6.0-8.3) gm/dl Albumin (3.4-5.0) gm/dl Globulin (2.5-4.0) gm/dl Albumin/Globulin Ratio (0.9-2) Procalcitonin (0-0.5) ng/ml SARS-CoV-2 (PCR) NEGATIVE (Negative) Influenza Type A (PCR) Negative (Neg) Influenza Type B (PCR) Negative (Neg) RSV (RT-PCR) Negative (Neg) Imaging Data Radiologist's Impression: Abdomen/Pelvis CT 01/20/22 12:08 CT abd pelvis IV con only CLINICAL HISTORY: diarrhea, ams COMPARISON STUDY: No previous studies for comparison. CT DOSE: 1107.75 mGycm TECHNIQUE: Standard CT of the Abdomen and Pelvis was performed with IV contrast. A dose lowering technique was utilized adhering to the principles of ALARA. Contrast Volume: Optiray 320, 94 ml. The patient did not receive oral contrast. FINDINGS: Lung base: The lung bases are clear. There is moderate cardiomegaly with cardiac pacer in place. Abdominal cavity: There is no evidence for abdominal mass, adenopathy or ascites. Liver: There is homogeneous attenuation of the liver parenchyma. There is no evidence for enhancing mass lesion. Spleen: There is homogeneous attenuation of the splenic parenchyma. There is no enhancing mass lesion. Pancreas: There is homogeneous attenuation of the pancreatic parenchyma. There is no evidence for mass lesion or peripancreatic fluid collection. Gall Bladder: The gallbladder is well distended with no evidence for intraluminal calculi, wall thickening or pericholecystic edema. Adrenal glands: The adrenal glands are normal in size and attenuation. There is no evidence for enhancing mass lesion. Kidneys: There is a horseshoe kidney present. There is no evidence for renal calculus or hydronephrosis. There is no evidence for enhancing mass. Bowel: The bowel loops are normally placed within the abdomen and pelvis without evidence for dilatation or obstruction. There is no evidence for mass lesion. There is extensive sigmoid diverticulosis without evidence for diverticulitis. No significant fluid is seen within the colon. There are no inflammatory changes present. There is no evidence for free air. Bladder: The bladder is distended with an abnormal thin pleural line extending along the right lateral wall. The presence of an underlying mass cannot be exc luded. This is best seen on image 392. There is also impingement upon the floor the bladder related to an enlarged prostate. : There is no evidence for pelvic mass or adenopathy. There is no evidence for pelvic ascites. The prostate is mildly enlarged. Vasculature: There is no evidence for aneurysmal dilatation of the abdominal aorta. Extensive atherosclerotic calcification is present. Osseous structures: Degenerative changes are seen within the spine. IMPRESSION: 1. Extensive sigmoid diverticulosis without evidence for diverticulitis. 2. No fluid levels within the colon. 3. Suspicion of a mass involving the lateral wall of the bladder on the right. Follow-up is necessary. 4. Incidental note of a horseshoe kidney. 5. Additional nonacute findings are delineated above. ACT 112: Negative or not required by law. Electronically signed by: Suman Mcwilliams M.D. 01/20/2022 1:[address] 01/20/22 12:08 CT head/brain wo con CLINICAL HISTORY: 86 years-old Male with ams. Acute altered mental status TECHNIQUE: Multiple axial CT images of the head were obtained without contrast. A dose lowering technique was utilized adhering to the principles of ALARA. CT DOSE: 1041.13 mGy.cm COMPARISON: Head CT 05/13/2020 FINDINGS: There is a subtle linear area of increased attenuation involving the left parietal lobe on image 163 of series 301. There is no midline shift, intracranial mass, hydrocephalus, or acute territorial infarct. Age-related involutional changes with ex vacuo ventriculomegaly. White matter hypodensities suggest chronic microvascular ischemic disease. Chronic right cerebellar infarct. The calvarium is intact. Prior bilateral lens replacement. The paranasal sinuses, mastoid air cells, and middle ear cavities are clear. IMPRESSION: 1. Findings suggestive of subtle acute subarachnoid hemorrhage of the left parietal lobe. A 24-hour follow-up head CT is recommended. 2. No midline shift. 3. Involutional changes with chronic microvascular ischemic disease. Findings were discussed with Dr. Higgins on 01/20/2022 12:55 PM. ACT 112: Negative or not required by law. The above report was generated using voice recognition software. It may contain grammatical, syntax or spelling errors. Electronically signed by: Elder Spann M.D. 01/20/2022 12:56 PM Chest X-Ray 01/20/22 12:09 XR chest 1V portable CLINICAL HISTORY: SEPSIS TECHNIQUE: Single frontal radiograph of the chest was obtained. Comparison: Comparison is made to chest radiograph 05/13/2020 FINDINGS: Dual lead pacemaker is seen. Cardiomegaly is noted. The lungs are clear. No evidence of pleural effusion or pneumothorax. IMPRESSION: No acute chest disease. ACT 112: Negative or not required by law. Electronically signed by: Domo Key M.D. 01/20/2022 12:51 PM ECG Data Attestation: I personally reviewed and interpreted this ECG as follows: Indication: + altered mental status Rate (beats per minute): 58 Rhythm: + atrial fibrillation ECG Intervals/blocks: + Right Bundle branch block and + Prolonged QT ECG [place]: + Left axis deviation ECG ST segments: + Nonspecific ST abnormalities MDM Narrative An order was placed for continuous cardiac monitoring. The monitor shows a rate of 80__ with normal sinus_ rhythm. This is an 86-year-old male presents emergency department due to 3 to 4 days of altered mentation. Patient was afebrile and hemodynamically stable. Labs drawn and sent and patient sent for urgent head CT as he had a seizure in front of nursing staff which quickly resolved. Patient then was verbal however dysarthric and appeared to have expressive aphasia. Patient returned from CT and continue to be well-appearing, he did undergo additional imaging of the abdomen and pelvis as well. Patient then will be monitored in the emergency room had an additional seizure and was treated with Ativan. CT of the head showed a small area of subarachnoid hemorrhage. I did attempt to contact the patient's girlfriend with whom he lives, and eventually spoke with the son who is the POA. They state neither the patient nor they his family would want him to have any aggressive intervention or neurosurgical procedure. They state he is DNR/DNI. They would like him kept comfortable as they knows this could potentially be fatal. Patient's other labs and imaging reassuring. He was given a gram of Keppra IV while in the emergency room. Case discussed with hospitalist for additional evaluation and management. Impression & Plan AMS (altered mental status), Seizure, SAH (subarachnoid hemorrhage), Hypomagnesemia, CKD (chronic kidney disease) Discharge Plan Visit Data Chief Complaint: Altered Mental Status ED Provider: Pinky Higgins Discharge Problem: AMS (altered mental status), Seizure, SAH (subarachnoid hemorrhage), Hypomagnesemia, CKD (chronic kidney disease) Patient Disposition: Admitted As Inpatient Discharge Instructions Interventions: ED Discharge Assessment Last Done: 01/20/22 15:51 Discharge Problem: AMS (altered mental status) Qualifiers: Altered mental status type: unspecified Qualified Code(s): R41.82 - Altered mental status, unspecified CKD (chronic kidney disease) Qualifiers: Chronic kidney disease stage: unspecified stage Qualified Code(s): N18.9 - Chronic kidney disease, unspecified
[2022-01-20] MEDS ORDERED: SODIUM CHLORIDE 0.9% 1000ML 1,000 ML IV SCH (12:15)
[2022-01-20 12:33] LABS: INR 1.1 (0.9-1.1); Prothrombin Time 11.9 Seconds (9.0-12.0)
[2022-01-20 12:36] LABS: Albumin Globulin Ratio 1.3 (0.9-2); Albumin Level 4.5 gm/dl (3.4-5.0); BUN Creatinine Ratio 14.2 (10-20); Bilirubin,Total 1.5 mg/dl (0.2-1.0); Calcium 9.2 mg/dl (8.5-10.1); Creatinine Clr Calc Pharmacy 33.2 ml/min; Est GFR (African American) 43.6 ml/min; Est GFR (Non-African American) 37.6 ml/min; Globulin 3.5 gm/dl (2.5-4.0); Magnesium 1.2 mg/dl (1.7-2.4); Potassium 3.7 mmol/L (3.5-5.1)
[2022-01-20 12:37] LABS: Basophils # (auto) 0.02 K/uL (0-0.2); Basophils % (auto) 0.2 %; Eosinophils # (auto) 0.23 K/uL (0-0.5); Eosinophils % (auto) 2.4 %; Hematocrit (blood only) 37.7 % (42-52); Immature Granulocytes # (auto) 0.03 K/uL (0.00-0.02); Immature Granulocytes % (auto) 0.3 %; Lymphocytes # (auto) 2.06 K/uL (1.2-3.4); Lymphocytes % (auto) 21.4 %; Mean Corpuscular Hemoglobin 29.6 pg (25-34); Mean Corpuscular Hgb Conc 34.5 g/dL (32-36); Mean Corpuscular Volume 85.9 fL (80-100); Mean Platelet Volume 9.5 fL (7.4-10.4); Monocytes # (auto) 0.96 K/uL (0.11-0.59); Neutrophils # (auto) 6.31 K/uL (1.4-6.5); Neutrophils % (auto) 65.7 %; Platelet Count 203 K/uL (130-400); RDW Coefficient of Variation 13.7 % (11.5-14.5); RDW Standard Deviation 43.4 fL (36.4-46.3); Red Blood Count 4.39 M/uL (4.7-6.1); White Blood Count 9.61 K/uL (4.8-10.8)
[2022-01-20 12:42] LABS: Troponin I High Sensitivity 45.7 pg/ml (0-20)
--- NOTE | 2022-01-20 12:53 | XRay Report ---
XR chest 1V portable CLINICAL HISTORY: SEPSIS TECHNIQUE: Single frontal radiograph of the chest was obtained. Comparison: Comparison is made to chest radiograph 05/13/2020 FINDINGS: Dual lead pacemaker is seen. Cardiomegaly is noted. The lungs are clear. No evidence of pleural effus ion or pneumothorax. IMPRESSION: No acute chest disease. ACT 112: Negative or not required by law. Electronically signed by: Domo Key M.D. 01/20/2022 12:51 PM
--- NOTE | 2022-01-20 12:58 | CT Scan Report ---
CT head/brain wo con CLINICAL HISTORY: 86 years-old Male with ams. Acute altered mental status TECHNIQUE: Multiple axial CT images of the head were obtained without contrast. A dose lowering tech nique was utilized adhering to the principles of ALARA. CT DOSE: 1041.13 mGy.cm COMPARISON: Head CT 05/13/2020 FINDINGS: There is a subtle linear area of increased attenuation involving the left parietal lobe on image 163 of series 301. There is no midline shift, intracranial mass, hydrocephalus, or acute territorial infa rct. Age-related involutional changes with ex vacuo ventriculomegaly. White matter hypodensities sugg est chronic microvascular ischemic disease. Chronic right cerebellar infarct. The calvarium is intact. Prior bilateral lens replacement. The paranasal sinuses, mastoid air cells, and middle ear cavities are clear. IMPRESSION: 1. Findings suggestive of subtle acute subarachnoid hemorrhage of the left parietal lobe. A 24-hour f ollow-up head CT is recommended. 2. No midline shift. 3. Involutional changes with chronic microvascular ischemic disease. Findings were discussed with Dr. Higgins on 01/20/2022 12:55 PM. ACT 112: Negative or not required by law. The above report was generated using voice recognition software. It may contain grammatical, syntax o r spelling errors. Electronically signed by: Elder Spann M.D. 01/20/2022 12:56 PM
[2022-01-20] MEDS ORDERED: OPTIRAY 320 100ml IV ONE (13:19)
[2022-01-20] MEDS: MAGNESIUM SULFATE / D5W 1 GM/100 ML BAG IV SCH ×2 (13:25→14:40)
--- NOTE | 2022-01-20 13:40 | CT Scan Report ---
CT abd pelvis IV con only CLINICAL HISTORY: diarrhea, ams COMPARISON STUDY: No previous studies for comparison. CT DOSE: 1107.75 mGycm TECHNIQUE: Standard CT of the Abdomen and Pelvis was performed with IV contrast. A dose lowering corine hnique was utilized adhering to the principles of ALARA. Contrast Volume: Optiray 320, 94 ml. The patient did not receive oral contrast. FINDINGS: Lung base: The lung bases are clear. There is moderate cardiomegaly with cardiac pacer in place. Abdominal cavity: There is no evidence for abdominal mass, adenopathy or ascites. Liver: There is homogeneous attenuation of the liver parenchyma. There is no evidence for enhancing m ass lesion. Spleen: There is homogeneous attenuation of the splenic parenchyma. There is no enhancing mass lesion . Pancreas: There is homogeneous attenuation of the pancreatic parenchyma. There is no evidence for mas s lesion or peripancreatic fluid collection. Gall Bladder: The gallbladder is well distended with no evidence for intraluminal calculi, wall thick ening or pericholecystic edema. Adrenal glands: The adrenal glands are normal in size and attenuation. There is no evidence for enhan cing mass lesion. Kidneys: There is a horseshoe kidney present. There is no evidence for renal calculus or hydronephros is. There is no evidence for enhancing mass. Bowel: The bowel loops are normally placed within the abdomen and pelvis without evidence for dilatat ion or obstruction. There is no evidence for mass lesion. There is extensive sigmoid diverticulosis w ithout evidence for diverticulitis. No significant fluid is seen within the colon. There are no infla mmatory changes present. There is no evidence for free air. Bladder: The bladder is distended with an abnormal thin pleural line extending along the right latera l wall. The presence of an underlying mass cannot be excluded. This is best seen on image 392. There is also impingement upon the floor the bladder related to an enlarged prostate. : There is no evidence for pelvic mass or adenopathy. There is no evidence for pelvic ascites. The prostate is mildly enlarged. Vasculature: There is no evidence for aneurysmal dilatation of the abdominal aorta. Extensive atheros clerotic calcification is present. Osseous structures: Degenerative changes are seen within the spine. IMPRESSION: 1. Extensive sigmoid diverticulosis without evidence for diverticulitis. 2. No fluid levels within the colon. 3. Suspicion of a mass involving the lateral wall of the bladder on the right. Follow-up is necessary . 4. Incidental note of a horseshoe kidney. 5. Additional nonacute findings are delineated above. ACT 112: Negative or not required by law. Electronically signed by: Suman Mcwilliams M.D. 01/20/2022 1:38 PM
[2022-01-20] MEDS ORDERED: levETIRAcetam 1,000 MG in 0.9 % SODIUM CHLORIDE 100 ML IV STA (14:00)
[2022-01-20 14:11] LABS: Influenza A virus by PCR Negative (Neg); Influenza B virus by PCR Negative (Neg); RSV by PCR Negative (Neg); SARS CoV2 RNA(COVID-19) InHosp NEGATIVE (Negative)
--- NOTE | 2022-01-20 14:40 | History & Physical Report ---
Date of Service January 20, 2022 Assessment & Plan (1) Subarachnoid hemorrhage: Plan: - Admit to PCU. - ED provider spoke with son, who is POA, and I, along with my attending, Dr. Brennan also spoke with patient's longtime clinical account liaison, both confirmed that patient is DNR/DNI and would not wish to pursue aggressive interventions, i.e. would not wish to pursue neurosurgical intervention. Therefore, we will keep patient here to monitor progression of hemorrhage, prevent/treat further seizure activity, and keep him comfortable. - Follow-up CT of head ordered to monitor progression. - NPO. - NSS 100 cc/hour. - Neurology consult placed. - Palliative care consult placed. (2) Seizure: Plan: - History of such after initial SAH in October 2019, placed on prophylactic Keppra at that time and has not had a seizure since. - Loaded with Keppra in ED as he did have 1 confirmed witnessed seizure. - Hold home dose, ordered Keppra 1 g IV every 12 hours. - Continue to monitor. (3) Hypomagnesemia: Plan: - 1.2, replete and recheck in AM. (4) Atrial fibrillation: Plan: - Hold metoprolol. No longer on anticoagulation. - S/p Watchman procedure (5) Hypertension: Plan: - Holding metoprolol. (6) Coronary artery disease: Plan: - Chronic, stable. - Holding metoprolol, statin, nitroglycerin. (7) Hyperlipidemia: Plan: - Holding statin. (8) GERD (gastroesophageal reflux disease): Plan: - Hold Pepcid. (9) Diabetes mellitus, type II: Plan: - Hold metformin. (10) CKD (chronic kidney disease), stage III: Plan: - Renal function at baseline. - Nephrotoxins, renally dose medications as able. - Follow on a.m. BMP. (11) Cardiac pacemaker in situ: Plan: - Admit to PCU. - SCDs for DVT PPx. - DNR/DNI. History of Present Illness Chief Complaint: Worsening confusion x3 days Primary Care Provider: Garcia Simms DO Con Olsen is an 86 y/o male with PMH of SAH in October 2019, afib s/p watchman procedure DM2, CKD stage III, sick sinus syndrome s/p cardiac pacemaker, CAD, carotid artery stenosis,ischemic cardiomyopathy, HTN, HLD, and GERD who presents today with abnormal behavior and confusion. Per patient's partner, he has been acting strange for the past 3 days, reportedly shouting out with noncoherent speech, walking around naked at home, combative, and unable to participate in his own care. He has also had new fecal incontinence. called his PCP, who recommended they present to ED for further evaluation. Patient unable to provide review of systems, however partner denies any recent falls, he had been in his normal state of health prior to this occurring. In ED, VS have been elevated, otherwise vital signs within normal limits and stable. Head CT showed subtle acute subarachnoid hemorrhage in left parietal lobe, no midline shift. Labs significant for chronic anemia, stable renal function, low magnesium, T bili 1.5. Glucose 142. HS troponin 45.7. CXR unremarkable, CT A/P revealed mass involving lateral wall bladder, extensive diverticulosis without diverticulitis. No other acute findings. In ED, patient had witnessed seizure-like activity by nursing staff, seizure activity quickly stopped and patient was alert but with expressive aphasia, moving all extremities. Approximately 2 hours later, he began mumbling and had a recurrent seizure. Did have postictal phase after this. H was given fluids, magnesium, Ativan, and a loading dose of Keppra. Hospital service consulted for further evaluation and admission. Allergies Allergy/AdvReac Type Severity Reaction Status Date / Time No Known Drug Allergies Allergy Verified 01/20/22 13:31 Home Medications Medication Instructions Recorded Confirmed Type nitroglycerin 0.4 mg sublingual 0.4 mg SL Q5M PRN tab 06/30/19 01/20/22 History tablet cholecalciferol (vitamin D3) 25 1,000 units PO QAM cap 10/22/19 01/20/22 History mcg (1,000 unit) capsule acetaminophen 325 mg tablet 325 mg PO QID PRN 11/03/19 01/20/22 History (Tylenol) metformin 500 mg tablet 500 mg PO BIDM #180 tab 10/26/20 01/20/22 Rx famotidine 20 mg tablet 20 mg PO BID #180 tab 06/14/21 01/20/22 Rx metoprolol succinate 100 mg 100 mg PO QAM 08/01/21 01/20/22 History tablet,extended release 24 hr atorvastatin 40 mg tablet 40 mg PO HS #90 tab 04/08/22 06/10/22 Rx amlodipine 10 mg tablet 10 mg PO QAM #90 tab 11/24/21 01/20/22 Rx levetiracetam 500 mg tablet 500 mg PO BID #180 tab 11/24/21 01/20/22 Rx (Keppra) furosemide 20 mg tablet 20 mg PO QAM 01/20/22 01/20/22 History Past Med/Surg History Medical History Arthritis Atrial fibrillation ? DETAILS BPH (benign prostatic hyperplasia) Carotid artery stenosis CKD (chronic kidney disease), stage III Coronary artery disease s/p stent 2008 Diabetes mellitus, type II Diverticulosis GERD (gastroesophageal reflux disease) History of anesthesia reaction SLOW TO WAKE UP History of skin cancer History of stroke 10/2019 [facility] [place] History of subarachnoid hemorrhage 10/2019 [facility] [place] Hyperlipidemia Hypertension Ischemic cardiomyopathy Poor historian WITH CONFUSION Premature ventricular contractions Presence of Watchman left atrial appendage closure device (~08/2020) IMPLANTED 2019 >FOLLOWS WITH PSU TAMMY/DR. POWERS Seizure ONLY ONE EPISODE>10/2019 Sick sinus syndrome Ventricular tachycardia Surgical History History of heart artery stent 2009 STENT x 4 History of right cataract surgery [place] [facility] [place] IMPLANTED 4 YEARS AGO/[place]. LAST CHECK APPROX 3 MO AGO S/P carotid endarterectomy LEFT Family History Father , age 61 of an MRI Myocardial infarction Family history of diabetes mellitus Daughter Breast cancer Brother Melanoma of skin Diabetes Coronary heart disease Family history of diabetes mellitus Mother , age 81 of lung cancer Lung cancer Other No family history of adverse response to anesthesia Social History Smoking Status: Unknown if ever smoked Second Hand Exposure: No; Hx Alcohol Use: Yes Alcohol type: beer Hx Substance Use: No Preferred Language: Cypriot Communication Ability: Effective Visual Impairment: Limited Hearing Ability: Normal Hospice Social Worker Required: No Beliefs That Will Affect Care: None marital status: Life Partner Current Living Situation: Significant Other current occupational status: retired 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 Head: Normocephalic, atraumatic ENT: PERRL, EOMI, no pharyngeal exudate, mucous membranes moist Chest: Clear to auscultation, on room air, no adventitious breath sounds Cardiac: Regular rate and rhythm, no murmur, no JVD, normal peripheral pulses, good capillary refill Abdominal: NABS x 4 quadrants, soft, nontender to palpation, no rebound, guarding or tenderness Extremities: Normal inspection, no peripheral edema or erythema, calfs nontender to palpation Psych: Unable to assess Neuro: altered mentation, very drowsy currently s/p ativan Skin: no rash or erythema Results & Data Results & Data ([facility]) Vital Signs (Past 12 Hours) Vital Signs Temp Pulse Pulse Resp BP BP Pulse Ox 01/20/22 14:01 60 13 142/64 H 99 01/20/22 14:00 12 95 01/20/22 13:39 12 95 01/20/22 13:30 54 L 12 95 01/20/22 13:25 58 L 17 154/59 H 95 01/20/22 13:23 59 L 16 154/59 H 96 01/20/22 13:22 54 L 20 97 01/20/22 13:09 12 95 01/20/22 12:39 12 95 01/20/22 12:30 60 20 01/20/22 12:09 58 L 17 97 01/20/22 12:00 52 L 12 98 01/20/22 11:34 59 L 13 98 01/20/22 11:26 36.7 C 58 L 17 172/77 H 97 Laboratory Results Abnormal lab results 01/20/22 01/20/22 01/20/22 Range/Units 11:35 11:35 12:36 RBC 4.39 L (4.7-6.1) M/uL Hgb 13.0 L (14.0-18.0) g/dL Hct 37.7 L (42-52) % Victoria # (Auto) 0.96 H (0.11-0.59) K/uL Immature Gran # (Auto) 0.03 H (0.00-0.02) K/uL Anion Gap 12 H (3-11) Creatinine 1.62 H (0.6-1.4) mg/dl Glucose 142 H (70-99(Fasting)) mg/dl Lactate 2.3 H* (0.4-2.0) mmol/L Magnesium 1.2 L (1.7-2.4) mg/dl Total Bilirubin 1.5 H (0.2-1.0) mg/dl Troponin I High Sens 45.7 H (0-20) pg/ml Diagnostic Findings Abdomen/Pelvis CT 01/20/22 12:08 CT abd pelvis IV con only CLINICAL HISTORY: diarrhea, ams COMPARISON STUDY: No previous studies for comparison. CT DOSE: 1107.75 mGycm TECHNIQUE: Standard CT of the Abdomen and Pelvis was performed with IV contrast. A dose lowering technique was utilized adhering to the principles of ALARA. Contrast Volume: Optiray 320, 94 ml. The patient did not receive oral contrast. FINDINGS: Lung base: The lung bases are clear. There is moderate cardiomegaly with cardiac pacer in place. Abdominal cavity: There is no evidence for abdominal mass, adenopathy or ascites. Liver: There is homogeneous attenuation of the liver parenchyma. There is no evidence for enhancing mass lesion. Spleen: There is homogeneous attenuation of the splenic parenchyma. There is no enhancing mass lesion. Pancreas: There is homogeneous attenuation of the pancreatic parenchyma. There is no evidence for mass lesion or peripancreatic fluid collection. Gall Bladder: The gallbladder is well distended with no evidence for intraluminal calculi, wall thickening or pericholecystic edema. Adrenal glands: The adrenal glands are normal in size and attenuation. There is no evidence for enhancing mass lesion. Kidneys: There is a horseshoe kidney present. There is no evidence for renal calculus or hydronephrosis. There is no evidence for enhancing mass. Bowel: The bowel loops are normally placed within the abdomen and pelvis without evidence for dilatation or obstruction. There is no evidence for mass lesion. There is extensive sigmoid diverticulosis without evidence for diverticulitis. No significant fluid is seen within the colon. There are no inflammatory changes present. There is no evidence for free air. Bladder: The bladder is distended with an abnormal thin pleural line extending along the right lateral wall. The presence of an underlying mass cannot be excluded. This is best seen on image 392. There is also impingement upon the floor the bladder related to an enlarged prostate. : There is no evidence for pelvic mass or adenopathy. There is no evidence for pelvic ascites. The prostate is mildly enlarged. Vasculature: There is no evidence for aneurysmal dilatation of the abdominal aorta. Extensive atherosclerotic calcification is present. Osseous structures: Degenerative changes are seen within the spine. IMPRESSION: 1. Extensive sigmoid diverticulosis without evidence for diverticulitis. 2. No fluid levels within the colon. 3. Suspicion of a mass involving the lateral wall of the bladder on the right. Follow-up is necessary. 4. Incidental note of a horseshoe kidney. 5. Additional nonacute findings are delineated above. ACT 112: Negative or not required by law. Electronically signed by: Suman Mcwilliams M.D. 01/20/2022 1:[address] 01/20/22 12:08 CT head/brain wo con CLINICAL HISTORY: 86 years-old Male with ams. Acute altered mental status TECHNIQUE: Multiple axial CT images of the head were obtained without contrast. A dose lowering technique was utilized adhering to the principles of ALARA. CT DOSE: 1041.13 mGy.cm COMPARISON: Head CT 05/13/2020 FINDINGS: There is a subtle linear area of increased attenuation involving the left parietal lobe on image 163 of series 301. There is no midline shift, intracranial mass, hydrocephalus, or acute territorial infarct. Age-related involutional changes with ex vacuo ventriculomegaly. White matter hypodensities suggest chronic microvascular ischemic disease. Chronic right cerebellar infarct. The calvarium is intact. Prior bilateral lens replacement. The paranasal sinuses, mastoid air cells, and middle ear cavities are clear. IMPRESSION: 1. Findings suggestive of subtle acute subarachnoid hemorrhage of the left parietal lobe. A 24-hour follow-up head CT is recommended. 2. No midline shift. 3. Involutional changes with chronic microvascular ischemic disease. Findings were discussed with Dr. Higgins on 01/20/2022 12:55 PM. ACT 112: Negative or not required by law. The above report was generated using voice recognition software. It may contain grammatical, syntax or spelling errors. Electronically signed by: Elder Spann M.D. 01/20/2022 12:56 PM Chest X-Ray 01/20/22 12:09 XR chest 1V portable CLINICAL HISTORY: SEPSIS TECHNIQUE: Single frontal radiograph of the chest was obtained. Comparison: Comparison is made to chest radiograph 05/13/2020 FINDINGS: Dual lead pacemaker is seen. Cardiomegaly is noted. The lungs are clear. No evidence of pleural effusion or pneumothorax. IMPRESSION: No acute chest disease. ACT 112: Negative or not required by law. Electronically signed by: Domo Key M.D. 01/20/2022 12:51 PM ECG Additional Comments: Atrial fibrillation with slow ventricular response Left axis deviation Right bundle branch block Inferior infarct , age undetermined Anterior infarct , age undetermined Abnormal ECG When compared with ECG of 16-OCT-2021 11:32, Atrial fibrillation has replaced Electronic ventricular pacemaker. Code Status & VTE Plan Code Status DNR/DNI. Supervising Physician Co-Signing Physician Notes This is an 86-year-old male with past medical history of a previous hemorrhagic CVA that presents after altered mental status for the past 3 days. Patient is currently obtunded, postictal and status post dose of Ativan. Patient's significant other is at bedside. She states that he has been acting very strangely over the past 3 days and very confused. She did contact his physician and was told to bring him to the emergency room soon as possible. Here he had 2 witnessed tonic-clonic seizures and was treated with Ativan and is currently sedated. Work-up revealed a small subarachnoid hemorrhage that is acute. I did discuss the patient's condition with the significant other. ER physician also contacted the son who is several hours away. Both are in agreement that patient would not want any aggressive treatment. I did note to the significant other that we do not have neurosurgical services here and if the patient worsened that we would have nothing to offer outside of a transfer to another facility for possible surgical intervention. They understand and they want the patient to be as comfortable as possible. Therefore, we will monitor the patient on telemetry. Repeat CT scans to monitor a subarachnoid hemorrhage. I did start Keppra 1 g IV every 12 hours. I did also continue metoprolol IV. Discussed with neurology for further recommendations. If palliative care services available here, I did consult them as well. PG Care Time/CCT Total # of Minutes Spent Total Time Spent with Patient: Total time spent is greater than 50% in coordination of care (as documented) at patient's floor/unit and/or counseling patient: Coding Level of Care Code 38293 Initial Inpt Care Lvl 3 Diagnoses Subarachnoid hemorrhage I60.9 Seizure R56.9 Atrial fibrillation I48.91 Cardiac pacemaker in situ Z95.0 Hypertension I10 Coronary artery disease I25.10 Hyperlipidemia E78.5 GERD (gastroesophageal reflux disease) K21.9 Diabetes mellitus, type II E11.9 CKD (chronic kidney disease), stage III N18.3 Hypomagnesemia E83.42
[2022-01-20] MEDS ORDERED: ONDANSETRON INJ 2 MG/ML 2 ML VIAL IV PRN (16:16)
[2022-01-20] MEDS: SODIUM CHLORIDE 0.9% 1000ML 1,000 ML IV SCH (17:28)
[2022-01-20 19:18] LABS: Appearance Urine Clear (Clear); Bacteria Urine Automated Negative (Negative); Bilirubin Urine Negative (Negative); Blood Urine Negative (Negative); Color Urine Yellow; Glucose Urine UA Trace (Negative); Ketones Urine Trace (Negative); Leukocyte Esterase Urine Negative (Negative); Nitrite Urine Negative (Negative); Protein Urine 1+ (Negative); RBC Urine Automated 0-4 /hpf (0-4); Specific Gravity Urine 1.037 (1.000-1.030); Urobilinogen Urine Negative (Negative)
[2022-01-20 19:31] LABS: Phosphorus 3.9 mg/dl (2.5-4.9)
[2022-01-21] MEDS: levETIRAcetam 750 MG in 0.9 % SODIUM CHLORIDE 100 ML IV SCH ×2 (01:53→14:55)
[2022-01-21] MEDS: SODIUM CHLORIDE 0.9% 1000ML 1,000 ML IV SCH ×3 (03:28→23:33)
--- NOTE | 2022-01-21 06:29 | Electrocardiogram Report ---
Test Reason : Blood Pressure : / mmHG Vent. Rate : 058 BPM Atrial Rate : 060 BPM P-R Int : 000 ms QRS Dur : 134 ms QT Int : 488 ms P-R-T Axes : 000 -72 002 degrees QTc Int : 479 ms Atrial fibrillation with slow ventricular response Left axis deviation Right bundle branch block Inferior infarct , age undetermined Anterior infarct , age undetermined Abnormal ECG When compared with ECG of 16-OCT-2021 11:32, Ventricular paced complexes are no longer present Confirmed by Fidel Irby ([id number]) on 01/21/2022 6:28:57 AM Referred By: REFERRED SELF Confirmed By:Fidel Irby
[2022-01-21 06:32] LABS: Basophils # (auto) 0.03 K/uL (0-0.2); Basophils % (auto) 0.4 %; Eosinophils % (auto) 2.8 %; Hematocrit (blood only) 34.5 % (42-52); Hemoglobin 11.8 g/dL (14.0-18.0); Immature Granulocytes # (auto) 0.02 K/uL (0.00-0.02); Immature Granulocytes % (auto) 0.3 %; Lymphocytes # (auto) 1.64 K/uL (1.2-3.4); Lymphocytes % (auto) 22.6 %; Mean Corpuscular Hemoglobin 29.1 pg (25-34); Mean Corpuscular Hgb Conc 34.2 g/dL (32-36); Mean Platelet Volume 9.2 fL (7.4-10.4); Monocytes # (auto) 0.84 K/uL (0.11-0.59); Monocytes % (auto) 11.6 %; Neutrophils # (auto) 4.53 K/uL (1.4-6.5); Neutrophils % (auto) 62.3 %; Platelet Count 171 K/uL (130-400); RDW Coefficient of Variation 13.7 % (11.5-14.5); Red Blood Count 4.06 M/uL (4.7-6.1); White Blood Count 7.26 K/uL (4.8-10.8)
[2022-01-21 06:55] LABS: Albumin Globulin Ratio 1.4 (0.9-2); Albumin Level 3.8 gm/dl (3.4-5.0); BUN Creatinine Ratio 13.5 (10-20); Bilirubin,Total 1.2 mg/dl (0.2-1.0); Calcium 8.3 mg/dl (8.5-10.1); Creatinine Clr Calc Pharmacy 42.6 ml/min; Est GFR (Non-African American) 50.9 ml/min; Globulin 2.7 gm/dl (2.5-4.0); Potassium 3.4 mmol/L (3.5-5.1); Total Protein 6.5 gm/dl (6.0-8.3)
--- NOTE | 2022-01-21 09:11 | CT Scan Report ---
CT head/brain wo con CLINICAL HISTORY: FU SAH COMPARISON STUDY: No previous studies for comparison. CT DOSE: 614.27 mGy.cm TECHNIQUE: Standard CT of the Brain was performed without IV contrast. A dose lowering technique was utilized adhering to the principles of ALARA. FINDINGS: Compared to the previous examination, there is no significant interval change in the previo usly identified small subarachnoid hemorrhage within the left parietal lobe posteriorly. It measures approximately 10 x 12 mm. Mild surrounding cerebral edema is present at this site. No new hemorrhages are identified. Extraaxial space: There is no evidence for subdural hematoma. There are no extra-axial fluid collecti ons. Ventricles and cisterns: The ventricles are mildly dilated bilaterally. There is no evidence for midl ine shift or mass effect. Parenchyma: There is no evidence for intraparenchymal hemorrhage. There is no evidence for an acute i nfarct or cerebral edema. There is mild cerebral cortical atrophy and decreased attenuation in the pe riventricular white matter representing remote small vessel disease. There are no gross mass lesions. Osseous structures: There is no evidence for an acute fracture. The visualized paranasal sinuses are clear. The mastoid air cells are clear bilaterally. Soft tissues: There is no evidence for focal soft tissue swelling. IMPRESSION: 1. No significant interval change from the previous study with findings again most suspicious for sma ll subarachnoid hemorrhage in the left posterior parietal lobe. 2. However, there is surrounding edema which is out of proportion to the extent of the hemorrhage. If the hemorrhage does not resolve the neck 24 hours, MRI of the brain without and with contrast would be recommended to exclude underlying pathology. 3. Cerebral cortical atrophy and remote small vessel disease. ACT 112: Negative or not required by law. Electronically signed by: Suman Mcwilliams M.D. 01/21/2022 9:09 AM
--- NOTE | 2022-01-21 13:04 | Hospitalist Progress Note ---
Date of Service January 21, 2022 Assessment & Plan (1) Subarachnoid hemorrhage: Plan: - Spoke with pt's family who holds POA and states they do not want neurosurgical intervention - Will continue medical management- BP monitoring, seizure treatment, pain relief -BPs stable at present, consider nicardipine drip if persistently elevated - CT Head repeat 01/21 with no interval change in left parietal lobe subarachnoid hemorrhage but disproportionately high edema -Recommend repeat CT this afternoon and subsequent MRI if hemorrhage does not improve - NPO, NSS 100 cc/hour. - Neurology consult placed (2) Seizure: Plan: - History of such after initial SAH in October 2019, placed on prophylactic Keppra at that time and has not had a seizure since. - Loaded with Keppra in ED as he did have 1 confirmed witnessed seizure. - Hold home dose, continue Keppra 1 g IV every 12 hours. - Continue to monitor. (3) Hypomagnesemia: Plan: - 1.2, replete and recheck in AM. (4) Atrial fibrillation: Plan: - Hold metoprolol, currently rate-controlled. No longer on anticoagulation. - S/p Watchman procedure (5) Hypertension: Plan: - Holding metoprolol - BPs stable at present (6) Coronary artery disease: Plan: - Chronic, stable. - Holding metoprolol, statin, nitroglycerin. (7) Hyperlipidemia: Plan: - Holding statin. (8) GERD (gastroesophageal reflux disease): Plan: - Hold Pepcid. (9) Diabetes mellitus, type II: Plan: - Hold metformin. (10) CKD (chronic kidney disease), stage III: Plan: - Renal function at baseline. - Nephrotoxins, renally dose medications as able. - Follow on a.m. BMP. (11) Cardiac pacemaker in situ: Plan: - Admit to PCU. - SCDs for DVT PPx. - DNR/DNI. Admission and Anticipated Discharge Date Admission Date: January 20, 2022 Supervising Physician Co-Signing Physician Notes I personally examined the patient and verified all pascual points of history and exam, discussed case, and agree with decision making with Dr Gilliam no meaningful HPI or ROS but is conversational, albeit quite confused conversational. present at the bedside. Readdressed discussions as previously had by Dr. Palmeronfirmed that he would not want neurosurgical interventionto that end we agreed that at his age, if he crossed the line of requiring neurosurgical intervention that would essentially be crossing the line into a palliative goal of care. Updated to the best my ability. Vitals noted. He is awake disoriented but quite talkative does not appear to be in any physical distress or pain. HEENT normocephalic atraumatic mucous membranes moist. Breathing unlabored no accessory muscle use good effort. Very disoriented but no focal neurodeficitssensory appears to be equal and intact globally, motor appears to be 5 out of 5 equal and intact globallyalthough he does have a good degree of difficulty following commands Intracranial bleedappears to be nonaneurysmal subarachnoid hemorrhage to the best we can tell, and given that he is not for any neurosurgical intervention, further work-up was precluded in that avenue. Given that the edema does not appear to be disproportionate to the bleed, MRI pending to rule out underlying mass lesion. Control blood pressure (trial of nimodipine), supportive care, w ound reorientation as possible. Seizure prophylaxis. Otherwise as above Subjective No behavioral incidents or acute events overnight. Pt was confused this morning and stated he wanted to go home. Interview limited by mental status. Appeared to indicate he wasn't in any pain or having any headache. Review of Systems Review of Systems: Per HPI Physical Exam Physical Exam: General: confused, in no acute distress. Head: Normocephalic, atraumatic ENT: PERRL, EOMI, no pharyngeal exudate, mucous membranes moist Chest: Clear to auscultation, on room air, no adventitious breath sounds Cardiac: Regular rate and rhythm, no murmur, no JVD, normal peripheral pulses, good capillary refill Abdominal: NABS x 4 quadrants, soft, nontender to palpation, no rebound, guarding or tenderness Extremities: Normal inspection, no peripheral edema or erythema, calves nontender to palpation Psych: Unable to assess Neuro: altered mentation, no focal motor or sensory deficits Skin: no rash or erythema Results & Data Results & Data ([facility]) Vital Signs (Past 12 Hours) Vital Signs Temp Pulse Pulse Resp BP Pulse Ox 01/21/22 11:46 36.4 C L 91 H 18 175/81 H 96 01/21/22 07:42 36.4 C L 40 L 16 164/95 H 97 01/21/22 06:10 72 01/21/22 04:00 36.9 C 52 L 18 163/84 H 95 Resident Activity Tracking Resident Involvement: Resident Care Provided Care Provided: Adult Hospital Medicine
--- NOTE | 2022-01-21 13:16 | Neurology Consultation ---
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 1 month later he had his 1st seizure. He was put on levetiracetam and has not had any known seizure until recently. He does have a history of chronic atrial fibrillation and a pacemaker. he is not on chronic anticoagulation or antiplatelet medication. The patient has had several days of altered mental status and gait disturbance. He may be having seizures, as was witnessed in the emergency room January 20. A postictal confusion is possible. His mental status is much better today but I believe he has a significant underlying dementia. CT scan of the head shows subtle subarachnoid hemorrhage posterior left parietal now with an area of edema. Recommendations: 1. ideally, we should obtain an MRI of the brain with and without contrast, to evaluate for tumor versus stroke. I understand the patient is currently a "DNR" and is overall prognosis is relatively poor given his advanced age. 2. No antiplatelet or anticoagulant medications at this time. 3. Agree with increasing levetiracetam to 750 mg twice daily. 4. Control blood pressure as you are doing aiming for a mean arterial pressure of 95-100. 5. given his advanced age and history of hemorrhage, he would not be a high-dose statin candidate. 6. We may consider additional testing depending his clinical course. Overall, I spent a total of 60 minutes with this case including review of records, review of CT films, direct evaluation the patient at bedside, and discussion of the case with the patient and RN at bedside, and Dr. Estes, including differential diagnosis and treatment options. History of Present Illness Reason for Consultation: Patient is an 86-year-old, who I was asked to see at the request of Dr. pérez valdes, for neurologic consultation regarding altered mental status. He I 1st saw this patient in October of 2019. He had a history of spontaneous hemorrhagic stroke/subarachnoid hemorrhage in September of 2019 requiring and transferred [facility]. Two strokes were discovered, 1 in the left pontine area and 1 in the right cerebellar hemisphere. He returned back in October of 2019 after a witnessed tonic-clonic seizure. He was given levetiracetam and did not have any additional seizures. at the time of the stroke/ hemorrhage he was on Xarelto for atrial fibrillation. At that time, I believe he had a mild underlying dementia particularly short- term memory problems. Patient's strokes healed and his bleeding resolved. by January of 2020 he was put back on Xarelto and 81 mg aspirin. His blood pressure had been better controlled as was his glucose. He was maintained on 500 mg levetiracetam twice daily. He has not been on anticoagulation recently. Over the last 3-4 days prior to admission, the patient had been becoming more confused and having more trouble walking. He was angry and not cooperative. The patient arrived at the emergency room January 20 at 11:26 a.m. with a temperature of 36.7, pulse 58, respiratory rate 17, blood pressure 172/77, and O2 saturation 97%. He is in chronic atrial fibrillation on a pacemaker. In the emergency room he had altered mental status was nonverbal. He was not following commands. At 1 point a seizure was witnessed in the emergency room w as given 1000 mg levetiracetam. He has had no further seizure activity. Today, the patient has been more alert, following commands and conversing. He is able to eat on his own as well. Chest x-ray was unremarkable. CT scan of the abdomen and pelvis showed diverticulosis without diverticulitis and a suspicious right bladder wall mass. CT scan of the head showed findings suggestive of subtle acute subarachnoid hemorrhage in the left parietal lobe. A repeat CT scan this morning showed no change from the previous study suspicious for a small subarachnoid hemorrhage in the left posterior parietal lobe. There was some underlying edema seen as well. The patient has no complaint of pain or headache. He does not believe his arms or legs have any weakness or numbness. Attending Physician: Landon Estes DO Allergies Allergy/AdvReac Type Severity Reaction Status Date / Time No Known Drug Allergies Allergy Verified 01/20/22 13:31 Home Medications Medication Instructions Recorded Confirmed Type nitroglycerin 0.4 mg sublingual 0.4 mg SL Q5M PRN tab 06/30/19 01/20/22 History tablet cholecalciferol (vitamin D3) 25 1,000 units PO QAM cap 10/22/19 01/20/22 History mcg (1,000 unit) capsule acetaminophen 325 mg tablet 325 mg PO QID PRN 11/03/19 01/20/22 History (Tylenol) metformin 500 mg tablet 500 mg PO BIDM #180 tab 10/26/20 01/20/22 Rx famotidine 20 mg tablet 20 mg PO BID #180 tab 06/14/21 01/20/22 Rx metoprolol succinate 100 mg 100 mg PO QAM 08/01/21 01/20/22 History tablet,extended release 24 hr atorvastatin 40 mg tablet 40 mg PO HS #90 tab 11/18/21 01/20/22 Rx amlodipine 10 mg tablet 10 mg PO QAM #90 tab 11/24/21 01/20/22 Rx levetiracetam 500 mg tablet 500 mg PO BID #180 tab 11/24/21 01/20/22 Rx (Keppra) furosemide 20 mg tablet 20 mg PO QAM 01/20/22 01/20/22 History Patient History Medical History Arthritis Atrial fibrillation ? DETAILS BPH (benign prostatic hyperplasia) Carotid artery stenosis CKD (chronic kidney disease), stage III Coronary artery disease s/p stent 2008 Diabetes mellitus, type II Diverticulosis GERD (gastroesophageal reflux disease) History of anesthesia reaction SLOW TO WAKE UP History of skin cancer History of stroke 10/2019 [facility] History of subarachnoid hemorrhage 10/2019 [facility] Hyperlipidemia Hypertension Ischemic cardiomyopathy Poor historian WITH CONFUSION Premature ventricular contractions Presence of Watchman left atrial appendage closure device (~08/2020) IMPLANTED 2019 >FOLLOWS WITH PSU TAMMY/DR. POWERS Seizure ONLY ONE EPISODE>10/2019 Sick sinus syndrome Ventricular tachycardia Surgical History History of heart artery stent 2009 STENT x 4 History of right cataract surgery 04/04/21 [facility] [place] S/P cardiac pacemaker procedure IMPLANTED 4 YEARS AGO/[place]. LAST CHECK APPROX 3 MO AGO S/P carotid endarterectomy LEFT Family History Father , age 61 of an MRI Myocardial infarction Family history of diabetes mellitus Daughter Breast cancer Brother Melanoma of skin Diabetes Coronary heart disease Family history of diabetes mellitus Mother , age 81 of lung cancer Lung cancer Other No family history of adverse response to anesthesia Social History Smoking Status: Never smoker Second Hand Exposure: No; Hx Alcohol Use: No Hx Substance Use: No Preferred Language: Arabic Communication Ability: Impaired Visual Impairment: Limited Hearing Ability: Normal Pigs Feet Finisher Required: No Beliefs That Will Affect Care: None marital status: Life Partner Current Living Situation: Family current occupational status: retired 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 How many Children do You have: 3 Other Information That Helps Us Care for You: No other: 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50, 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 [employer] Feels Safe at Home: Yes Safety Concerns: Feels Safe At This Time Childhood Exposure to Second-Hand Smoke: No caffeine: No Dental Care, Regularly: No Physical Activity Frequency: Does not Exercise Seatbelt Use: always Sunscreen Use: No Assistive Devices: Cane and Walker Review of Systems Constitutional: no fever, no fatigue and no weakness Eyes: no diplopia, no eye pain and no worsening vision Ear, Nose, Mouth, Throat: no ear pain, no tinnitus, no hearing loss, no dizziness, no snoring, no hoarseness and no dysphagia Respiratory: no cough and no dyspnea Cardiovascular: no chest pain, no palpitations and no lightheadedness Gastrointestinal: no abdominal pain, no nausea and no vomiting Musculoskeletal: no back pain, no neck pain, no radicular pain, no joint pain and no myalgia Integumentary: no rash and no lesions Neurologic: no gait abnormality, no localized weakness, no generalized weakness, no tingling, no numbness, no tremor(s), no abnormal movements, no headache(s), no abnormal speech, no confusion and no memory loss Psychiatric: no depression, no irritability, no anxiety, no difficulty concentrating, no confusion and no hallucinations Endocrine: no fatigue and no flushing Hematologic / Lymphatic: no easy bleeding and no easy bruising Allergy / Immunological: no urticaria and no problem reported Exam (Neuro) Physical Exam: The patient is right-handed. The patient is awake, alert, and attentive. Speech is without any aphasia or dysarthria to initial conversation, however, he does not name objects well or colors. mood seems normal and affect is appropriate. He is pleasant and cooperative. He did not know his age, the month, or the year. He did know his name. 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 Pupils are 3 mm bilaterally and reactive to light. Extraocular eye muscles are intact without nystagmus. Visual acuity and visual reed seem normal grossly to confrontation. There are no deficits to sensation in the face in all 3 distributions of the fifth cranial nerve bilaterally. Corneal reflexes are positive bilaterally. Facial strength and symmetry was normal bilaterally. Hearing seems normal bilaterally. Palate moves well without asymmetry. There is normal sternocleidomastoid and trapezius (shoulder shrug) strength bilaterally. Tongue is midline with good strength bilaterally. Neck has a full range of motion without discomfort. There are no cervical bruits bilaterally. There are no cranial or ocular bruits. Heart is without murmur. There is a regular rhythm and rate. Cervical, thoracic, and lumbar spine are nontender to palpation. Gait was not tested and stance sitting up in bed is poor. With outstretched arms there is no drift. There are no resting, postural, or action tremors. There is no ataxia with finger to nose testing. There is reasonable facility in the hands. No other abnormal involuntary movements are noted. Motor strength is 5/5 diffusely in the arms bilaterally including deltoids, biceps, triceps, brachioradialis, wrist flexors and extensors, manager outpatient, and intrinsic hand muscles. Motor strength is 5/5 diffusely in the legs bilaterally including hip flexors, quadriceps, hamstrings, gastrocnemius, tibialis anterior, tibialis posterior, and Peroneii muscles. Toe extensors are normal and there is good bulk in the extensor digitorum brevis muscles bilaterally. The limbs have good tone without rigidity or spasticity. There is no atrophy noted in the muscles. Muscle bulk is normal, there is no tenderness to palpation, no myotonia to percussion, and no fasciculations seen. Sensory examination is intact to touch and pin throughout all 4 limbs diffusely. Reflexes are 0/4 in the biceps, triceps, brachioradialis, quadriceps, and Achilles tendons bilaterally. There is no clonus bilaterally. Toes are downgoing with plantar stimulation bilaterally. Peripheral pulses are present and of normal quality distally in all 4 limbs. There is no peripheral edema noted in the limbs. 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
--- NOTE | 2022-01-21 15:09 | CT Scan Report ---
CT head/brain wo con CLINICAL HISTORY: subarachnoid hemorrhage Technique: Contiguous axial CT images of the head were acquired from the base of the skull to the aiden lamonte without intravenous contrast administration. Images were viewed in brain, subdural and [facility]. Automated dose lowering techniques and/or adjustment according to patient size were utilized for this exam. Comparison: Comparison is made to CT head 01/21/2022 Findings: Areas of decreased attenuation are present in the periventricular and subcortical white matter bilate rally consistent with small vessel ischemic disease. Generalized cerebral atrophy with commensurate e nlargement of the ventricles, sulci, and cisterns is also present. There is no acute intracranial hem orrhage or evidence of acute territorial infarction. No shift of the midline structures, mass effect, or extra-axial abnormalities are shown. Atherosclerotic calcifications are present in the intracran ial segments of the internal carotid arteries. Redemonstration of a small hyperdensity in the left pa rietal region with mild surrounding edema. Imaged portions of the paranasal sinuses and mastoid air cells are clear. The orbits appear normal. There are no acute fractures of the calvaria or scalp swelling. Impression: Redemonstration of hyperdensity in the left parietal lobe with surrounding edema. This lesion has not significantly changed in appearance for 24 hours of follow-up. If there is concern for underlying ma ss, MRI can be performed. ACT 112: Negative or not required by law. Electronically signed by: Domo Key M.D. 01/21/2022 3:07 PM
[2022-01-21] MEDS ORDERED: niMODipine 30 MG CAP PO ONE (16:21)
--- NOTE | 2022-01-21 16:32 | Billing Data ---
Date of Service January 21, 2022 Coding Level of Care Code 46108 Subseq Hosp Care Lvl 3
[2022-01-21] MEDS: niMODipine 30 MG CAP PO SCH ×2 (20:29→23:37)
[2022-01-22] MEDS: levETIRAcetam 750 MG in 0.9 % SODIUM CHLORIDE 100 ML IV SCH ×2 (02:02→15:11)
[2022-01-22] MEDS: niMODipine 30 MG CAP PO SCH ×6 (03:50→23:28)
[2022-01-22 06:46] LABS: Basophils # (auto) 0.03 K/uL (0-0.2); Basophils % (auto) 0.3 %; Eosinophils # (auto) 0.09 K/uL (0-0.5); Eosinophils % (auto) 0.9 %; Hematocrit (blood only) 34.3 % (42-52); Hemoglobin 11.7 g/dL (14.0-18.0); Immature Granulocytes # (auto) 0.05 K/uL (0.00-0.02); Immature Granulocytes % (auto) 0.5 %; Lymphocytes % (auto) 16.6 %; Mean Corpuscular Hemoglobin 30.2 pg (25-34); Mean Corpuscular Hgb Conc 34.1 g/dL (32-36); Mean Corpuscular Volume 88.4 fL (80-100); Mean Platelet Volume 8.9 fL (7.4-10.4); Monocytes # (auto) 0.89 K/uL (0.11-0.59); Monocytes % (auto) 9.3 %; Neutrophils # (auto) 6.95 K/uL (1.4-6.5); Neutrophils % (auto) 72.4 %; Platelet Count 204 K/uL (130-400); RDW Coefficient of Variation 13.9 % (11.5-14.5); RDW Standard Deviation 44.8 fL (36.4-46.3); Red Blood Count 3.88 M/uL (4.7-6.1); White Blood Count 9.61 K/uL (4.8-10.8)
[2022-01-22 07:08] LABS: Calcium 8.5 mg/dl (8.5-10.1); Creatinine Clr Calc Pharmacy 39.5 ml/min; Est GFR (African American) 53.8 ml/min; Est GFR (Non-African American) 46.5 ml/min; Potassium 3.3 mmol/L (3.5-5.1)
--- NOTE | 2022-01-22 07:55 | Hospitalist Progress Note ---
Date of Service January 22, 2022 Assessment & Plan (1) Subarachnoid hemorrhage: Plan: - Spoke with pt's family who holds POA and states they do not want neurosurgical intervention - Will continue medical management- BP monitoring, seizure treatment, pain relief -BPs stable at present, consider nicardipine drip if persistently elevated - CT Head repeat 01/21 with no interval change in left parietal lobe subarachnoid hemorrhage but disproportionately high edema -Still waiting for brain MRI, if this is not done by the afternoon will reevaluate with CT. - Neurology consult placed, appreciate recommendations: -1. ideally, we should obtain an MRI of the brain with and without contrast, to evaluate for tumor versus stroke. I understand the patient is currently a "DNR" and is overall prognosis is relatively poor given his advanced age. 2. No antiplatelet or anticoagulant medications at this time. 3. Agree with increasing levetiracetam to 750 mg twice daily. 4. Control blood pressure as you are doing aiming for a mean arterial pressure of 95-100. 5. given his advanced age and history of hemorrhage, he would not be a high- dose statin candidate. 6. We may consider additional testing depending his clinical course. (2) Seizure: Plan: - History of such after initial SAH in October 2019, placed on prophylactic Keppra at that time and has not had a seizure since. - Loaded with Keppra in ED as he did have 1 confirmed witnessed seizure. - Hold home dose, continue Keppra 1 g IV every 12 hours. - Continue to monitor. (3) Hypomagnesemia: Plan: - Magnesium repleted yesterday, at 1.9 today no additional mag needed at this time. (4) Atrial fibrillation: Plan: - Hold metoprolol, currently rate-controlled. No longer on anticoagulation. - S/p Watchman procedure (5) Hypertension: Plan: - Holding metoprolol - BPs stable at present (6) Coronary artery disease: Plan: - Chronic, stable. - Holding metoprolol, statin, nitroglycerin. (7) Hyperlipidemia: Plan: - Holding statin. (8) GERD (gastroesophageal reflux disease): Plan: - Hold Pepcid. (9) Diabetes mellitus, type II: Plan: - Hold metformin. (10) CKD (chronic kidney disease), stage III: Plan: - Renal function at baseline. - Nephrotoxins, renally dose medications as able. - Follow on a.m. BMP. (11) Cardiac pacemaker in situ: Plan: - Admit to PCU. - SCDs for DVT PPx. - DNR/DNI. Admission and Anticipated Discharge Date Admission Date: January 20, 2022 Supervising Physician Co-Signing Physician Notes I personally examined the patient and verified all pascual points of history and exam, discussed case, and agree with decision making with Dr Flores no meaningful HPI or ROS but seems to be more conversational and to a degree even somewhat appropriate. Eating dinner with proficiency. Family at the bedside. Vitals noted. He is awake and seems to be a bit more appropriate even answering some questions directly and appropriately. No distress HEENT normocephalic atraumatic mucous membranes moist. Breathing unlabored no accessory muscle use good effort. No focal neuro deficits and using gross and fine motor with proficiency as he is eating roast beef by himself with no assistance Intracranial bleedappears to be nonaneurysmal subarachnoid hemorrhage to the best we can tell, and given that he is not for any neurosurgical intervention, further work-up was precluded in that avenue. Given that the edema does not appear to be disproportionate to the bleed, MRI pending to rule out underlying mass lesion (he seems to be able to be more cooperative, I suspect to be a leg still for MRI soon) Control blood pressure (nimodipine at 30 mg every 4 hours is going well) supportive care, reorientation as possible (mentation seems to be improving) Seizure prophylaxis. Otherwise as above Subjective No new or meaningful HPI given from patient today. Patient does seem pleasantly confused and conversational. Denies any pain or shortness of breath. Seems to be comfortable and in good spirits. Nothing else to report at this time. Review of Systems Review of Systems: All systems reviewed & are unremarkable except as noted in HPI & below Physical Exam Constitutional: WD/WN, vitals as above Eyes: PERRL, conjunctivae normal, anicteric sclerae Neck: normal visual inspection Respiratory: normal respiratory effort, lungs clear to auscultation Cardiovascular: RRR, no murmur, no edema Gastrointestinal (Abdomen): normal bowel sounds, soft, nontender, no hepatosplenomegaly Musculoskeletal: Head/Neck/Chest: normocephalic and head atraumatic Skin: no rashes, warm and dry Neurologic: moves all extremities Psychiatric: Orientation: alert, oriented to person and cooperative; + not oriented to place and + not oriented to time Eye Contact: good eye contact Affect: euthymic affect Thought Process: + tangential thought process and + confabulations Results & Data Results & Data ([facility]) Vital Signs (Past 12 Hours) Vital Signs Temp Pulse Pulse Pulse Resp BP Pulse Ox 01/22/22 06:16 104 H 01/22/22 02:55 36.6 C 45 L 18 151/77 H 95 01/22/22 02:08 87 01/21/22 23:36 91 H 177/80 H 01/21/22 23:29 36.6 C 104 H 22 144/84 H 91
[2022-01-22] MEDS: SODIUM CHLORIDE 0.9% 1000ML 1,000 ML IV SCH (08:27)
--- NOTE | 2022-01-22 15:49 | CT Scan Report ---
CT head/brain wo con CLINICAL HISTORY: SAH recheck COMPARISON STUDY: No previous studies for comparison. CT DOSE: 691.05 mGy.cm TECHNIQUE: Standard CT of the Brain was performed without IV contrast. A dose lowering technique was utilized adhering to the principles of ALARA. FINDINGS: Compared to the previous examinations, the appearance of the suspected small subarachnoid h emorrhage remains unchanged. Surrounding edema is again seen. This absence of change consultant these 2 day s and surrounding edema suggest the possibility of underlying process. Again, MRI of the brain withou t and with contrast is recommended for further evaluation. No new hemorrhage or acute intracerebral pathology is identified. IMPRESSION: 1. No significant interval change as described above. Follow-up is again recommended. ACT 112: Negative or not required by law. Electronically signed by: Suman Mcwilliams M.D. 01/22/2022 3:46 PM
[2022-01-22] MEDS ORDERED: OLANZapine ZYDIS 5 MG ORALLY DIS. TAB PO STA (18:43)
[2022-01-22 18:52] LABS: Appearance Urine Clear (Clear); Bacteria Urine Automated Negative (Negative); Bilirubin Urine Negative (Negative); Blood Urine Trace (Negative); Color Urine Yellow; Glucose Urine UA 1+ (Negative); Ketones Urine Trace (Negative); Leukocyte Esterase Urine Negative (Negative); Nitrite Urine Negative (Negative); Protein Urine 1+ (Negative); RBC Urine Automated 0-4 /hpf (0-4); Specific Gravity Urine 1.012 (1.000-1.030); Urobilinogen Urine Negative (Negative)
--- NOTE | 2022-01-22 19:01 | Billing Data ---
Date of Service January 22, 2022 Coding Level of Care Code 89832 Subseq Hosp Care Lvl 3
[2022-01-23] MEDS: levETIRAcetam 750 MG in 0.9 % SODIUM CHLORIDE 100 ML IV SCH ×2 (01:48→15:17)
[2022-01-23] MEDS: niMODipine 30 MG CAP PO SCH ×6 (05:02→23:47)
[2022-01-23 07:39] LABS: Hematocrit (blood only) 34.1 % (42-52); Hemoglobin 11.8 g/dL (14.0-18.0); Mean Corpuscular Hemoglobin 30.3 pg (25-34); Mean Corpuscular Hgb Conc 34.6 g/dL (32-36); Mean Corpuscular Volume 87.7 fL (80-100); Mean Platelet Volume 8.8 fL (7.4-10.4); Platelet Count 195 K/uL (130-400); RDW Coefficient of Variation 14.1 % (11.5-14.5); RDW Standard Deviation 44.9 fL (36.4-46.3); Red Blood Count 3.89 M/uL (4.7-6.1); White Blood Count 9.51 K/uL (4.8-10.8)
--- NOTE | 2022-01-23 07:47 | Hospitalist Progress Note ---
Date of Service January 23, 2022 Assessment & Plan (1) Subarachnoid hemorrhage: Plan: - Spoke with pt's family who holds POA and states they do not want neurosurgical intervention - Will continue medical management- BP monitoring and management as below, seizure treatment - CT Head repeat 01/21 with no interval change in left parietal lobe subarachnoid hemorrhage but disproportionately high edema -No interval change on 01/22 CT -Brain MRI read 01/23 pending- per neurologist there is abnormal enhancement in area of hemorrhage but unclear if there is an underlying mass lesion - Neurology consult -Continue medical management- BP control -Recommending CT angiogram of head/neck but as family declining surgery, will defer at this time -MRA 2019 for previous SAH negative for any vascular lesion -Will have goals of care discussion with family again -At present, family would like rehab -PT/OT ordered (2) Hypertension: Plan: - BPs still high- SBPs 160s-180s/DBPs 70s-80s - Metoprolol tartrate 50 mg BID initiated today but poor BP control noted while HR decrease to 60s - Nimodipine 30 mg q4h, will continue now per neurology recommendation - Will reassess vital signs later in afternoon- if BP still elevated with SBP > 160 will treat with Enalapril over beta blockade to avoid bradycardia -Consider initiating nicardipine infusion if BPs remain persistently elevated (3) Seizure: Plan: - History of such after initial SAH in October 2019, placed on prophylactic Keppra at that time and has not had a seizure since. - Loaded with Keppra in ED as he did have 1 confirmed witnessed seizure - Hold home dose, continue Keppra 750 g q12 hours. Switched IV to PO today - Continue to monitor. No further seizures noted - Seizure precautions (4) Atrial fibrillation: Plan: - Currently rate-controlled. No longer on anticoagulation s/p Watchman (5) Hypomagnesemia: Plan: - 1.2 on 01/20, resolved to 1.7 s/p repletion (6) Coronary artery disease: Plan: - Chronic, stable. - Holding statin for hemorrhage - Resumed home metoprolol, may d/c as above (7) Hyperlipidemia: Plan: - Holding statin in setting of hemorrhage (8) GERD (gastroesophageal reflux disease): Plan: - Holding Pepcid PO (9) Diabetes mellitus, type II: Plan: - Hold metformin - Novolog ISS (10) CKD (chronic kidney disease), stage III: Plan: - Renal function at baseline, Cr 1.36 - Renally dose medications as able. - Trend BMP (11) Cardiac pacemaker in situ: Plan: FENGI: Easy to chew Code status: DNR/DNI DVT ppx: SCDs, hold chemoprophylaxis due to hemorrhage Isolation: None Dispo: Telemetry Admission and Anticipated Discharge Date Admission Date: January 20, 2022 Supervising Physician Co-Signing Physician Notes Attending attestation Pt seen and examined in concert with Dr. Gilliam. In agreement with the documented findings as noted in the resident documentation with any exceptions or additions as noted here. No acute complaints at present. AAOx1 On examination, S1/S2 nl RRR no MCG. CTAB. Abd NT/ND BS+ve Subarachnoid hemorrhage - no progression on imaging. MRI pending. PT/OT pending. Hypertension - improved w/ metoprolol 50mg BID. Continue nimodipine and add enalapril PRN Seizures - no witnessed episodes at present. Continue Keppra Else see resident documentation as noted. Subjective Per telemetry, pt remained in atrial fibrillation but rate-controlled overnight. Per GRAIN SHOVELER at bedside, pt did not have any behavioral disturbances overnight On evaluation, pt denies any headache, weakness or numbness. Interview limited by pt's mental status. He mentioned recently going to a shopping center yesterday afternoon. Does complain of some soreness in his back from laying in bed. Review of Systems Review of Systems: Per subjective Physical Exam Physical Exam: General: confused, in no acute distress. Head: Normocephalic, atraumatic ENT: PERRL, EOMI, no pharyngeal exudate, mucous membranes moist Chest: CTAB, no increased work of breathing Cardiac: Irregular rhythm, normal rate, no murmur, no JVD, normal peripheral pulses Abdominal: Soft, nontender, nondistended Extremities: Normal inspection, no peripheral edema or erythema, calves nontender to palpation Psych: Tangential thought processing Neuro: AO x1 to person only, no focal motor or sensory deficits on my exam, slight [id number] dysmetria, patellar hyporeflexia 1+ b/l Skin: no rash or erythema Results & Data Results & Data ([facility]) Vital Signs (Past 12 Hours) Vital Signs Temp Pulse Resp BP Pulse Ox 01/23/22 07:02 36.6 C 96 H 18 188/79 H 91 01/23/22 04:02 36.9 C 90 18 168/89 H 93 01/22/22 23:33 36.9 C 83 18 164/90 H 94 Resident Activity Tracking Resident Involvement: Resident Care Provided Care Provided: Adult [facility] Medicine
[2022-01-23 08:05] LABS: Creatinine Clr Calc Pharmacy 39.5 ml/min; Est GFR (African American) 53.8 ml/min; Est GFR (Non-African American) 46.5 ml/min; Potassium 3.2 mmol/L (3.5-5.1)
[2022-01-23] MEDS ORDERED: GADOBUTROL 65ML VIAL IV ONE (10:12)
[2022-01-23] MEDS ORDERED: DEXTROSE 50% 50 ML SYRINGE IV PRN (10:15)
[2022-01-23] MEDS ORDERED: GLUCOSE 10 TABS/TUBE PO PRN (10:15)
[2022-01-23] MEDS ORDERED: CARBOHYDRATES FOR HYPOGLYCEMIA PO PRN (10:15)
[2022-01-23] MEDS ORDERED: GLUCOSE 40% GEL 15 GM TUBE PO PRN (10:15)
[2022-01-23] MEDS ORDERED: GLUCAGON FOR INJ 1 MG VIAL IM PRN (10:15)
[2022-01-23] MEDS: METOPROLOL TARTRATE 50 MG TAB PO SCH ×2 (10:44→20:10)
--- NOTE | 2022-01-23 10:50 | Neurology Progress Note ---
Date of Service January 23, 2022 Assessment & Plan (1) Seizure: (2) SAH (subarachnoid hemorrhage): Plan: 86-year-old male presenting with subacute confusion, and seizure occurring in the context of small left parietal subarachnoid hemorrhage. Underlying dementia and history of atrial fibrillation and stroke noted as well. Brain MRI completed this morning reveals some abnormal contrast-enhancement in the area of the identified left parietal subarachnoid hemorrhage. I am uncertain if there is an underlying lesion here, however. Please follow-up with the radiologist's interpretation of this test as well. If there is a lesion, may require additional follow-up imaging to ensure stability. Otherwise, patient should continue with Keppra 750 mg IV every 12 hours. Would transition to p.o. when able to reliably take oral medication. Would remain off antithrombotic medication in light of subarachnoid hemorrhage. Pneumonia pain as ordered is reasonable in light of the subarachnoid hemorrhage, would continue with this medication as well. I also note this patient had an MRA of the head completed in October 2019 in the context of subarachnoid hemorrhage, and seizure activity. There was no evidence of aneurysm or other vascular lesion at that time. Would consider obtaining a CT angiogram of the head and neck during this hospitalization. However, I do note that patient is DNR without desire for more aggressive treatment or intervention. No further immediate recommendations. Admission and Anticipated Discharge Date Admission Date: January 20, 2022 Subjective Follow-up for seizure, subarachnoid hemorrhage The patient is an 86-year-old male who presented to the emergency department on January 20, 2022 for 3 to 4 days of altered mental status. He had a seizure during his assessment in the emergency department. A CT of the head at that time revealed a subtle acute subarachnoid hemorrhage of the left parietal lobe. This finding has been stable over several follow-up head CT's, done on January 21 and January 22. He was seen in neurological consultation with Dr. Steward on January 21. 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 He had a seizure around that time as well and was started on Keppra 500 mg twice daily. After his witnessed seizure in the emergency department above, he was given an additional loading dose of IV Keppra. His maintenance dosage has been increased to 750 mg IV every 12 hours. Patient does have some dementia at baseline. He does not have any specific complaints at this time, no headache or focal weakness. He is confused, however, likely related to his underlying dementia. Review of Systems Review of Systems: Unobtainable due to cognitive status Results & Data ([facility]) Vital Signs (Past 12 Hours) Vital Signs Temp Pulse Resp BP Pulse Ox 01/23/22 07:02 36.6 C 96 H 18 188/79 H 91 01/23/22 04:02 36.9 C 90 18 168/89 H 93 01/22/22 23:33 36.9 C 83 18 164/90 H 94 Laboratory Results A Keppra level from January 20, 2022 is pending. Today's labs reviewed. WBC 9.51, hemoglobin 11.8, hematocrit 34.1, platelet count 195, sodium 141, potassium 3.2, BUN 15, creatinine 1.36, glucose 169 Diagnostic Findings I independently reviewed this morning's brain MRI. Radiology report not available at this time. Diffusion-weighted sequences negative for acute or subacute infarct. There is a chronic right cerebellar lacunar infarct on axial T2 as well as chronic appearing pontine infarcts, right pontine tegmentum, left anterior portia. There is fairly extensive chronic small vessel ischemic disease. There is some postcontrast enhancement noted within the left parietal cortex, corresponding to the previous abnormalities identified on CT of the head. I am not sure if there is a discrete lesion in this area or if the enhancement is related to mild subarachnoid hemorrhage. Follow-up with radiology report regarding this finding. Exam (Neuro) Neurologic: Oriented to:: Person; negative Place or Time Memory: negative Short Term Intact Attention: negative Span Intact or Concentration Intact Speech Fluency: negative Dysarthria or Dysfluency Fund of Knowledge: Vocabulary; negative Current Events Cranial Nerves: Normal II, III, IV, , V, VII, VIII, IX, X, XI and XII Motor Strength: Normal Lower Extremities and Normal Upper Extremities Muscle Bulk/Involuntary Movements: No Involuntary Movements Coordination: Normal Coding Level of Care Code 15718 Subseq Hosp Care Lvl 2 Diagnoses Seizure R56.9 SAH (subarachnoid hemorrhage) I60.9
[2022-01-23] MEDS: INSULIN ASPART PER UNIT SC SCH ×3 (12:11→20:08)
--- NOTE | 2022-01-23 12:37 | Magnetic Resonance Report ---
MR brain wo/w con CLINICAL HISTORY: subarachnoid hemorrhage. COMPARISON STUDY: CT brain from 01/22/2022 and previous MR from 11/03/2019 TECHNIQUE: Multiplanar multisequence images of the brain were performed before and after Gadavist, 7 .5 mL of IV contrast. Diffusion weighted imaging and ADC mapping was also performed. FINDINGS: Extra-axial space: There is no evidence for a subdural hematoma, There are no extra-axial fluid alyson ections. Ventricles and cisterns: The ventricles are mildly dilated bilaterally. There is no evidence for mid line shift or mass effect. Parenchyma: On the noncontrast images, there is abnormal susceptibility artifact present on the axial T2 Star fast weighted imaging characteristic of the presence of underlying hemorrhage. This is at th e site of the small subarachnoid hemorrhage. No additional hemorrhages are identified. There is abnormal diffusion weighted imaging surrounding the site of hemorrhage corresponding to the edema present. There is normal brannon-white differentiation. There is mild cerebral cortical atrophy p resent. There is bright signal seen on FLAIR weighted sequences within the centrum semiovale and jevon ventricular white matter characteristic of remote small vessel disease. The midline structures are un remarkable. The posterior fossa structures appear normal. On postcontrast images, there is very minimal enhancement within the edema surrounding the site of he morrhage. This is most likely related to vasogenic enhancement. No focal ring enhancement suggestive of a primary or metastatic lesion is seen. No other sites of enhancement are identified. Osseous structures: The paranasal sinuses are well aerated. The mastoid air cells are well aerated. Soft tissues: No focal soft tissue abnormalities are identified. IMPRESSION: 1. MRI confirms the presence of central hemorrhage with surrounding edema at the site of small subara chnoid hemorrhage in the posterior left parietal lobe. 2. However, there is minimal surrounding vasogenic enhancement demonstrated. 3. Therefore repeat CT in one week is recommended to demonstrate for resolution. Daily CTs are not ne cessary unless the patient has a change in symptoms. ACT 112: Negative or not required by law. Electronically signed by: Suman Mcwilliams M.D. 01/23/2022 12:35 PM
[2022-01-24] MEDS: niMODipine 30 MG CAP PO SCH ×6 (04:39→23:40)
[2022-01-24] MEDS: levETIRAcetam 750 MG in 0.9 % SODIUM CHLORIDE 100 ML IV SCH (05:15)
[2022-01-24] MEDS ORDERED: ENALAPRILAT 1.25 MG in DEXTROSE 5% 25 ML IV STA (07:12)
[2022-01-24 07:41] LABS: Hematocrit (blood only) 34.7 % (42-52); Hemoglobin 12.1 g/dL (14.0-18.0); Mean Corpuscular Hemoglobin 30.6 pg (25-34); Mean Corpuscular Hgb Conc 34.9 g/dL (32-36); Mean Corpuscular Volume 87.6 fL (80-100); Mean Platelet Volume 9.3 fL (7.4-10.4); Platelet Count 184 K/uL (130-400); RDW Coefficient of Variation 14.1 % (11.5-14.5); RDW Standard Deviation 45.3 fL (36.4-46.3); Red Blood Count 3.96 M/uL (4.7-6.1); White Blood Count 10.17 K/uL (4.8-10.8)
[2022-01-24 08:02] LABS: BUN Creatinine Ratio 13.4 (10-20); Calcium 8.9 mg/dl (8.5-10.1); Creatinine Clr Calc Pharmacy 42.3 ml/min; Est GFR (African American) 58.5 ml/min; Est GFR (Non-African American) 50.5 ml/min; Potassium 3.4 mmol/L (3.5-5.1)
--- NOTE | 2022-01-24 08:44 | Hospitalist Progress Note ---
Date of Service January 24, 2022 Assessment & Plan (1) Subarachnoid hemorrhage: Plan: - Spoke with pt's family on 01/21 who holds POA and states they do not want neurosurgical intervention - Will continue medical management- BP monitoring and management as below, seizure treatment - CT Head repeat 01/21 with no interval change in left parietal lobe subarachnoid hemorrhage but disproportionately high edema -No interval change on 01/22 CT -Brain MRI 01/23- no new lesion/mass or focal findings noted, recommend f/u CT in 1 week - Neurology consulted -Continue medical management- BP control, continue nimodipine -Recommending CT angiogram of head/neck but as family declining surgery, will defer at this time -MRA 2019 for previous SAH negative for any vascular lesion -Goals of care discussion with family to be revisited today 01/24 -At present, family would like rehab -PT/OT ordered, awaiting evaluation (2) Hypertension: Plan: - BPs elevated but improving- SBPs 150s-160s/DBP 70s-80s over past 24 hours - Continue metoprolol tartrate 50 mg BID (home dose is metoprolol succinate 1000 mg qAM) - Continue nimodipine 30 mg q4h - Enalapril 1.25 IV q6h PRN for acutely elevated SBP > 170 - Consider initiating nicardipine drip for persistently elevated SBPs refractory to Enalapril (3) Seizure: Plan: - History of such after initial SAH in October 2019, placed on prophylactic Keppra at that time and has not had a seizure since - Loaded with Keppra in ED as he did have 1 confirmed witnessed seizure - Hold home dose, continue Keppra 750 g PO q12 hours - Continue to monitor. No further seizures noted - Seizure precautions (4) Atrial fibrillation: Plan: - Currently rate-controlled. No longer on anticoagulation s/p Watchman - Continue metoprolol tartrate 50 mg BID (5) Hypomagnesemia: Plan: - 1.2 on 01/20, resolved to 1.7 s/p repletion (6) Coronary artery disease: Plan: - Holding statin for hemorrhage - Continue metoprolol tartrate 50 mg BID (7) Hyperlipidemia: Plan: - Holding statin in setting of hemorrhage (8) GERD (gastroesophageal reflux disease): Plan: - Resumed daily Pepcid (9) Diabetes mellitus, type II: Plan: - Hold metformin - Novolog ISS (10) CKD (chronic kidney disease), stage III: Plan: - Renal function at baseline, Cr 1.36 - Renally dose medications as able. - Trend BMP Plan: FENGI: Easy to chew Code status: DNR/DNI DVT ppx: SCDs, hold chemoprophylaxis due to hemorrhage Isolation: None Dispo: Telemetry Admission and Anticipated Discharge Date Admission Date: January 20, 2022 Supervising Physician Co-Signing Physician Notes Attending attestation Pt seen and examined in concert with Dr. Gilliam. In agreement with the documented findings as noted in the resident documentation with any exceptions or additions as noted here. No new complaints overnight. AAOx1 VS reviewed. On examination, S1/S2 nl RRR no MCG. CTAB. Abd NT/ND BS+ve Subarachnoid hemorrhage - PT/OT, neurology consult. No aggressive interventions per family wishes. Consider repeat CT vs. CTA based on recurrence in history. Hypertension - improved w/ metoprolol 50mg BID but space to improve, so consider increase to 75mg if ongoing borderline BP. Continue nimodipine and add enalapril PRN Seizures - no witnessed episodes at present. Continue Keppra Else see resident documentation as noted. Subjective Per telemetry, pt remained in atrial fibrillation but rate-controlled overnight. No behavioral disturbances. On evaluation, pt denies any headache, vision change, weakness or numbness. Interview limited by pt's mental status. He states he was at home earlier this morning and arrived to this facility shortly afterward. Unable to recall the past few days or why he's in the hospital. Review of Systems 2 Review of Systems: Per subjective Physical Exam Physical Exam: General: confused, in no acute distress. Head: Normocephalic, atraumatic ENT: PERRL, EOMI, no pharyngeal exudate, mucous membranes moist Chest: CTAB, no increased work of breathing Cardiac: Irregular rhythm, normal rate, no murmur, no JVD, normal peripheral pulses Abdominal: Soft, nontender, nondistended Extremities: Normal inspection, no peripheral edema or erythema, calves nontender to palpation Psych: Tangential thought processing Neuro: AO x1 to person only, no focal motor or sensory deficits on my exam aside from slight distal LUE weakness- 4/5 strength, slight [id number] dysmetria, patellar reflexes 2+ b/l Skin: no rash or erythema Results & Data Results & Data ([facility]) Vital Signs (Past 12 Hours) Vital Signs Temp Pulse Pulse Resp BP Pulse Ox 01/24/22 07:32 72 01/24/22 06:48 36.9 C 98 H 18 170/83 H 92 01/24/22 03:08 36.5 C 62 18 162/78 H 92 01/24/22 00:35 58 L 01/23/22 22:32 36.5 C 72 18 152/69 H 92 Resident Activity Tracking Resident Involvement: Resident Care Provided Care Provided: Adult Hospital Medicine
[2022-01-24] MEDS: INSULIN ASPART PER UNIT SC SCH ×4 (08:48→20:43)
[2022-01-24] MEDS: METOPROLOL TARTRATE 50 MG TAB PO SCH ×2 (08:57→20:05)
[2022-01-24] MEDS ORDERED: POTASSIUM CHLORIDE CRTAB 20 MEQ TABCR PO ONE (09:00)
[2022-01-24] MEDS ORDERED: ACETAMINOPHEN 325 MG TAB PO PRN (10:18)
[2022-01-24] MEDS ORDERED: ENALAPRILAT 1.25 MG in DEXTROSE 5% 25 ML IV PRN (13:00)
[2022-01-24] MEDS: levETIRAcetam ORAL SOLN 100MG/ML PO SCH (17:55)
[2022-01-25] MEDS: niMODipine 30 MG CAP PO SCH ×6 (03:55→23:44)
[2022-01-25] MEDS: levETIRAcetam ORAL SOLN 100MG/ML PO SCH ×2 (03:55→16:40)
--- NOTE | 2022-01-25 08:04 | Hospitalist Progress Note ---
Date of Service January 25, 2022 Assessment & Plan (1) Subarachnoid hemorrhage: Plan: - Spoke with pt's family on 01/21 who holds POA and states they do not want neurosurgical intervention - Will continue medical management- BP monitoring and management as below, seizure treatment - CT Head repeat 01/21 with no interval change in left parietal lobe subarachnoid hemorrhage but disproportionately high edema -No interval change on 01/22 CT -Brain MRI 01/23- no new lesion/mass or focal findings noted, recommend f/u CT in 1 week - Neurology consulted -Continue medical management- BP control, continue nimodipine -Recommending CT angiogram of head/neck but as family declining surgery, will defer at this time -MRA 2019 for previous SAH negative for any vascular lesion -PT recommending inpatient rehab, OT recommending skilled facility -Will contact pt's son/POA regarding goals of care to assist in disposition planning (2) Hypertension: Plan: - BPs elevated but improving- SBPs 140s-150s/DBP 70s-80s over past 24 hours - Continue metoprolol tartrate 50 mg BID (home dose is metoprolol succinate 100 mg qAM) -May increase to 75 mg BID starting tonight for better BP control if HR stable and UZMA improves - Continue nimodipine 30 mg q4h - Enalapril 1.25 IV q6h PRN for acutely elevated SBP > 170 -Will avoid Enalapril use for now in setting of UZMA - Consider initiating nicardipine drip for persistently elevated SBPs refractory to Enalapril (3) CKD (chronic kidney disease), stage III: Plan: UZMA on CKD3 - Cr increase from 1.27 to 1.55 -Suspect this may be due to hypoperfusion of kidneys secondary to Enalapril/possibly metoprolol - Providing 500cc NSS fluids at maintenance, recheck BMP in afternoon - Renally dose medications as able. - Trend BMP (4) Seizure: Plan: - History of such after initial SAH in October 2019, placed on prophylactic Keppra at that time and has not had a seizure since - Loaded with Keppra in ED as he did have 1 confirmed witnessed seizure - Hold home dose, continue Keppra 750 g PO q12 hours - Continue to monitor. No further seizures noted - Seizure precautions (5) Atrial fibrillation: Plan: - Currently rate-controlled. No longer on anticoagulation s/p Watchman - Pt does have pacemaker - Continue metoprolol tartrate 50 mg BID (6) Hypomagnesemia: Plan: - 1.2 on 01/20, resolved to 1.7 s/p repletion (7) Coronary artery disease: Plan: - Holding statin for hemorrhage - Continue metoprolol tartrate 50 mg BID (8) Hyperlipidemia: Plan: - Holding statin in setting of hemorrhage (9) GERD (gastroesophageal reflux disease): Plan: - Resumed daily Pepcid (10) Diabetes mellitus, type II: Plan: - Hold metformin - Novolog ISS Plan: FENGI: Easy to chew Code status: DNR/DNI DVT ppx: SCDs, hold chemoprophylaxis due to hemorrhage Isolation: None Dispo: Telemetry Admission and Anticipated Discharge Date Admission Date: January 20, 2022 Supervising Physician Co-Signing Physician Notes Attending attestation Pt seen and examined in concert with Dr. Gilliam. In agreement with the documented findings as noted in the resident documentation with any exceptions or additions as noted here. No new complaints overnight. Feeling overall well. AAOx1 VS Reviewed. On examination, S1/S2 nl RRR no MCG. CTAB. Abd NT/ND BS+ve Subarachnoid hemorrhage - PT/OT, neurology consult. No aggressive interventions per family wishes. Stable mentation. Consider repeat CT in AM vs. continued clinical monitoring Hypertension - increased to metoprolol 75mg today. Close monitoring. Continue nimodipine and add enalapril PRN Seizures - no witnessed episodes at present. Continue Keppra Else see resident documentation as noted. Subjective Per telemetry, pt remained in atrial fibrillation but rate-controlled overnight. No behavioral disturbances. On evaluation, pt denies any headache, vision change, weakness or numbness. Able to engage somewhat more meaningfully in interview today, aware he has been in the hospital for the past few days. Review of Systems Review of Systems: Per subjective Physical Exam Physical Exam: General: confused, in no acute distress. Head: Normocephalic, atraumatic ENT: PERRL, EOMI, no pharyngeal exudate, mucous membranes moist Chest: CTAB, no increased work of breathing Cardiac: Irregular rhythm, normal rate, no murmur, no JVD, normal peripheral pulses Abdominal: Soft, nontender, nondistended Extremities: Normal inspection, no peripheral edema or erythema, calves nontender to palpation Neuro: AO x1 to person only, no focal motor or sensory deficits on my exam today, patellar reflexes 2+ b/l Skin: no rash or erythema Results & Data Results & Data ([facility]) Vital Signs (Past 12 Hours) Vital Signs Temp Pulse Pulse Resp BP BP Pulse Ox 01/25/22 07:00 51 L 01/25/22 04:03 36.8 C 72 18 143/77 H 92 01/24/22 23:46 50 L 01/24/22 23:35 36.4 C L 56 L 16 150/87 H 95 Resident Activity Tracking Resident Involvement: Resident Care Provided Care Provided: Adult Hospital Medicine
[2022-01-25] MEDS: INSULIN ASPART PER UNIT SC SCH ×4 (08:17→20:51)
[2022-01-25] MEDS: METOPROLOL TARTRATE 50 MG TAB PO SCH (08:27)
[2022-01-25] MEDS: FAMOTIDINE 20 MG TAB PO SCH (08:27)
[2022-01-25 08:41] LABS: Hematocrit (blood only) 33.9 % (42-52); Hemoglobin 11.8 g/dL (14.0-18.0); Mean Corpuscular Hemoglobin 30.9 pg (25-34); Mean Corpuscular Hgb Conc 34.8 g/dL (32-36); Mean Corpuscular Volume 88.7 fL (80-100); Platelet Count 203 K/uL (130-400); RDW Coefficient of Variation 14.3 % (11.5-14.5); RDW Standard Deviation 46.2 fL (36.4-46.3); Red Blood Count 3.82 M/uL (4.7-6.1); White Blood Count 8.79 K/uL (4.8-10.8)
[2022-01-25 08:55] LABS: BUN Creatinine Ratio 18.1 (10-20); Calcium 9.1 mg/dl (8.5-10.1); Creatinine Clr Calc Pharmacy 34.7 ml/min; Est GFR (Non-African American) 39.7 ml/min; Potassium 4.2 mmol/L (3.5-5.1)
[2022-01-25] MEDS ORDERED: SODIUM CHLORIDE 0.9% 500 ML IV SCH ×2 (10:00→18:30)
[2022-01-25 17:00] LABS: BUN Creatinine Ratio 20.1 (10-20); Calcium 8.5 mg/dl (8.5-10.1); Creatinine Clr Calc Pharmacy 36.1 ml/min; Est GFR (African American) 48.2 ml/min; Est GFR (Non-African American) 41.6 ml/min
[2022-01-25] MEDS: METOPROLOL TARTRATE 25 MG TAB PO SCH (20:31)
[2022-01-26] MEDS: niMODipine 30 MG CAP PO SCH ×6 (03:12→23:20)
[2022-01-26] MEDS: levETIRAcetam ORAL SOLN 100MG/ML PO SCH ×2 (06:22→17:00)
[2022-01-26 06:35] LABS: Hematocrit (blood only) 32.6 % (42-52); Hemoglobin 11.1 g/dL (14.0-18.0); Mean Corpuscular Hemoglobin 29.8 pg (25-34); Mean Corpuscular Volume 87.6 fL (80-100); Mean Platelet Volume 8.8 fL (7.4-10.4); Platelet Count 199 K/uL (130-400); RDW Coefficient of Variation 14.5 % (11.5-14.5); Red Blood Count 3.72 M/uL (4.7-6.1); White Blood Count 7.84 K/uL (4.8-10.8)
[2022-01-26 06:53] LABS: BUN Creatinine Ratio 19.5 (10-20); Calcium 8.6 mg/dl (8.5-10.1); Creatinine Clr Calc Pharmacy 34.9 ml/min; Est GFR (African American) 46.3 ml/min
[2022-01-26] MEDS: INSULIN ASPART PER UNIT SC SCH ×4 (08:12→20:12)
[2022-01-26] MEDS: METOPROLOL TARTRATE 25 MG TAB PO SCH ×2 (08:14→19:37)
[2022-01-26] MEDS: FAMOTIDINE 20 MG TAB PO SCH (08:14)
--- NOTE | 2022-01-26 09:36 | Hospitalist Progress Note ---
Date of Service January 26, 2022 Assessment & Plan (1) Subarachnoid hemorrhage: Plan: - Spoke with pt's family on 01/21 who holds POA and states they do not want neurosurgical intervention - Will continue medical management- BP monitoring and management as below, seizure treatment - CT Head repeat 01/21 with no interval change in left parietal lobe subarachnoid hemorrhage but disproportionately high edema -No interval change on 01/22 CT -Brain MRI 01/23- no new lesion/mass or focal findings noted, recommend f/u CT in 1 week - Neurology consulted -Continue medical management- BP control, continue nimodipine -Recommending CT angiogram of head/neck but as family declining surgery, will defer at this time -MRA 2019 for previous SAH negative for any vascular lesion -Spoke with pt's son/POA on 01/21 to discuss disposition planning -Case management sent referral to SNF, awaiting placement (2) Hypertension: Plan: - BPs stable in SBPs 140s-150s/DBP 70s-80s - Continue metoprolol tartrate 75 mg BID (home dose is metoprolol succinate 100 mg qAM) - Continue nimodipine 30 mg q4h -Will only remain on this medication for up to 21 days - Enalapril 1.25 IV q6h PRN for acutely elevated SBP > 170 -Will avoid Enalapril use for now in setting of UZMA -Anticipate discharging on metoprolol tartrate 75 mg BID + nimodipine 30 mg q4h -Consider adding CCB such as amlodipine in place of nimodipine for outpatient regimen (3) CKD (chronic kidney disease), stage III: Plan: UZMA on CKD3 - Cr stable 1.55 -> 1.49 -> 1.54, baseline ~1.2 -Suspect this may be due to hypoperfusion of kidneys secondary to Enalapril/possibly metoprolol - Encourage oral hydration - Renally dose medications as able. - Trend BMP (4) Seizure: Plan: - History of such after initial SAH in October 2019, placed on prophylactic Keppra at that time and has not had a seizure since - Loaded with Keppra in ED as he did have 1 confirmed witnessed seizure - Hold home dose, continue Keppra 750 g PO q12 hours - Continue to monitor. No further seizures noted - Seizure precautions (5) Atrial fibrillation: Plan: - Currently rate-controlled. No longer on anticoagulation s/p Watchman - Pt does have pacemaker - Continue metoprolol tartrate 75 mg BID (6) Hypomagnesemia: Plan: - 1.2 on 01/20, resolved to 1.7 s/p repletion (7) Coronary artery disease: Plan: - Holding statin for hemorrhage - Continue metoprolol tartrate 75 mg BID (8) Hyperlipidemia: Plan: - Holding statin in setting of hemorrhage (9) GERD (gastroesophageal reflux disease): Plan: - Continue daily Pepcid (10) Diabetes mellitus, type II: Plan: - Hold metformin - Novolog ISS Plan: FENGI: Easy to chew Code status: DNR/DNI DVT ppx: SCDs, hold chemoprophylaxis due to hemorrhage Isolation: None Dispo: Telemetry Admission and Anticipated Discharge Date Admission Date: January 20, 2022 Supervising Physician Co-Signing Physician Notes Attending attestation Pt seen and examined in concert with Dr. Gilliam. In agreement with the documented findings as noted in the resident documentation with any exceptions or additions as noted here. No new complaints. Feeling overall well. AAOx1 VS Reviewed. On examination, S1/S2 nl RRR no MCG. CTAB. Abd NT/ND BS+ve. CNII - XII grossly intact. Subarachnoid hemorrhage - PT/OT, neurology consult. No aggressive interventions per family wishes. Stable mentation. Consider repeat CT in AM vs. continued clinical monitoring. Pending placement w/ [facility] Hypertension - improved to 150s/80s - continue metoprolol 75mg today. Continue nimodipine (for up to 21 days total, then consider transition to amlodipine) Seizures - no witnessed episodes at present. Continue Keppra Else see resident documentation as noted. Subjective Pt denies any headaches, vision change, weakness or numbness. States he was at home yesterday. Feels well overall. Review of Systems Review of Systems: Per subjective Physical Exam Physical Exam: General: confused, in no acute distress. Head: Normocephalic, atraumatic ENT: PERRL, EOMI, mucous membranes moist Chest: CTAB, no increased work of breathing Cardiac: Irregular rhythm, normal rate, no murmur, no JVD, normal peripheral pulses Abdominal: Soft, nontender, nondistended Extremities: Normal inspection, no peripheral edema or erythema, calves nontender to palpation Neuro: AO x1 to person only, no focal motor or sensory deficits on my exam today, patellar reflexes 2+ b/l Skin: no rash or erythema Results & Data Results & Data ([facility]) Vital Signs (Past 12 Hours) Vital Signs Temp Pulse Pulse Pulse Resp BP BP 01/26/22 07:59 51 L 01/26/22 07:20 36.4 C L 56 L 19 161/71 H 01/26/22 03:12 36.7 C 84 20 138/86 01/25/22 23:40 37.0 C 55 L 18 122/75 01/25/22 23:18 53 L 01/25/22 23:08 36.7 C 55 L 18 129/69 Pulse Ox 01/26/22 07:59 01/26/22 07:20 92 01/26/22 03:12 96 01/25/22 23:40 96 01/25/22 23:18 01/25/22 23:08 92 Resident Activity Tracking Resident Involvement: Resident Care Provided Care Provided: Adult Hospital Medicine
[2022-01-27] MEDS: niMODipine 30 MG CAP PO SCH ×6 (04:07→23:47)
[2022-01-27] MEDS: levETIRAcetam ORAL SOLN 100MG/ML PO SCH ×2 (04:08→17:02)
[2022-01-27 06:27] LABS: Hematocrit (blood only) 32.7 % (42-52); Hemoglobin 10.8 g/dL (14.0-18.0); Mean Corpuscular Hemoglobin 29.5 pg (25-34); Mean Corpuscular Volume 89.3 fL (80-100); Platelet Count 201 K/uL (130-400); RDW Coefficient of Variation 14.3 % (11.5-14.5); RDW Standard Deviation 46.6 fL (36.4-46.3); Red Blood Count 3.66 M/uL (4.7-6.1); White Blood Count 7.02 K/uL (4.8-10.8)
[2022-01-27 06:52] LABS: BUN Creatinine Ratio 20.7 (10-20); Calcium 8.6 mg/dl (8.5-10.1); Creatinine Clr Calc Pharmacy 30.9 ml/min; Est GFR (Non-African American) 34.5 ml/min; Potassium 3.8 mmol/L (3.5-5.1)
[2022-01-27] MEDS: FAMOTIDINE 20 MG TAB PO SCH (08:24)
[2022-01-27] MEDS: METOPROLOL TARTRATE 25 MG TAB PO SCH ×2 (08:25→19:45)
[2022-01-27] MEDS: INSULIN ASPART PER UNIT SC SCH ×4 (08:47→19:54)
--- NOTE | 2022-01-27 10:17 | Hospitalist Progress Note ---
Date of Service January 27, 2022 Assessment & Plan (1) Subarachnoid hemorrhage: Plan: - Spoke with pt's family on 01/21 who holds POA and states they do not want neurosurgical intervention - Will continue medical management- BP monitoring and management as below, seizure treatment - CT Head repeat 01/21 with no interval change in left parietal lobe subarachnoid hemorrhage but disproportionately high edema -No interval change on 01/22 CT -Brain MRI 01/23- no new lesion/mass or focal findings noted, recommend f/u CT in 1 week -Consider repeating CT scan prior to discharge if he will be discharged prior to 01/30 - Neurology consulted -Continue medical management- BP control, continue nimodipine -Recommending CT angiogram of head/neck but as family declining surgery, will defer at this time -MRA 2019 for previous SAH negative for any vascular lesion -PT/OT recommended SNF care on discharge -Spoke with pt's son/POA on 01/21 to discuss disposition planning -Case management sent referral to SNF, awaiting placement. [facility] referral declined, [facility] pending (2) Hypertension: Plan: - BPs stable in SBPs 140s-150s/DBP 70s-80s - Continue metoprolol tartrate 75 mg BID (home dose is metoprolol succinate 100 mg qAM) - Continue nimodipine 30 mg q4h -Will only remain on this medication for up to 21 days - Avoiding PRN Enalapril use in setting of UZMA -Anticipate discharging on metoprolol tartrate 75 mg BID + nimodipine 30 mg q4h -Consider adding CCB such as amlodipine in place of nimodipine for outpatient regimen (3) CKD (chronic kidney disease), stage III: Plan: UZMA on CKD3 - Cr stable 1.54 -> 1.74, baseline ~1.2 -Suspect this may be due to hypoperfusion of kidneys secondary to Enalapril/possibly metoprolol - Encouraged oral hydration and IVF repletion- 1L NSS - Renally dose medications as able - Trend BMP (4) Seizure: Plan: - History of such after initial SAH in October 2019, placed on prophylactic Keppra at that time and has not had a seizure since - Loaded with Keppra in ED as he did have 1 confirmed witnessed seizure - Hold home dose, continue Keppra 750 g PO q12 hours - Continue to monitor. No further seizures noted - Seizure precautions (5) Atrial fibrillation: Plan: - Currently rate-controlled. No longer on anticoagulation s/p Watchman - Pt does have pacemaker - Continue metoprolol tartrate 75 mg BID (6) Hypomagnesemia: Plan: - 1.2 on 01/20, resolved to 1.7 s/p repletion (7) Coronary artery disease: Plan: - Holding statin for hemorrhage - Continue metoprolol tartrate 75 mg BID (8) Hyperlipidemia: Plan: - Holding statin in setting of hemorrhage (9) GERD (gastroesophageal reflux disease): Plan: - Continue daily Pepcid (10) Diabetes mellitus, type II: Plan: - Hold metformin - Novolog ISS Plan: FENGI: Easy to chew Code status: DNR/DNI DVT ppx: SCDs, hold chemoprophylaxis due to hemorrhage Isolation: None Dispo: Telemetry Admission and Anticipated Discharge Date Admission Date: January 20, 2022 Supervising Physician Co-Signing Physician Notes Patient seen and examined with PGY-1 Dr. Gilliam. Agree with history, exam findings, assessment and plan of care as outlined. In brief, Mr. Olsen is an 86 year old male with history of hypertension, CKD, seizures, atrial fibrillation, CAD, DM admitted with a new subarachnoid hemorrhage. VS and nursing notes reviewed. Well appearing. No acute distress. EOM in tact. Full strength in the upper and lower extremities. Heart with regular rate and rhythm. No edema Lungs are clear to auscultation in all lung reed. 1. Subarachnoid hemorrhage. Waiting for SNF. Will need follow up CT in 1 week. 2. Continue metoprolol tartrate 75mg BID, continue nimodipine 30mg q4h for a total of 21 days. Other chronic issues stable. Dispo: waiting for SNF bed. Medically stable for discharge. Subjective No acute events overnight. Pt denies any headaches, vision change, weakness or numbness. Better able to engage in interview today. Appeared to understand and be amenable when told his disposition planning for SNF was underway. Review of Systems Review of Systems: Per subjective Physical Exam Physical Exam: General: confused, in no acute distress. Head: Normocephalic, atraumatic ENT: PERRL, EOMI, mucous membranes moist Chest: CTAB, no increased work of breathing Cardiac: Irregular rhythm, normal rate, no murmur, no JVD, normal peripheral pulses Abdominal: Soft, nontender, nondistended Extremities: Normal inspection, no peripheral edema or erythema, calves nontender to palpation b/l Neuro: AOx1 to person only, no focal motor or sensory deficits on my exam today, patellar reflexes 2+ b/l Skin: no rash or erythema Results & Data Results & Data ([facility]) Vital Signs (Past 12 Hours) Vital Signs Temp Pulse Pulse Resp BP BP Pulse Ox 01/27/22 09:10 50 L 01/27/22 07:23 36.7 C 47 L 18 138/73 97 01/27/22 04:23 36.5 C 50 L 20 140/67 95 01/27/22 00:20 36.3 C L 58 L 18 141/76 H 95 Resident Activity Tracking Resident Involvement: Resident Care Provided Care Provided: Adult [facility]
[2022-01-27] MEDS ORDERED: SODIUM CHLORIDE 0.9% 1000ML 1,000 ML IV SCH (10:45)
[2022-01-28] MEDS: levETIRAcetam ORAL SOLN 100MG/ML PO SCH ×2 (04:26→17:10)
[2022-01-28] MEDS: niMODipine 30 MG CAP PO SCH ×6 (04:26→23:48)
[2022-01-28 07:20] LABS: Hematocrit (blood only) 34.4 % (42-52); Hemoglobin 11.8 g/dL (14.0-18.0); Mean Corpuscular Hemoglobin 30.3 pg (25-34); Mean Corpuscular Hgb Conc 34.3 g/dL (32-36); Mean Corpuscular Volume 88.2 fL (80-100); Platelet Count 233 K/uL (130-400); RDW Coefficient of Variation 14.3 % (11.5-14.5); RDW Standard Deviation 45.6 fL (36.4-46.3); White Blood Count 7.18 K/uL (4.8-10.8)
[2022-01-28 07:40] LABS: BUN Creatinine Ratio 21.2 (10-20); Calcium 8.7 mg/dl (8.5-10.1); Creatinine Clr Calc Pharmacy 34.4 ml/min; Est GFR (African American) 45.6 ml/min; Est GFR (Non-African American) 39.4 ml/min; Potassium 3.9 mmol/L (3.5-5.1)
[2022-01-28] MEDS: METOPROLOL TARTRATE 25 MG TAB PO SCH ×2 (08:11→21:12)
[2022-01-28] MEDS: FAMOTIDINE 20 MG TAB PO SCH (08:13)
[2022-01-28] MEDS: INSULIN ASPART PER UNIT SC SCH ×4 (08:27→21:20)
--- NOTE | 2022-01-28 10:10 | Hospitalist Progress Note ---
Date of Service January 28, 2022 Assessment & Plan (1) Subarachnoid hemorrhage: Plan: Con is an 86 year old male w/ PmHx of SAH in October 2019, afib s/p watchman procedure DM2, CKD stage III, sick sinus syndrome s/p cardiac pacemaker, CAD, carotid artery stenosis,ischemic cardiomyopathy, HTN, HLD, and GERDadmitted for subarachnoid hemorrhage. Subarachnoid hemorrhage: - Spoke with pt's family on 01/21 who holds POA and states they do not want neurosurgical intervention - Will continue medical management- BP monitoring and management as below, seizure treatment - CT Head repeat 01/21 with no interval change in left parietal lobe subarachnoid hemorrhage but disproportionately high edema -No interval change on 01/22 CT -Brain MRI 01/23- no new lesion/mass or focal findings noted, recommend f/u CT in 1 week -Consider repeating CT scan prior to discharge if he will be discharged prior to 01/30 - Neurology consulted -Continue medical management- BP control, continue nimodipine -Recommending CT angiogram of head/neck but as family declining surgery, will defer at this time -MRA 2019 for previous SAH negative for any vascular lesion -PT/OT recommended SNF care on discharge -Spoke with pt's son/POA on 01/21 to discuss disposition planning -Case management sent referral to SNF, awaiting placement. [facility] referral declined, [facility] pending Hypertension: - BPs stable in SBPs 140s-150s/DBP 70s-80s - Continue metoprolol tartrate 75 mg BID (home dose is metoprolol succinate 100 mg qAM) - Increased nimodipine to 60 mg q4h -Will only remain on this medication for up to 21 days - Avoiding PRN Enalapril use in setting of UZMA -Anticipate discharging on metoprolol tartrate 75 mg BID + nimodipine 60 mg q4h -Consider adding CCB such as amlodipine in place of nimodipine for outpatient regimen CKD (chronic kidney disease), stage III: UZMA on CKD3 - Cr stable 1.54 -> 1.56, baseline ~1.2 -Suspect this may be due to hypoperfusion of kidneys secondary to Enalapril/possibly metoprolol - Encouraged oral hydration and IVF repletion- 1L NSS - Renally dose medications as able - Trend BMP Seizure: - History of such after initial SAH in October 2019, placed on prophylactic Keppra at that time and has not had a seizure since - Loaded with Keppra in ED as he did have 1 confirmed witnessed seizure - Hold home dose, continue Keppra 750 g PO q12 hours - Continue to monitor. No further seizures noted - Seizure precautions Atrial fibrillation: - Currently rate-controlled. No longer on anticoagulation s/p Watchman - Pt does have pacemaker - Continue metoprolol tartrate 75 mg BID Hypomagnesemia: - 1.2 on 01/20, resolved to 1.7 s/p repletion Coronary artery disease: - Holding statin for hemorrhage - Continue metoprolol tartrate 75 mg BID Hyperlipidemia: - Holding statin in setting of hemorrhage GERD (gastroesophageal reflux disease): - Continue daily Pepcid Diabetes mellitus, type II: - Hold metformin - Novolog ISS FENGI: Easy to chew Code status: DNR/DNI DVT ppx: SCDs, hold chemoprophylaxis due to hemorrhage Isolation: None Dispo: Telemetry (2) Hypertension: (3) CKD (chronic kidney disease), stage III: (4) Seizure: (5) Atrial fibrillation: (6) Hypomagnesemia: (7) Coronary artery disease: (8) Hyperlipidemia: (9) GERD (gastroesophageal reflux disease): (10) Diabetes mellitus, type II: Admission and Anticipated Discharge Date Admission Date: January 20, 2022 Supervising Physician Co-Signing Physician Notes Patient seen and examined with PGY-1 Dr. Maddox. Agree with history, exam findings, assessment and plan of care as outlined. In brief, Mr. Olsen is an 86 year old male with history of hypertension, CKD, seizures, atrial fibrillation, CAD, DM admitted with a new subarachnoid hemorrhage. No complaints today. VS and nursing notes reviewed. Well appearing. No acute distress. EOM in tact. Full strength in the upper and lower extremities. Heart with regular rate and rhythm. No edema Lungs are clear to auscultation in all lung reed. 1. Subarachnoid hemorrhage. Waiting for SNF. Will need follow up CT Sunday. 2. Hypertension. Continue metoprolol tartrate 75mg BID, increase nimodipine t o 60mg q4h for a total of 21 days. Other chronic issues stable. Dispo: waiting for SNF bed. Medically stable for discharge. Subjective Patient seen at bedside this morning feeling well. Patient denies headache, changes in vision or hearing, nausea, vomiting. Review of Systems Review of Systems: Per subjective Physical Exam Constitutional: WD/WN, vitals as above Eyes: PERRL, conjunctivae normal, anicteric sclerae Respiratory: normal respiratory effort, lungs clear to auscultation Cardiovascular: RRR, no murmur, no edema Gastrointestinal (Abdomen): normal bowel sounds, soft, nontender, no hepatosplenomegaly Results & Data Results & Data ([facility]) Vital Signs (Past 12 Hours) Vital Signs Temp Pulse Pulse Pulse Resp BP BP 01/28/22 08:46 50 L 01/28/22 07:05 36.4 C L 52 L 16 171/76 H 01/28/22 03:29 36.4 C L 50 L 18 161/80 H 01/27/22 23:49 36.6 C 50 L 18 138/92 Pulse Ox 01/28/22 08:46 01/28/22 07:05 97 01/28/22 03:29 96 01/27/22 23:49 97 Resident Activity Tracking Resident Involvement: Resident Care Provided Care Provided: Adult Hospital Medicine
[2022-01-29] MEDS: levETIRAcetam ORAL SOLN 100MG/ML PO SCH ×2 (04:12→16:56)
[2022-01-29] MEDS: niMODipine 30 MG CAP PO SCH ×5 (04:12→20:34)
--- NOTE | 2022-01-29 06:54 | Hospitalist Progress Note ---
Date of Service January 29, 2022 Assessment & Plan (1) Subarachnoid hemorrhage: Plan: Con is an 86 year old male w/ PmHx of SAH in October 2019, afib s/p watchman procedure DM2, CKD stage III, sick sinus syndrome s/p cardiac pacemaker, CAD, carotid artery stenosis,ischemic cardiomyopathy, HTN, HLD, and GERDadmitted for subarachnoid hemorrhage. Subarachnoid hemorrhage: - Spoke with pt's family on 01/21 who holds POA and states they do not want neurosurgical intervention - Will continue medical management- BP monitoring and management as below, seizure treatment - CT Head repeat 01/21 with no interval change in left parietal lobe subarachnoid hemorrhage but disproportionately high edema -No interval change on 01/22 CT -Brain MRI 01/23- no new lesion/mass or focal findings noted, recommend f/u CT in 1 week -Repeat CT scan head ordered for 01/30. - Neurology consulted -Continue medical management- BP control, continue nimodipine -Recommending CT angiogram of head/neck but as family declining surgery, will defer at this time -MRA 2019 for previous SAH negative for any vascular lesion -PT/OT recommended SNF care on discharge -Spoke with pt's son/POA on 01/21 to discuss disposition planning -Case management sent referral to SNF, awaiting placement. [facility] referral declined, [facility] pending -Spoke to son, daughter, and primary contact today updated on plan and answered questions. Hypertension: - BPs stable in SBPs 140s-150s/DBP 70s-80s - Continue metoprolol tartrate 75 mg BID (home dose is metoprolol succinate 100 mg qAM) - Increased nimodipine to 60 mg q4h -Will only remain on this medication for up to 21 days - Avoiding PRN Enalapril use in setting of UZMA -Anticipate discharging on metoprolol tartrate 75 mg BID + nimodipine 60 mg q4h -Consider adding CCB such as amlodipine in place of nimodipine for outpatient regimen CKD (chronic kidney disease), stage III: UZMA on CKD3 - Cr stable 1.56 -> 1.43, baseline ~1.2 -Suspect this may be due to hypoperfusion of kidneys secondary to Enalapril/possibly metoprolol - Encouraged oral hydration and IVF repletion- 1L NSS - Renally dose medications as able - Trend BMP Seizure: - History of such after initial SAH in October 2019, placed on prophylactic Keppra at that time and has not had a seizure since - Loaded with Keppra in ED as he did have 1 confirmed witnessed seizure - Hold home dose, continue Keppra 750 g PO q12 hours - Continue to monitor. No further seizures noted - Seizure precautions Atrial fibrillation: - Currently rate-controlled. No longer on anticoagulation s/p Watchman - Pt does have pacemaker - Continue metoprolol tartrate 75 mg BID Hypomagnesemia: - 1.2 on 01/20, resolved to 1.7 s/p repletion Coronary artery disease: - Holding statin for hemorrhage - Continue metoprolol tartrate 75 mg BID Hyperlipidemia: - Holding statin in setting of hemorrhage GERD (gastroesophageal reflux disease): - Continue daily Pepcid Diabetes mellitus, type II: - Hold metformin - Novolog ISS FENGI: Easy to chew Code status: DNR/DNI DVT ppx: SCDs, hold chemoprophylaxis due to hemorrhage Isolation: None Dispo: Telemetry (2) Hypertension: (3) CKD (chronic kidney disease), stage III: (4) Seizure: (5) Atrial fibrillation: (6) Hypomagnesemia: (7) Coronary artery disease: (8) Hyperlipidemia: (9) GERD (gastroesophageal reflux disease): (10) Diabetes mellitus, type II: Admission and Anticipated Discharge Date Admission Date: January 20, 2022 Supervising Physician Co-Signing Physician Notes Patient seen and examined independently of PGY-1 Dr. Maddox. Agree with history, exam findings, assessment and plan of care as outlined. In brief, Mr. Olsen is an 86 year old male with history of hypertension, CKD, seizures, atrial fibrillation, CAD, DM admitted with a new subarachnoid hemorrhage. No complaints today. VS and nursing notes reviewed. Well appearing. No acute distress. EOM in tact. Full strength in the upper and lower extremities. Heart with regular rate and rhythm. No edema Lungs are clear to auscultation in all lung reed. 1. Subarachnoid hemorrhage. Waiting for SNF. Will need follow up CT Sunday. 2. Hypertension. Continue metoprolol tartrate 75mg BID (changed hold parameters since he has not been getting the AM dose, but has a pacer so would not get inappropriately bradycardic), continue nimodipine to 60mg q4h for a total of 21 days. Other chronic issues stable. Dispo: waiting for SNF bed. Medically stable for discharge. Subjective Patient seen at the bedside this morning without complaints. Denies headaches, dizziness, lightheadness, shortness of breath, chest pain. Review of Systems Review of Systems: Per subjective Physical Exam Constitutional: WD/WN, vitals as above Eyes: PERRL, conjunctivae normal, anicteric sclerae Respiratory: normal respiratory effort, lungs clear to auscultation Cardiovascular: RRR, no murmur, no edema Gastrointestinal (Abdomen): normal bowel sounds, soft, nontender, no hepatosplenomegaly Results & Data Results & Data ([facility]) Vital Signs (Past 12 Hours) Vital Signs Temp Pulse Resp BP BP Pulse Ox 01/29/22 03:12 36.7 C 50 L 17 156/75 H 98 01/28/22 23:44 36.6 C 16 140/85 94 01/28/22 19:23 36.3 C L 60 17 154/70 H 95 Resident Activity Tracking Resident Involvement: Resident Care Provided Care Provided: Adult [facility] Medicine
[2022-01-29 07:29] LABS: Hematocrit (blood only) 33.8 % (42-52); Hemoglobin 11.3 g/dL (14.0-18.0); Mean Corpuscular Hemoglobin 29.4 pg (25-34); Mean Corpuscular Hgb Conc 33.4 g/dL (32-36); Platelet Count 237 K/uL (130-400); RDW Coefficient of Variation 14.5 % (11.5-14.5); RDW Standard Deviation 46.1 fL (36.4-46.3); Red Blood Count 3.84 M/uL (4.7-6.1); White Blood Count 7.72 K/uL (4.8-10.8)
[2022-01-29 07:55] LABS: BUN Creatinine Ratio 20.3 (10-20); Calcium 8.8 mg/dl (8.5-10.1); Creatinine Clr Calc Pharmacy 37.6 ml/min; Est GFR (African American) 50.7 ml/min; Est GFR (Non-African American) 43.7 ml/min; Potassium 3.8 mmol/L (3.5-5.1)
[2022-01-29] MEDS: INSULIN ASPART PER UNIT SC SCH ×4 (08:06→20:34)
[2022-01-29] MEDS: FAMOTIDINE 20 MG TAB PO SCH (08:19)
[2022-01-29] MEDS: METOPROLOL TARTRATE 25 MG TAB PO SCH ×2 (08:20→20:35)
[2022-01-30] MEDS: niMODipine 30 MG CAP PO SCH ×6 (00:15→20:26)
[2022-01-30] MEDS: levETIRAcetam ORAL SOLN 100MG/ML PO SCH ×2 (05:02→17:01)
[2022-01-30 06:27] LABS: Hemoglobin 11.7 g/dL (14.0-18.0); Mean Corpuscular Hemoglobin 29.3 pg (25-34); Mean Corpuscular Hgb Conc 33.4 g/dL (32-36); Mean Corpuscular Volume 87.7 fL (80-100); Mean Platelet Volume 8.7 fL (7.4-10.4); Platelet Count 240 K/uL (130-400); RDW Coefficient of Variation 14.5 % (11.5-14.5); RDW Standard Deviation 46.2 fL (36.4-46.3); Red Blood Count 3.99 M/uL (4.7-6.1); White Blood Count 8.83 K/uL (4.8-10.8)
[2022-01-30 06:52] LABS: BUN Creatinine Ratio 19.2 (10-20); Calcium 8.9 mg/dl (8.5-10.1); Creatinine Clr Calc Pharmacy 34.8 ml/min; Est GFR (African American) 47.4 ml/min; Est GFR (Non-African American) 40.9 ml/min; Potassium 3.9 mmol/L (3.5-5.1)
--- NOTE | 2022-01-30 07:01 | Hospitalist Progress Note ---
Date of Service January 30, 2022 Assessment & Plan (1) Subarachnoid hemorrhage: Plan: Con is an 86 year old male w/ PmHx of SAH in October 2019, afib s/p watchman procedure DM2, CKD stage III, sick sinus syndrome s/p cardiac pacemaker, CAD, carotid artery stenosis,ischemic cardiomyopathy, HTN, HLD, and GERDadmitted for subarachnoid hemorrhage. ()Subarachnoid hemorrhage: - Discussion with pt's family on 01/21 who holds POA states they do not want neurosurgical intervention - Will continue medical management- BP monitoring and management as below, seizure treatment - CT Head repeat 01/21 with no interval change in left parietal lobe subarachnoid hemorrhage but disproportionately high edema -No interval change on 01/22 CT -Brain MRI 01/23- no new lesion/mass or focal findings noted, recommend f/u CT in 1 week -Repeat CT scan head 01/30 stable exam unchanged appearance - Neurology consulted -Continue medical management- BP control, continue nimodipine 21 days, started 01/21. Keep off antiplatelet anticoagulants -Recommended CT angiogram of head/neck but as family declining surgery, will defer at this time -MRA 2019 for previous SAH negative for any vascular lesion -PT/OT recommended SNF care on discharge -Spoke with pt's son/POA on 01/21 to discuss disposition planning -Case management sent referral to SNF, awaiting placement. [facility] Care referral declined, reaching out to Sandy Kathleen ()Hypertension: - BPs stable in SBPs 140s-150s/DBP 70s-80s - Continue metoprolol tartrate 75 mg BID (home dose is metoprolol succinate 100 mg qAM) - Increased nimodipine to 60 mg q4h -Will only remain on this medication for up to 21 days, started 01/21 - Avoiding PRN Enalapril use in setting of UZMA -Anticipate discharging on metoprolol tartrate 75 mg BID + nimodipine 60 mg q4h -Consider adding CCB such as amlodipine in place of nimodipine for outpatient regimen ()CKD (chronic kidney disease), stage III: UZMA on CKD3 - Cr stable 1.56 -> 1.51, baseline ~1.2 -Suspect this may be due to hypoperfusion of kidneys secondary to Enalapril/possibly metoprolol - Encouraged oral hydration and IVF repletion- 1L NSS - Renally dose medications as able - Trend BMP ()Seizure: - History of such after initial SAH in October 2019, placed on prophylactic Keppra at that time and has not had a seizure since - Loaded with Keppra in ED as he did have 1 confirmed witnessed seizure - continue Keppra 750 g PO q12 hours (home dose keppra 500mg PO BID) - Continue to monitor. No further seizures noted - Seizure precautions ()Atrial fibrillation: - Currently rate-controlled. No longer on antiplatelet anticoagulation s/p Watchman - Pt does have pacemaker - Continue metoprolol tartrate 75 mg BID ()Hypomagnesemia: - 1.2 on 01/20, resolved to 1.7 s/p repletion ()Coronary artery disease: - Holding statin for hemorrhage - Continue metoprolol tartrate 75 mg BID ()Hyperlipidemia: - Holding statin in setting of hemorrhage ()GERD (gastroesophageal reflux disease): - Continue daily Pepcid ()Diabetes mellitus, type II: - Hold metformin - Novolog ISS FENGI: Easy to chew Code status: DNR/DNI DVT ppx: SCDs, hold chemoprophylaxis due to hemorrhage Isolation: None Dispo: Telemetry (2) Hypertension: (3) CKD (chronic kidney disease), stage III: (4) Seizure: (5) Atrial fibrillation: (6) Hypomagnesemia: (7) Coronary artery disease: (8) Hyperlipidemia: (9) GERD (gastroesophageal reflux disease): (10) Diabetes mellitus, type II: Admission and Anticipated Discharge Date Admission Date: January 20, 2022 Supervising Physician Co-Signing Physician Notes Resident Physician Supervision Note: I interviewed and examined the patient. Discussed with Dr. Wolfe and agree with findings and plan as documented in the note. Any exceptions or clarifications are listed here: None Patient was very pleasant has some memory impairment has no focal complaints or problems. Attempts of procuring home supportive care is underway by case management to have the patient return home to a safe environment. Patient is on medications for subarachnoid hemorrhage as recommended by neurology. He should complete somewhere around February 11 for the nimodipine. At that point time consider amlodipine if needed for blood pressure control. Patient's physical exam is fairly stable exception of his memory loss which seems to be more noticed when confrontational testing but not notices much in casual conversation his heart is regular lungs are clear neurologically is without deficits Continue supportive care blood pressure control and risk reduction with amlodipine with case management helping coordinate home supportive services Documented By: Kalia Trevino MD Subjective Patient seen at bedside calm comfortable cooperative, states he slept at well had 1 BM yesterday first one in several weeks states it was of normal texture. Patient states he had a mild headache last night which resolved on its own. He understands we are currently awaiting placement for rehab. Review of Systems Review of Systems: Negative fever chills Negative headache dizziness Negative chest pain palpitations SOB Negative nausea vomitting diarrhea constipation Negative numbness tingling rash swelling Physical Exam Constitutional: WD/WN, vitals as above Eyes: PERRL, conjunctivae normal, anicteric sclerae ENMT: external ear and nose normal, oropharynx normal Neck: trachea midline, no thyromegaly Respiratory: normal respiratory effort, lungs clear to auscultation Cardiovascular: RRR, no murmur, no edema Chest (Breasts): Chest: normal inspection of chest Gastrointestinal (Abdomen): normal bowel sounds, soft, nontender, no hepatosplenomegaly Skin: no rashes, warm and dry Neurologic: CN's II-XI intact bilaterally Results & Data Results & Data ([facility]) Vital Signs (Past 12 Hours) Vital Signs Temp Pulse Resp BP Pulse Ox 01/30/22 03:40 36.2 C L 50 L 17 168/85 H 97 01/29/22 23:22 36.3 C L 53 L 17 150/79 H 98 Laboratory Results 01/30/22 01/30/22 01/30/22 Range/Units 08:15 06:16 06:16 WBC 8.83 (4.8-10.8) K/uL RBC 3.99 L (4.7-6.1) M/uL Hgb 11.7 L (14.0-18.0) g/dL Hct 35.0 L (42-52) % MCV 87.7 (80-100) fL MCH 29.3 (25-34) pg MCHC 33.4 (32-36) g/dL RDW Std Deviation 46.2 (36.4-46.3) fL RDW Coeff of Crispin 14.5 (11.5-14.5) % Plt Count 240 (130-400) K/uL MPV 8.7 (7.4-10.4) fL Sodium 140 (136-145) mmol/L Potassium 3.9 (3.5-5.1) mmol/L Chloride 108 H (98-107) mmol/L Carbon Dioxide 23 (21-32) mmol/L Anion Gap 9 (3-11) BUN 29 H (6-23) mg/dl Creatinine 1.51 H (0.6-1.4) mg/dl Est Cr Clr Drug Dosing 34.8 ml/min Est GFR ( Amer) 47.4 ml/min Est GFR (Non-Af Amer) 40.9 ml/min BUN/Creatinine Ratio 19.2 (10-20) Glucose 124 H (70-99(Fasting)) mg/dl POC Glucose 153 H (70-99) mg/dl Calcium 8.9 (8.5-10.1) mg/dl 01/29/22 01/29/22 01/29/22 Range/Units 20:27 16:18 11:09 WBC (4.8-10.8) K/uL RBC (4.7-6.1) M/uL Hgb (14.0-18.0) g/dL Hct (42-52) % MCV (80-100) fL MCH (25-34) pg MCHC (32-36) g/dL RDW Std Deviation (36.4-46.3) fL RDW Coeff of Crispin (11.5-14.5) % Plt Count (130-400) K/uL MPV (7.4-10.4) fL Sodium (136-145) mmol/L Potassium (3.5-5.1) mmol/L Chloride (98-107) mmol/L Carbon Dioxide (21-32) mmol/L Anion Gap (3-11) BUN (6-23) mg/dl Creatinine (0.6-1.4) mg/dl Est Cr Clr Drug Dosing ml/min Est GFR ( Amer) ml/min Est GFR (Non-Af Amer) ml/min BUN/Creatinine Ratio (10-20) Glucose (70-99(Fasting)) mg/dl POC Glucose 91 132 H 182 H (70-99) mg/dl Calcium (8.5-10.1) mg/dl Diagnostic Findings Impressions Abdomen/Pelvis CT 01/20/22 12:08 CT abd pelvis IV con only CLINICAL HISTORY: diarrhea, ams COMPARISON STUDY: No previous studies for comparison. CT DOSE: 1107.75 mGycm TECHNIQUE: Standard CT of the Abdomen and Pelvis was performed with IV contrast. A dose lowering technique was utilized adhering to the principles of ALARA. Contrast Volume: Optiray 320, 94 ml. The patient did not receive oral contrast. FINDINGS: Lung base: The lung bases are clear. There is moderate cardiomegaly with cardiac pacer in place. Abdominal cavity: There is no evidence for abdominal mass, adenopathy or ascites. Liver: There is homogeneous attenuation of the liver parenchyma. There is no evidence for enhancing mass lesion. Spleen: There is homogeneous attenuation of the splenic parenchyma. There is no enhancing mass lesion. Pancreas: There is homogeneous attenuation of the pancreatic parenchyma. There is no evidence for mass lesion or peripancreatic fluid collection. Gall Bladder: The gallbladder is well distended with no evidence for intraluminal calculi, wall thickening or pericholecystic edema. Adrenal glands: The adrenal glands are normal in size and attenuation. There is no evidence for enhancing mass lesion. Kidneys: There is a horseshoe kidney present. There is no evidence for renal calculus or hydronephrosis. There is no evidence for enhancing mass. Bowel: The bowel loops are normally placed within the abdomen and pelvis without evidence for dilatation or obstruction. There is no evidence for mass lesion. There is extensive sigmoid diverticulosis without evidence for diverticulitis. No significant fluid is seen within the colon. There are no inflammatory changes present. There is no evidence for free air. Bladder: The bladder is distended with an abnormal thin pleural line extending along the right lateral wall. The presence of an underlying mass cannot be excluded. This is best seen on image 392. There is also impingement upon the floor the bladder related to an enlarged prostate. : There is no evidence for pelvic mass or adenopathy. There is no evidence for pelvic ascites. The prostate is mildly enlarged. Vasculature: There is no evidence for aneurysmal dilatation of the abdominal aorta. Extensive atherosclerotic calcification is present. Osseous structures: Degenerative changes are seen within the spine. IMPRESSION: 1. Extensive sigmoid diverticulosis without evidence for diverticulitis. 2. No fluid levels within the colon. 3. Suspicion of a mass involving the lateral wall of the bladder on the right. Follow-up is necessary. 4. Incidental note of a horseshoe kidney. 5. Additional nonacute findings are delineated above. ACT 112: Negative or not required by law. Electronically signed by: Suman Mcwilliams M.D. 01/20/2022 1:38 PM Chest X-Ray 01/20/22 12:09 XR chest 1V portable CLINICAL HISTORY: SEPSIS TECHNIQUE: Single frontal radiograph of the chest was obtained. Comparison: Comparison is made to chest radiograph 05/13/2020 FINDINGS: Dual lead pacemaker is seen. Cardiomegaly is noted. The lungs are clear. No evidence of pleural effusion or pneumothorax. IMPRESSION: No acute chest disease. ACT 112: Negative or not required by law. Electronically signed by: Domo Key M.D. 01/20/2022 12:51 PM Brain MRI 01/23/22 09:11 MR brain wo/w con CLINICAL HISTORY: subarachnoid hemorrhage. COMPARISON STUDY: CT brain from 01/22/2022 and previous MR from 11/03/2019 TECHNIQUE: Multiplanar multisequence images of the brain were performed before and after Gadavist, 7.5 mL of IV contrast. Diffusion weighted imaging and ADC mapping was also performed. FINDINGS: Extra-axial space: There is no evidence for a subdural hematoma, There are no extra-axial fluid collections. Ventricles and cisterns: The ventricles are mildly dilated bilaterally. There is no evidence for midline shift or mass effect. Parenchyma: On the noncontrast images, there is abnormal susceptibility artifact present on the axial T2 Star fast weighted imaging characteristic of the presence of underlying hemorrhage. This is at the site of the small subarachnoid hemorrhage. No additional hemorrhages are identified. There is abnormal diffusion weighted imaging surrounding the site of hemorrhage corresponding to the edema present. There is normal brannon-white differentiation. There is mild cerebral cortical atrophy present. There is bright signal seen on FLAIR weighted sequences within the centrum semiovale and periventricular white matter characteristic of remote small vessel disease. The midline structures are unremarkable. The posterior fossa structures appear normal. On postcontrast images, there is very minimal enhancement within the edema surrounding the site of hemorrhage. This is most likely related to vasogenic enhancement. No focal ring enhancement suggestive of a primary or metastatic lesion is seen. No other sites of enhancement are identified. Osseous structures: The paranasal sinuses are well aerated. The mastoid air cells are well aerated. Soft tissues: No focal soft tissue abnormalities are identified. IMPRESSION: 1. MRI confirms the presence of central hemorrhage with surrounding edema at the site of small subarachnoid hemorrhage in the posterior left parietal lobe. 2. However, there is minimal surrounding vasogenic enhancement demonstrated. 3. Therefore repeat CT in one week is recommended to demonstrate for resolution. Daily CTs are not necessary unless the patient has a change in symptoms. ACT 112: Negative or not required by law. Electronically signed by: Suman Mcwilliams M.D. 01/23/2022 12:[address] 01/30/22 10:00 CT head/brain wo con CLINICAL HISTORY: 86 years-old Male with Subarachnoid hemorrhage progress. Fo llow-up study in a patient with history of subarachnoid hemorrhage. TECHNIQUE: Multiple axial CT images of the head were obtained without contrast. A dose lowering technique was utilized adhering to the principles of ALARA. CT DOSE: 614.27 mGy.cm COMPARISON: Brain MRI 01/23/2022, head CT 01/22/2022 FINDINGS: Age-related involutional changes. White matter hypodensities suggestive of ch ronic microvascular ischemic disease. Unchanged appearance of the cortically- based hyperdensity within the left parietal lobe with underlying left parietal edema. No midline shift or intraparenchymal hemorrhage. Tiny chronic lacunar infarcts of the pontine brainstem, cerebellum and basal ganglia. No acute or subacute territorial infarct. The calvarium is intact. The paranasal sinuses, mastoid air cells, and middle ear cavities are clear. IMPRESSION: 1. Stable exam with unchanged appearance of the cortically-based hyperdensity of the left parietal lobe suggestive of subarachnoid hemorrhage versus laminar necrosis/petechial hemorrhage with adjacent left parietal lobe edema. 2. No midline shift. 3. Involutional changes with chronic microvascular ischemic disease. ACT 112: Negative or not required by law. The above report was generated using voice recognition software. It may contain grammatical, syntax or spelling errors. Electronically signed by: Elder Spann M.D. 01/30/2022 10:13 AM Medications Administered Current Inpatient Medications Acetaminophen (Acetaminophen 325 Mg Tab) 650 mg PO Q4H PRN PRN Reason: Pain Stop: 02/23/22 10:17 Last Admin: 01/24/22 10:31 Dose: 650 mg Documented by: Dextrose (Dextrose 50% 50 Ml Syringe) 25 - 50 ml IV UD PRN; Protocol PRN Reason: Hypoglycemia Protocol Stop: 02/22/22 10:14 Famotidine (Famotidine 20 Mg Tab) 20 mg PO QAM [facility] Stop: 02/24/22 08:59 Last Admin: 01/30/22 08:46 Dose: 20 mg Documented by: Glucagon (Glucagon For Inj 1 Mg Vial) 1 mg IM UD PRN; Protocol PRN Reason: Hypoglycemia Protocol Stop: 02/22/22 10:14 Glucose (Glucose 40% Gel 15 Gm Tube) 15 - 30 gm PO UD PRN; Protocol PRN Reason: Hypoglycemia Protocol Stop: 02/22/22 10:14 Glucose (Glucose 10 Tabs/Tube) 4 - 8 tabs PO UD PRN; Protocol PRN Reason: Hypoglycemia Protocol Stop: 02/22/22 10:14 Enalaprilat 1.25 mg/ Dextrose 26 mls @ 100 mls/hr IV Q6H PRN PRN Reason: hypertension SBP > 170 Stop: 02/23/22 12:59 Insulin Aspart (Insulin Aspart Per Unit) 0 units SC ACHS [facility] Stop: 02/22/22 11:29 Last Admin: 01/30/22 08:47 Dose: 3 units Documented by: Levetiracetam (Levetiracetam Oral Soln 100mg/Ml) 750 mg PO Q12H [facility] Stop: 02/23/22 16:59 Last Admin: 01/30/22 05:02 Dose: 750 mg Documented by: Metoprolol Tartrate (Metoprolol Tartrate 25 Mg Tab) 75 mg PO BID [facility] Stop: 02/24/22 20:59 Last Admin: 01/30/22 08:46 Dose: 75 mg Documented by: Miscellaneous (Carbohydrates For Hypoglycemia ) 15 - 30 gm PO UD PRN PRN Reason: Hypoglycemia Treatment Stop: 02/22/22 10:14 Nimodipine (Nimodipine 30 Mg Cap) 60 mg PO Q4 [facility] Stop: 02/27/22 11:59 Last Admin: 01/30/22 08:46 Dose: 60 mg Documented by: Ondansetron HCl (Ondansetron Inj 2 Mg/Ml 2 Ml Vial) 4 mg IV Q6H PRN PRN Reason: Nausea Stop: 02/19/22 16:15 Polyethylene Glycol (Polyethylene (Miralax) 17 Gm Pack) 17 gm PO DAILY PRN PRN Reason: Constipation Stop: 03/01/22 10:42 Resident Activity Tracking Resident Involvement: Resident Care Provided Care Provided: Adult Hospital Medicine
[2022-01-30] MEDS: FAMOTIDINE 20 MG TAB PO SCH (08:46)
[2022-01-30] MEDS: METOPROLOL TARTRATE 25 MG TAB PO SCH ×2 (08:46→20:27)
[2022-01-30] MEDS: INSULIN ASPART PER UNIT SC SCH ×4 (08:47→21:10)
--- NOTE | 2022-01-30 10:14 | CT Scan Report ---
CT head/brain wo con CLINICAL HISTORY: 86 years-old Male with Subarachnoid hemorrhage progress. Follow-up study in a odell ent with history of subarachnoid hemorrhage. TECHNIQUE: Multiple axial CT images of the head were obtained without contrast. A dose lowering tech nique was utilized adhering to the principles of ALARA. CT DOSE: 614.27 mGy.cm COMPARISON: Brain MRI 01/23/2022, head CT 01/22/2022 FINDINGS: Age-related involutional changes. White matter hypodensities suggestive of chronic microvascular isch emic disease. Unchanged appearance of the cortically-based hyperdensity within the left parietal lobe with underlying left parietal edema. No midline shift or intraparenchymal hemorrhage. Tiny chronic l acunar infarcts of the pontine brainstem, cerebellum and basal ganglia. No acute or subacute territor ial infarct. The calvarium is intact. The paranasal sinuses, mastoid air cells, and middle ear cavities are clear . IMPRESSION: 1. Stable exam with unchanged appearance of the cortically-based hyperdensity of the left parietal lo be suggestive of subarachnoid hemorrhage versus laminar necrosis/petechial hemorrhage with adjacent l eft parietal lobe edema. 2. No midline shift. 3. Involutional changes with chronic microvascular ischemic disease. ACT 112: Negative or not required by law. The above report was generated using voice recognition software. It may contain grammatical, syntax o r spelling errors. Electronically signed by: Elder Spann M.D. 01/30/2022 10:13 AM
--- NOTE | 2022-01-30 10:27 | Neurology Progress Note ---
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 No surgery was performed. He was on anticoagulation at the time this was discontinued. He was also noted to have memory problems at that time. Eventually was put back on aspirin at [facility]. Sometime in the 1st full week of January of this year, he had progressive confusion for gait disturbance. He was noted to have a subarachnoid hemorrhage and a left posterior parietal hemorrhage with some surrounding edema. his mental status has been much improved during this hospitalization. Family does not want any neurosurgical procedure done and I believe his hemorrhage is starting to absorb some. On exam today he has no focal neurologic findings meningeal signs or encephalopathy. I still believe he has a bottle underlying dementia. The patient had witnessed seizure activity in the emergency room January 20 on admission. He has been on levetiracetam since. Recommendations: 1. keep off antiplatelet and anticoagulant medication for now. Patient does have chronic atrial fibrillation with a pacemaker. 2. continue levetiracetam for now at 750 mg twice daily. 3. Increase activity as able and we are awaiting placement ( versus going home with home health) 4. I have no further neurologic testing or treatment recommendations to make at this time. Please contact me if I can be of further assistance on this case. I can follow up as an outpatient. Overall, I spent a total of 35 minutes with this case include review of records, review of CT and MRI films, direct evaluation of the patient at bedside, and discussion of the case with the patient and RN at bedside. Admission and Anticipated Discharge Date Admission Date: January 20, 2022 Subjective patient has no complaint of headache. He does have some low back pain noted when he went out for his CT scan today and was being transported. He denies dizziness, vision issues, weakness, or numbness. Nursing reports no new events. An MRI of the brain was obtained January 23 which showed central hemorrhage with surrounding edema in the posterior left parietal lobe. A repeat CT scan of the head was obtained today. I reviewed these films and believe the hemorrhage has resorted some but a final report is pending. Laboratory studies today reveal some mild anemia as before. Chem profile reveals the elevated BUN and creatinine as before as well as a mildly elevated glucose at 124. Blood pressure is 132/76 and he is afebrile. Results & Data ([facility]) Vital Signs (Past 12 Hours) Vital Signs Temp Pulse Resp BP BP Pulse Ox 01/30/22 08:29 36.7 C 70 19 132/76 97 01/30/22 03:40 36.2 C L 50 L 17 168/85 H 97 01/29/22 23:22 36.3 C L 53 L 17 150/79 H 98 Exam (Neuro) Physical Exam: He is awake and alert. Speech is without obvious aphasia or dysarthria. Mood and affect seem normal appropriate. I believe he does have some short and long-term memory issues. Extraocular eye muscles are intact without nystagmus. There is no facial droop. Tongue is midline. Neck is supple. Spine is not tender to palpation. With outstretched arms there is no obvious drift. There is no ataxia on finger nose testing and there is no tremor. Motor strength seems 5/5 diffusely in all major muscle groups in arms and legs both proximally distally. 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
[2022-01-30] MEDS ORDERED: POLYETHYLENE (MIRALAX) 17 GM PACK PO PRN (10:43)
[2022-01-31] MEDS: niMODipine 30 MG CAP PO SCH ×7 (00:07→23:45)
[2022-01-31] MEDS: levETIRAcetam ORAL SOLN 100MG/ML PO SCH ×2 (04:51→17:32)
--- NOTE | 2022-01-31 07:05 | Hospitalist Progress Note ---
Date of Service January 31, 2022 Assessment & Plan (1) Subarachnoid hemorrhage: Plan: Con is an 86 year old male w/ PmHx of SAH in October 2019, afib s/p watchman procedure DM2, CKD stage III, sick sinus syndrome s/p cardiac pacemaker, CAD, carotid artery stenosis,ischemic cardiomyopathy, HTN, HLD, and GERDadmitted for subarachnoid hemorrhage. ()Subarachnoid hemorrhage: - Discussion with pt's family on 01/21 who holds POA states they do not want neurosurgical intervention - Will continue medical management- BP monitoring and management as below, seizure treatment - CT Head repeat 01/21 with no interval change in left parietal lobe subarachnoid hemorrhage but disproportionately high edema -No interval change on 01/22 CT -Brain MRI 01/23- no new lesion/mass or focal findings noted -Repeat CT scan head 01/30 stable exam unchanged appearance - Neurology consulted -Continue medical management- BP control, continue nimodipine 21 days, started 01/21. Keep off antiplatelet anticoagulants -Recommended CT angiogram of head/neck but as family declining surgery, will defer at this time -MRA 2019 for previous SAH negative for any vascular lesion -PT/OT recommended SNF care on discharge -Spoke with pt's son/POA on 01/21 to discuss disposition planning -Case management sent referral to SNF, placement found at [facility] tomorrow, requires COVID testing tomorrow AM ()Hypertension: - BPs stable in SBPs 140s-150s/DBP 70s-80s - Continue metoprolol tartrate 75 mg BID (home dose is metoprolol succinate 100 mg qAM) - Increased nimodipine to 60 mg q4h -Will only remain on this medication for up to 21 days, started 01/21 - Avoiding PRN Enalapril use in setting of UZMA -Anticipate discharging on metoprolol tartrate 75 mg BID + nimodipine 60 mg q4h -Consider adding CCB such as amlodipine in place of nimodipine for outpatient regimen ()CKD (chronic kidney disease), stage III: UZMA on CKD3 - Cr stable today 1.68, baseline ~1.2 -Suspect this may be due to hypoperfusion of kidneys secondary to Enalapril/possibly metoprolol - Encouraged oral hydration and IVF repletion- 1L NSS - Renally dose medications as able - Trend BMP ()Seizure: - History of such after initial SAH in October 2019, placed on prophylactic Keppra at that time and has not had a seizure since - Loaded with Keppra in ED as he did have 1 confirmed witnessed seizure - continue Keppra 750 g PO q12 hours (home dose keppra 500mg PO BID) - Continue to monitor. No further seizures noted - Seizure precautions ()Atrial fibrillation: - Currently rate-controlled. No longer on antiplatelet anticoagulation s/p Watchman - Pt does have pacemaker - Continue metoprolol tartrate 75 mg BID ()Hypomagnesemia: - 1.2 on 01/20, resolved to 1.7 s/p repletion ()Coronary artery disease: - Holding statin for hemorrhage - Continue metoprolol tartrate 75 mg BID ()Hyperlipidemia: - Holding statin in setting of hemorrhage ()GERD (gastroesophageal reflux disease): - Continue daily Pepcid ()Diabetes mellitus, type II: - Hold metformin - Novolog ISS FENGI: Easy to chew Code status: DNR/DNI DVT ppx: SCDs, hold chemoprophylaxis due to hemorrhage Isolation: None Dispo: med/surg (2) Hypertension: (3) CKD (chronic kidney disease), stage III: (4) Seizure: (5) Atrial fibrillation: (6) Hypomagnesemia: (7) Coronary artery disease: (8) Hyperlipidemia: (9) GERD (gastroesophageal reflux disease): (10) Diabetes mellitus, type II: Admission and Anticipated Discharge Date Admission Date: January 20, 2022 Supervising Physician Co-Signing Physician Notes I personally examined the patient and verified all pascual points of history and exam, discussed case, and agree with decision making with Dr Wolfe no new complaints discussed dispo planning - he expressed some confusion - tried to explain further, also emphasized none was his responsibility to arrange vitals noted nad heent nc at mmm breathing unlabored no accessory muscles good effort ICH - doing surprisingly well overall. 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 He states he lives alone but can come over to care for him, states he can traverse steps but understands he is weaker than before. He can identify the day and month, states year is 1999, location in [place], he understands he has some memory problems and will likely forget this. Patient oriented to self, recalls his birthdate. Per case management placement has been found at [facility], plan to DC tomorrow. Review of Systems Review of Systems: Headache occasional Negative fever chills Negative dizziness Negative chest pain palpitations SOB Negative nausea vomitting diarrhea constipation Negative numbness tingling rash swelling Physical Exam Constitutional: WD/WN, vitals as above Eyes: PERRL, conjunctivae normal, anicteric sclerae ENMT: external ear and nose normal, oropharynx normal Neck: trachea midline, no thyromegaly Respiratory: normal respiratory effort, lungs clear to auscultation Cardiovascular: RRR, no murmur, no edema Chest (Breasts): Chest: normal inspection of chest Gastrointestinal (Abdomen): normal bowel sounds, soft, nontender, no hepatosplenomegaly Skin: no rashes, warm and dry Neurologic: CN's II-XI intact bilaterally Psychiatric: Orientation: oriented to person Results & Data Results & Data ([facility]) Vital Signs (Past 12 Hours) Vital Signs Temp Pulse Pulse Resp BP Pulse Ox 01/31/22 04:00 36.3 C L 50 L 18 141/69 H 97 01/31/22 00:11 36.5 C 52 L 18 148/80 H 97 01/30/22 23:52 50 L 01/30/22 19:45 36.7 C 54 L 17 144/79 H 94 Diagnostic Findings Laboratory Results WBC 8.62 K/uL (4.8-10.8) 01/31/22 06:55 RBC 4.13 M/uL (4.7-6.1) L 01/31/22 06:55 Hgb 12.0 g/dL (14.0-18.0) L 01/31/22 06:55 Hct 36.4 % (42-52) L 01/31/22 06:55 MCV 88.1 fL (80-100) 01/31/22 06:55 MCH 29.1 pg (25-34) 01/31/22 06:55 MCHC 33.0 g/dL (32-36) 01/31/22 06:55 RDW Std Deviation 46.7 fL (36.4-46.3) H 01/31/22 06:55 RDW Coeff of Crispin 14.7 % (11.5-14.5) H 01/31/22 06:55 Plt Count 264 K/uL (130-400) 01/31/22 06:55 MPV 9.1 fL (7.4-10.4) 01/31/22 06:55 Immature Gran % (Auto) 0.5 % 01/22/22 06:06 Neut % (Auto) 72.4 % 01/22/22 06:06 Lymph % (Auto) 16.6 % 01/22/22 06:06 Crisp % (Auto) 9.3 % 01/22/22 06:06 Eos % (Auto) 0.9 % 01/22/22 06:06 Baso % (Auto) 0.3 % 01/22/22 06:06 Neut # (Auto) 6.95 K/uL (1.4-6.5) H 01/22/22 06:06 Lymph # (Auto) 1.60 K/uL (1.2-3.4) 01/22/22 06:06 Crisp # (Auto) 0.89 K/uL (0.11-0.59) H 01/22/22 06:06 Eos # (Auto) 0.09 K/uL (0-0.5) 01/22/22 06:06 Baso # (Auto) 0.03 K/uL (0-0.2) 01/22/22 06:06 Immature Gran # (Auto) 0.05 K/uL (0.00-0.02) H 01/22/22 06:06 PT 11.9 Seconds (9.0-12.0) 01/20/22 11:35 INR 1.1 (0.9-1.1) 01/20/22 11:35 Sodium 141 mmol/L (136-145) 01/31/22 06:55 Potassium 4.3 mmol/L (3.5-5.1) 01/31/22 06:55 Chloride 109 mmol/L (98-107) H 01/31/22 06:55 Carbon Dioxide 24 mmol/L (21-32) 01/31/22 06:55 Anion Gap 8 (3-11) 01/31/22 06:55 BUN 39 mg/dl (6-23) H 01/31/22 06:55 Creatinine 1.68 mg/dl (0.6-1.4) H 01/31/22 06:55 Est Cr Clr Drug Dosing 30.0 ml/min 01/31/22 06:55 Est GFR ( Amer) 41.7 ml/min 01/31/22 06:55 Est GFR (Non-Af Amer) 36.0 ml/min 01/31/22 06:55 BUN/Creatinine Ratio 23.2 (10-20) H 01/31/22 06:55 Glucose 133 mg/dl (70-99(Fasting)) H 01/31/22 06:55 POC Glucose 141 mg/dl (70-99) H 01/30/22 20:32 Lactate 5.2 mmol/L (0.4-2.0) H* 01/20/22 14:33 Calcium 9.1 mg/dl (8.5-10.1) 01/31/22 06:55 Phosphorus 3.9 mg/dl (2.5-4.9) 01/20/22 11:35 Phosphorus Cancelled 01/20/22 11:35 Magnesium 1.2 mg/dl (1.7-2.4) L 01/20/22 11:35 Total Bilirubin 1.2 mg/dl (0.2-1.0) H 01/21/22 05:26 AST 13 U/L (13-39) 01/21/22 05:26 ALT 8 U/L (7-52) 01/21/22 05:26 Alkaline Phosphatase 80 U/L (34-104) 01/21/22 05:26 Troponin I High Sens 45.7 pg/ml (0-20) H 01/20/22 11:35 Total Protein 6.5 gm/dl (6.0-8.3) 01/21/22 05:26 Albumin 3.8 gm/dl (3.4-5.0) 01/21/22 05:26 Globulin 2.7 gm/dl (2.5-4.0) 01/21/22 05:26 Albumin/Globulin Ratio 1.4 (0.9-2) 01/21/22 05:26 Procalcitonin 0.05 ng/ml (0-0.5) 01/20/22 11:35 Urine Color Yellow 01/22/22 18:40 Urine Appearance Clear (Clear) 01/22/22 18:40 Urine pH 5.0 (4.5-7.5) 01/22/22 18:40 Ur Specific Saline 1.012 (1.000-1.030) 01/22/22 18:40 Urine Protein 1+ (Negative) H 01/22/22 18:40 Urine Glucose (UA) 1+ (Negative) H 01/22/22 18:40 Urine Ketones Trace (Negative) H 01/22/22 18:40 Urine Blood Trace (Negative) H 01/22/22 18:40 Urine Nitrite Negative (Negative) 01/22/22 18:40 Urine Bilirubin Negative (Negative) 01/22/22 18:40 Urine Urobilinogen Negative (Negative) 01/22/22 18:40 Ur Leukocyte Esterase Negative (Negative) 01/22/22 18:40 Urine WBC (Auto) 1-5 /hpf (0-5) 01/22/22 18:40 Urine RBC (Auto) 0-4 /hpf (0-4) 01/22/22 18:40 U Hyaline Cast (Auto) 1-5 /lpf (0-5) 01/22/22 18:40 U Epithel Cells (Auto) 10-20 /lpf (0-5) H 01/22/22 18:40 Urine Bacteria (Auto) Negative (Negative) 01/22/22 18:40 Levetiracetam 20.9 mcg/mL (6.0-46.0) 01/20/22 11:35 SARS-CoV-2 (PCR) NEGATIVE (Negative) 01/20/22 13:26 Influenza Type A (PCR) Negative (Neg) 01/20/22 13:26 Influenza Type B (PCR) Negative (Neg) 01/20/22 13:26 RSV (RT-PCR) Negative (Neg) 01/20/22 13:26 Impressions Abdomen/Pelvis CT 01/20/22 12:08 CT abd pelvis IV con only CLINICAL HISTORY: diarrhea, ams COMPARISON STUDY: No previous studies for comparison. CT DOSE: 1107.75 mGycm TECHNIQUE: Standard CT of the Abdomen and Pelvis was performed with IV contrast. A dose lowering technique was utilized adhering to the principles of ALARA. Contrast Volume: Optiray 320, 94 ml. The patient did not receive oral contrast. FINDINGS: Lung base: The lung bases are clear. There is moderate cardiomegaly with cardiac pacer in place. Abdominal cavity: There is no evidence for abdominal mass, adenopathy or ascites. Liver: There is homogeneous attenuation of the liver parenchyma. There is no evidence for enhancing mass lesion. Spleen: There is homogeneous attenuation of the splenic parenchyma. There is no enhancing mass lesion. Pancreas: There is homogeneous attenuation of the pancreatic parenchyma. There is no evidence for mass lesion or peripancreatic fluid collection. Gall Bladder: The gallbladder is well distended with no evidence for intraluminal calculi, wall thickening or pericholecystic edema. Adrenal glands: The adrenal glands are normal in size and attenuation. There is no evidence for enhancing mass lesion. Kidneys: There is a horseshoe kidney present. There is no evidence for renal calculus or hydronephrosis. There is no evidence for enhancing mass. Bowel: The bowel loops are normally placed within the abdomen and pelvis without evidence for dilatation or obstruction. There is no evidence for mass lesion. There is extensive sigmoid diverticulosis without evidence for diverticulitis. No significant fluid is seen within the colon. There are no inflammatory changes present. There is no evidence for free air. Bladder: The bladder is distended with an abnormal thin pleural line extending along the right lateral wall. The presence of an underlying mass cannot be excluded. This is best seen on image 392. There is also impingement upon the floor the bladder related to an enlarged prostate. : There is no evidence for pelvic mass or adenopathy. There is no evidence for pelvic ascites. The prostate is mildly enlarged. Vasculature: There is no evidence for aneurysmal dilatation of the abdominal aorta. Extensive atherosclerotic calcification is present. Osseous structures: Degenerative changes are seen within the spine. IMPRESSION: 1. Extensive sigmoid diverticulosis without evidence for diverticulitis. 2. No fluid levels within the colon. 3. Suspicion of a mass involving the lateral wall of the bladder on the right. Follow-up is necessary. 4. Incidental note of a horseshoe kidney. 5. Additional nonacute findings are delineated above. ACT 112: Negative or not required by law. Electronically signed by: Suman Mcwilliams M.D. 01/20/2022 1:38 PM Chest X-Ray 01/20/22 12:09 XR chest 1V portable CLINICAL HISTORY: SEPSIS TECHNIQUE: Single frontal radiograph of the chest was obtained. Comparison: Comparison is made to chest radiograph 05/13/2020 FINDINGS: Dual lead pacemaker is seen. Cardiomegaly is noted. The lungs are clear. No evidence of pleural effusion or pneumothorax. IMPRESSION: No acute chest disease. ACT 112: Negative or not required by law. Electronically signed by: Domo Key M.D. 01/20/2022 12:51 PM Brain MRI 01/23/22 09:11 MR brain wo/w con CLINICAL HISTORY: subarachnoid hemorrhage. COMPARISON STUDY: CT brain from 01/22/2022 and previous MR from 11/03/2019 TECHNIQUE: Multiplanar multisequence images of the brain were performed before and after Gadavist, 7.5 mL of IV contrast. Diffusion weighted imaging and ADC mapping was also performed. FINDINGS: Extra-axial space: There is no evidence for a subdural hematoma, There are no extra-axial fluid collections. Ventricles and cisterns: The ventricles are mildly dilated bilaterally. There is no evidence for midline shift or mass effect. Parenchyma: On the noncontrast images, there is abnormal susceptibility artifact present on the axial T2 Star fast weighted imaging characteristic of the presence of underlying hemorrhage. This is at the site of the small subarachnoid hemorrhage. No additional hemorrhages are identified. There is abnormal diffusion weighted imaging surrounding the site of hemorrhage corresponding to the edema present. There is normal brannon-white differentiation. There is mild cerebral cortical atrophy present. There is bright signal seen on FLAIR weighted sequences within the centrum semiovale and periventricular white matter characteristic of remote small vessel disease. The midline structures are unremarkable. The posterior fossa structures appear normal. On postcontrast images, there is very minimal enhancement within the edema surrounding the site of hemorrhage. This is most likely related to vasogenic enhancement. No focal ring enhancement suggestive of a primary or metastatic lesion is seen. No other sites of enhancement are identified. Osseous structures: The paranasal sinuses are well aerated. The mastoid air cells are well aerated. Soft tissues: No focal soft tissue abnormalities are identified. IMPRESSION: 1. MRI confirms the presence of central hemorrhage with surrounding edema at the site of small subarachnoid hemorrhage in the posterior left parietal lobe. 2. However, there is minimal surrounding vasogenic enhancement demonstrated. 3. Therefore repeat CT in one week is recommended to demonstrate for resolution. Daily CTs are not necessary unless the patient has a change in symptoms. ACT 112: Negative or not required by law. Electronically signed by: Suman Mcwilliams M.D. 01/23/2022 12:[address] 01/30/22 10:00 CT head/brain wo con CLINICAL HISTORY: 86 years-old Male with Subarachnoid hemorrhage progress. Follow-up study in a patient with history of subarachnoid hemorrhage. TECHNIQUE: Multiple axial CT images of the head were obtained without contrast. A dose lowering technique was utilized adhering to the principles of ALARA. CT DOSE: 614.27 mGy.cm COMPARISON: Brain MRI 01/23/2022, head CT 01/22/2022 FINDINGS: Age-related involutional changes. White matter hypodensities suggestive of chronic microvascular ischemic disease. Unchanged appearance of the cortically- based hyperdensity within the left parietal lobe with underlying left parietal edema. No midline shift or intraparenchymal hemorrhage. Tiny chronic lacunar infarcts of the pontine brainstem, cerebellum and basal ganglia. No acute or subacute territorial infarct. The calvarium is intact. The paranasal sinuses, mastoid air cells, and middle ear cavities are clear. IMPRESSION: 1. Stable exam with unchanged appearance of the cortically-based hyperdensity of the left parietal lobe suggestive of subarachnoid hemorrhage versus laminar necrosis/petechial hemorrhage with adjacent left parietal lobe edema. 2. No midline shift. 3. Involutional changes with chronic microvascular ischemic disease. ACT 112: Negative or not required by law. The above report was generated using voice recognition software. It may contain grammatical, syntax or spelling errors. Electronically signed by: Elder Spann M.D. 01/30/2022 10:13 AM Medications Administered Current Inpatient Medications Acetaminophen (Acetaminophen 325 Mg Tab) 650 mg PO Q4H PRN PRN Reason: Pain Stop: 02/23/22 10:17 Last Admin: 01/24/22 10:31 Dose: 650 mg Documented by: Dextrose (Dextrose 50% 50 Ml Syringe) 25 - 50 ml IV UD PRN; Protocol PRN Reason: Hypoglycemia Protocol Stop: 02/22/22 10:14 Famotidine (Famotidine 20 Mg Tab) 20 mg PO QAM JOANN Stop: 02/24/22 08:59 Last Admin: 01/31/22 08:08 Dose: 20 mg Documented by: Glucagon (Glucagon For Inj 1 Mg Vial) 1 mg IM UD PRN; Protocol PRN Reason: Hypoglycemia Protocol Stop: 02/22/22 10:14 Glucose (Glucose 40% Gel 15 Gm Tube) 15 - 30 gm PO UD PRN; Protocol PRN Reason: Hypoglycemia Protocol Stop: 02/22/22 10:14 Glucose (Glucose 10 Tabs/Tube) 4 - 8 tabs PO UD PRN; Protocol PRN Reason: Hypoglycemia Protocol Stop: 02/22/22 10:14 Enalaprilat 1.25 mg/ Dextrose 26 mls @ 100 mls/hr IV Q6H PRN PRN Reason: hypertension SBP > 170 Stop: 02/23/22 12:59 Insulin Aspart (Insulin Aspart Per Unit) 0 units SC ACHS [facility] Stop: 02/22/22 11:29 Last Admin: 01/31/22 08:08 Dose: 5 units Documented by: Levetiracetam (Levetiracetam Oral Soln 100mg/Ml) 750 mg PO Q12H [facility] Stop: 02/23/22 16:59 Last Admin: 01/31/22 04:51 Dose: 750 mg Documented by: Metoprolol Tartrate (Metoprolol Tartrate 25 Mg Tab) 75 mg PO BID [facility] Stop: 02/24/22 20:59 Last Admin: 01/31/22 08:08 Dose: 75 mg Documented by: Miscellaneous (Carbohydrates For Hypoglycemia ) 15 - 30 gm PO UD PRN PRN Reason: Hypoglycemia Treatment Stop: 02/22/22 10:14 Nimodipine (Nimodipine 30 Mg Cap) 60 mg PO Q4 [facility] Stop: 02/27/22 11:59 Last Admin: 01/31/22 09:13 Dose: 60 mg Documented by: Ondansetron HCl (Ondansetron Inj 2 Mg/Ml 2 Ml Vial) 4 mg IV Q6H PRN PRN Reason: Nausea Stop: 02/19/22 16:15 Polyethylene Glycol (Polyethylene (Miralax) 17 Gm Pack) 17 gm PO DAILY PRN PRN Reason: Constipation Stop: 03/01/22 10:42 Resident Activity Tracking Resident Involvement: Resident Care Provided Care Provided: Adult Hospital Medicine
[2022-01-31 07:32] LABS: Hematocrit (blood only) 36.4 % (42-52); Mean Corpuscular Hemoglobin 29.1 pg (25-34); Mean Corpuscular Volume 88.1 fL (80-100); Mean Platelet Volume 9.1 fL (7.4-10.4); Platelet Count 264 K/uL (130-400); RDW Coefficient of Variation 14.7 % (11.5-14.5); RDW Standard Deviation 46.7 fL (36.4-46.3); Red Blood Count 4.13 M/uL (4.7-6.1); White Blood Count 8.62 K/uL (4.8-10.8)
[2022-01-31 07:54] LABS: BUN Creatinine Ratio 23.2 (10-20); Calcium 9.1 mg/dl (8.5-10.1); Est GFR (African American) 41.7 ml/min; Potassium 4.3 mmol/L (3.5-5.1)
[2022-01-31] MEDS: METOPROLOL TARTRATE 25 MG TAB PO SCH ×2 (08:08→20:59)
[2022-01-31] MEDS: FAMOTIDINE 20 MG TAB PO SCH (08:08)
[2022-01-31] MEDS: INSULIN ASPART PER UNIT SC SCH ×4 (08:08→20:58)
--- NOTE | 2022-01-31 18:55 | Billing Data ---
Date of Service January 31, 2022 Coding Level of Care Code 91431 Subseq Hosp Care Lvl 1
[2022-02-01] MEDS: niMODipine 30 MG CAP PO SCH ×3 (04:58→12:18)
[2022-02-01] MEDS: levETIRAcetam ORAL SOLN 100MG/ML PO SCH (05:01)
--- NOTE | 2022-02-01 08:02 | Discharge Summary ---
Date of Service February 01, 2022 Admission HPI Per Admitting Provider Con Olsen is an 86 y/o male with PMH of SAH in October 2019, afib s/p watchman procedure DM2, CKD stage III, sick sinus syndrome s/p cardiac pacemaker, CAD, carotid artery stenosis,ischemic cardiomyopathy, HTN, HLD, and GERD who presents today with abnormal behavior and confusion. Per patient's partner, he has been acting strange for the past 3 days, reportedly shouting out with noncoherent speech, walking around naked at home, combative, and unable to participate in his own care. He has also had new fecal incontinence. called his PCP, who recommended they present to ED for further evaluation. Patient unable to provide review of systems, however partner denies any recent falls, he had been in his normal state of health prior to this occurring. In ED, VS have been elevated, otherwise vital signs within normal limits and stable. Head CT showed subtle acute subarachnoid hemorrhage in left parietal lobe, no midline shift. Labs significant for chronic anemia, stable renal func tion, low magnesium, T bili 1.5. Glucose 142. HS troponin 45.7. CXR unremarkable, CT A/P revealed mass involving lateral wall bladder, extensive diverticulosis without diverticulitis. No other acute findings. In ED, patient had witnessed seizure-like activity by nursing staff, seizure activity quickly stopped and patient was alert but with expressive aphasia, moving all extremities. Approximately 2 hours later, he began mumbling and had a recurrent seizure. Did have postictal phase after this. H was given fluids, magnesium, Ativan, and a loading dose of Keppra. Hospital service consulted for further evaluation and admission. Admission Exam Per Admitting Provider General: sleeping s/p Ativan, in no acute distress. Head: Normocephalic, atraumatic ENT: PERRL, EOMI, no pharyngeal exudate, mucous membranes moist Chest: Clear to auscultation, on room air, no adventitious breath sounds Cardiac: Regular rate and rhythm, no murmur, no JVD, normal peripheral pulses, good capillary refill Abdominal: NABS x 4 quadrants, soft, nontender to palpation, no rebound, guarding or tenderness Extremities: Normal inspection, no peripheral edema or erythema, calfs nontender to palpation Psych: Unable to assess Neuro: altered mentation, very drowsy currently s/p ativan Skin: no rash or erythema Principal Diagnosis Sub arachnoid hemorrhage Discharge Exam Constitutional WD/WN, vitals as above Eyes PERRL, conjunctivae normal, anicteric sclerae ENMT external ear and nose normal, oropharynx normal Neck trachea midline, no thyromegaly Respiratory normal respiratory effort, lungs clear to auscultation Cardiovascular RRR, no murmur, no edema Chest (Breasts) Chest: normal inspection of chest Gastrointestinal (Abdomen) normal bowel sounds, soft, nontender, no hepatosplenomegaly Skin no rashes, warm and dry Neurologic CN's II-XI intact bilaterally Psychiatric Orientation: oriented to person Discharge Data Allergies Allergy/AdvReac Type Severity Reaction Status Date / Time No Known Drug Allergies Allergy Verified 01/20/22 13:31 Consultations 01/20/22 14:19 ED Decision to Admit Stat 01/20/22 16:16 Consult Neurology Routine Ordered Studies 01/20/22 12:08 CT abd pelvis IV con only Stat CT head/brain wo con Stat 01/21/22 06:00 CT head/brain wo con Routine 01/21/22 14:00 CT head/brain wo con Routine 01/22/22 14:29 CT head/brain wo con Urgent 01/23/22 09:11 MR brain wo/w con Routine 01/30/22 10:00 CT head/brain wo con Routine Hospital Course (1) Subarachnoid hemorrhage: Con is an 86 year old male w/ PmHx of SAH in October 2019, afib s/p watchman procedure DM2, CKD stage III, sick sinus syndrome s/p cardiac pacemaker, CAD, carotid artery stenosis,ischemic cardiomyopathy, HTN, HLD, and GERDadmitted for subarachnoid hemorrhage. ()Subarachnoid hemorrhage: - Discussion with pt's family on 01/21 who holds POA states they do not want neurosurgical intervention - Will continue medical management- BP monitoring and management as below, seizure treatment - CT Head repeat 01/21 with no interval change in left parietal lobe subarachnoid hemorrhage but disproportionately high edema -No interval change on 01/22 CT -Brain MRI 01/23- no new lesion/mass or focal findings noted -Repeat CT scan head 01/30 stable exam unchanged appearance - Neurology consulted -Continue medical management- BP control, continue nimodipine 21 days, started 01/21, end 02/10. Keep off antiplatelet anticoagulants -Recommended CT angiogram of head/neck but as family declining surgery, will defer at this time -MRA 2019 for previous SAH negative for any vascular lesion -PT/OT recommended SNF care on discharge -Spoke with pt's son/POA on 01/21 to discuss disposition planning -Case management found placement at [facility] ()Hypertension: - BPs stable in SBPs 140s-150s/DBP 70s-80s - Continue metoprolol tartrate 75 mg BID - Increased nimodipine to 60 mg q4h -Will only remain on this medication for up to 21 days, started 01/21, end on 02/10 - may resume Amlodipine 10mg daily on 02/10 (do not give nimodipine at same day) - may resume furosemide 20mg daily in outpatient ()CKD (chronic kidney disease), stage III: UZMA on CKD3 - Cr stable at 1.68, baseline ~1.2 - Encouraged oral hydration with IVF repletion as needed ()Seizure: - History of such after initial SAH in October 2019, placed on prophylactic Keppra at that time and has not had a seizure since - Loaded with Keppra in ED as he did have 1 confirmed witnessed seizure - continue Keppra 750 g PO q12 hours - Continue to monitor. No further seizures noted ()Atrial fibrillation: - Currently rate-controlled. No longer on antiplatelet anticoagulation s/p Watchman - Pt does have pacemaker - Continue metoprolol tartrate 75 mg BID ()Hypomagnesemia: - 1.2 on 01/20, resolved to 1.7 s/p repletion ()Coronary artery disease: - Held statin for hemorrhage in hospital, patient to start Rosuvastatin 20mg in outpatient given it is more lipophobic compared to atorvastatin, less likely to cross BBB and cause recurrent ICH - Continue metoprolol tartrate 75 mg BID ()Hyperlipidemia: - Holding statin in setting of hemorrhage in hospital. Patient to start Rosuvastatin 20mg in outpatient given it is more lipophobic compared to atorvastatin, less likely to cross BBB and cause recurrent ICH ()GERD (gastroesophageal reflux disease): - Continue daily Pepcid ()Diabetes mellitus, type II: - Patient switched to insulin in hospital, may resume metformin 500mg BID in outpatient ()COVID testing -02/01 covid test negative -ordered COVID vaccine booster, recieved 02/01 ADARSHI: Easy to chew Code status: DNR/DNI DVT ppx: SCDs Isolation: None (2) Hypertension: (3) CKD (chronic kidney disease), stage III: (4) Seizure: (5) Atrial fibrillation: (6) Hypomagnesemia: (7) Coronary artery disease: (8) Hyperlipidemia: (9) GERD (gastroesophageal reflux disease): (10) Diabetes mellitus, type II: Total Time Total Time Spent Total Time Spent (In Minutes): see attending attestation Discharge Plan Discharge Items Patient Disposition: Transfer Inpatient Rehab Fac Reason For Visit: SUB ARACHNOID HEMMORHAGE Discharge Diagnosis: Sub arachnoid hemmorhage Activity: Per Instructions section Non-emergency contact: Primary Care Provider Call non-emergency contact if: you have any medication questions, your symptoms worsen and you have a fever Follow-up/Referrals: Garcia Simms, [Primary Care Provider] - Diet: Carb Consistent or DM2 and Heart Healthy Addtl Attending Provider Instructions: Con is an 86 year old male w/ PmHx of SAH in October 2019, afib s/p watchman procedure DM2, CKD stage III, sick sinus syndrome s/p cardiac pacemaker, CAD, carotid artery stenosis,ischemic cardiomyopathy, HTN, HLD, and GERDadmitted for subarachnoid hemorrhage. ()Subarachnoid hemorrhage: - Discussion with pt's family on 01/21 who holds POA states they do not want neurosurgical intervention - Will continue medical management- BP monitoring and management as below, seizure treatment - CT Head repeat 01/21 with no interval change in left parietal lobe subarachnoid hemorrhage but disproportionately high edema -No interval change on 01/22 CT -Brain MRI 01/23- no new lesion/mass or focal findings noted -Repeat CT scan head 01/30 stable exam unchanged appearance - Neurology consulted -Continue medical management- BP control, continue nimodipine 21 days, started 01/21, end 02/10. Keep off antiplatelet anticoagulants -Recommended CT angiogram of head/neck but as family declining surgery, will defer at this time -MRA 2019 for previous SAH negative for any vascular lesion -PT/OT recommended SNF care on discharge -Spoke with pt's son/POA on 01/21 to discuss disposition planning -Case management found placement at [facility] ()Hypertension: - BPs stable in SBPs 140s-150s/DBP 70s-80s - Continue metoprolol tartrate 75 mg BID. Hold for Systolic <100 or HR<60 - Increased nimodipine to 60 mg q4h -Will only remain on this medication for up to 21 days, started 01/21, end on 02/10 - may resume Amlodipine 10mg daily on 02/10 (do not give nimodipine at same day) - may resume furosemide 20mg daily in outpatient ()CKD (chronic kidney disease), stage III: UZMA on CKD3 - Cr stable at 1.68, baseline ~1.2 - Encouraged oral hydration with IVF repletion as needed ()Seizure: - History of such after initial SAH in October 2019, placed on prophylactic Keppra at that time and has not had a seizure since - Loaded with Keppra in ED as he did have 1 confirmed witnessed seizure - continue Keppra 750 g PO q12 hours - Continue to monitor. No further seizures noted ()Atrial fibrillation: - Currently rate-controlled. No longer on antiplatelet anticoagulation s/p Watchman - Pt does have pacemaker - Continue metoprolol tartrate 75 mg BID ()Hypomagnesemia: - 1.2 on 01/20, resolved to 1.7 s/p repletion ()Coronary artery disease: - Held statin for hemorrhage in hospital, patient to start Rosuvastatin 20mg in outpatient given it is more lipophobic compared to atorvastatin, less likely to cross BBB and cause recurrent ICH - Continue metoprolol tartrate 75 mg BID ()Hyperlipidemia: - Held statin in setting of hemorrhage in hospital. Patient to start Rosuvastatin 20mg in outpatient given it is more lipophobic compared to atorvastatin, less likely to cross BBB and cause recurrent ICH ()GERD (gastroesophageal reflux disease): - Continue daily Pepcid ()Diabetes mellitus, type II: - Patient switched to insulin in hospital, may resume metformin 500mg BID in outpatient ()COVID testing -02/01 covid test negative -ordered COVID vaccine booster, received 02/01 FENGI: Easy to chew Code status: DNR/DNI DVT ppx: SCDs Isolation: None Pending Studies at Discharge: No Stand-Alone Forms: My [facility] Skilled Items Patient informed of condition?: Yes DNR: Yes Discharge Level of Care: Acute rehab Communicable Disease: No Discharge Prognosis: Stable Lines: None Urinary Catheter: No Medications and DC Order Prescriptions: New metoprolol tartrate 25 mg Tablet 75 mg PO BID 30 Days Qty: 180 RF: 0 rosuvastatin 20 mg tablet 20 mg PO DAILY 30 Days Qty: 30 RF: 0 levetiracetam [Keppra] 100 mg/mL Solution 750 mg PO Q12H 30 Days Qty: 473 RF: 0 nimodipine 30 mg capsule 60 mg PO Q4H 9 Days Qty: 108 RF: 0 Continued famotidine 20 mg tablet 20 mg PO BID Qty: 180 RF: 3 nitroglycerin 0.4 mg tablet, sublingual 0.4 mg SL Q5M PRN (Reason: Chest Pain) RF: 0 metformin 500 mg tablet 500 mg PO BIDM Qty: 180 RF: 3 cholecalciferol (vitamin D3) 25 mcg (1,000 unit) capsule 1,000 units PO QAM RF: 0 acetaminophen [Tylenol] 325 mg Tablet 325 mg PO QID PRN (Reason: Pain) RF: 0 furosemide 20 mg tablet 20 mg PO QAM RF: 0 amlodipine 10 mg tablet 10 mg PO QAM Qty: 90 RF: 3 Discontinued atorvastatin 40 mg tablet 40 mg PO HS Qty: 90 RF: 3 levetiracetam [Keppra] 500 mg tablet 500 mg PO BID Qty: 180 RF: 3 metoprolol succinate 100 mg tablet extended release 24 hr 100 mg PO QAM RF: 0 Discharge Orders: Discharge Order (Routine); Ordered 02/01/22 Ordered By: Marta Wolfe Admission Data Admit Date/Time: 01/20/22 14:51 Attending Provider: Dylan Delaney Admit Provider: Landon Estes Primary Care Provider: Garcia Simms Other Providers: [facility] ; Ez Guerrero [facility] [place] ; [facility] ; Kalia Trevino ; Landon Estes ; Kun Steward Other Interventions: Discharge Summary Assessment (RN) Last Done: 02/01/22 10:47 Supervising Physician Co-Signing Physician Notes Chart reviewed and case discussed with Dr. Wolfe. Unfortunately due to other events in the hospitalI was unable to physically see the patient prior to discharge. Agree with Dr. Wolfe as above ICH - doing surprisingly well overall. for rehab elevated creatinine - suspect poorer PO fluid intake - encourage fluids, follow clinically, follow periodic BMP at SNF Resident Activity Tracking Resident Involvement: Resident Care Provided Care Provided: Adult [facility]
[2022-02-01] MEDS: METOPROLOL TARTRATE 25 MG TAB PO SCH (08:06)
[2022-02-01] MEDS: FAMOTIDINE 20 MG TAB PO SCH (08:06)
[2022-02-01] MEDS: INSULIN ASPART PER UNIT SC SCH ×2 (08:09→12:18)
[2022-02-01] MEDS ORDERED: COVID-19 VACC, TRIS(PFIZER)/PF 30 MCG/0.3 ML VIAL IM ONE (09:32)
== END 2022-02-01 13:17 | DRG 65 ==
LOC: ED 11:26 → 2S 14:51 → SUATTDRO 14:51 → 2S 15:51 → 2N 01-31 18:15
DX: I12.9 Hypertensive chronic kidney disease with stage 1 through stage 4 chronic kidney disease, or unspecified chronic kidney disease; I60.9 Nontraumatic subarachnoid hemorrhage, unspecified; N17.9 Acute kidney failure, unspecified; Z79.84 Long term (current) use of oral hypoglycemic drugs; N40.0 Benign prostatic hyperplasia without lower urinary tract symptoms; Z66 Do not resuscitate; Z83.3 Family history of diabetes mellitus; Z95.5 Presence of coronary angioplasty implant and graft; Z95.828 Presence of other vascular implants and grafts; N18.30 Chronic kidney disease, stage 3 unspecified; E11.22 Type 2 diabetes mellitus with diabetic chronic kidney disease; I25.10 Atherosclerotic heart disease of native coronary artery without angina pectoris; G40.909 Epilepsy, unspecified, not intractable, without status epilepticus; K21.9 Gastro-esophageal reflux disease without esophagitis; E83.42 Hypomagnesemia; R47.01 Aphasia; Z95.0 Presence of cardiac pacemaker; I48.20 Chronic atrial fibrillation, unspecified; I69.111 Memory deficit following nontraumatic intracerebral hemorrhage